=== PATIENT | female | born 1945 | race Caucasian/White ===

== ENCOUNTER → 2016-09-21 | Outpatient (CLI) | payer OTHER ==
[~2016-09-21] MED LIST: ACET-749 PO; ATOR10TA82 PO; Atorvastatin PO; CALC500C3 PO; CLC100 PO; CLR10 PO; MENT1LOZ; METO25TA3 PO; MXZC25 PO; Metoprolol PO; SALINE; TRIATAB3 PO; Tums; Tylenol; [UNRECOGNIZED DRUG - CODE] NAE
--- NOTE | 2016-09-21 12:12 | DIAGNOSTIC IMAGING REPORT ---
RENAL ULTRASOUND CLINICAL HISTORY: Left renal lesion. COMPARISON STUDY: CT of the abdomen and pelvis March 23, 2016. TECHNIQUE: Sonography of the kidneys and the urinary bladder was performed. FINDINGS: The right kidney measures 9.9 x 5.5 x 4.3 cm and the left measures 10 x 5.2 x 5.6 cm. There is no hydronephrosis. There is a 1.7 cm left renal cyst. The 1.7 cm lesion arising from the lower pole of the left kidney shown on CT of March 23, 2016 is not visualized on this exam as the lower pole is obscured by overlying bowel gas. A 2.3 cm echogenic splenic lesion is unchanged since exam of May 14, 2015 and therefore likely benign. The bladder is unremarkable. IMPRESSION: 1. The 1.7 cm lesion arising from the lower pole of the left kidney shown on CT of March 23, 2016 is not visualized by sonography due to overlying bowel gas. 2. No hydronephrosis. Electronically signed by: Noah London M.D. 09/21/2016 12:11 PM Dictated Date/Time: 09/21/2016 12:07 PM
== END | disposition home or self-care (01) ==
LOC: C.ULTR 11:30
PROVIDERS: ATTEND Urology
DX: N28.89 Other specified disorders of kidney and ureter (principal); N28.9 Disorder of kidney and ureter, unspecified

== ENCOUNTER → 2016-10-26 | Day surgery (SDC) | payer OTHER ==
[2016-10-19 12:33] VITALS: Ht 165.1 cm; Wt 76.4 kg
[~2016-10-26] VITALS: Ht 165.1 cm; Wt 76.4 kg
[~2016-10-26] MED LIST changes: +500ML BSS 0.3ML EPI 1:1000PF IRRIG ONE; +ACETAMINOPHEN 325 MG TAB PO PRN; +AMVISC PLUS 0.8ML SYRINGE INT OCU ONE; +ATROPINE SULFATE 0.1 MG/ML 5ML SYR IV PRN; +AcetaZOLAMIDE 250 MG TAB PO SCH; -Atorvastatin PO; +BETAXOLOL HCL 0.25% OP SUSP PER DROP CHARGE OPL SCH; +BRIMONIDINE TART 0.2% OP SOLN PER DROP CHARGE ONE; +BSS FLUSH ONE; +ENDOCOAT 0.85ML SYRINGE INT OCU ONE; +EpINEphrine INJ 1MG/ML AMP 1 MG/ML AMP ONE; +LACTATED RINGER'S 1000ML 500 ML IV SCH; +LIDOCAINE 4% OP SOLN DROP CHARGE ONE; +LIDOCAINE 4% OP SOLN DROP CHARGE OPL SCH; +LIDOCAINE HCL 1% MPF 2 ML VIAL ONE; +MIDAZOLAM HCL 1 MG/ML 2ML VIAL ONE; +MIX: 4ML BSS 1ML EPI 1:1000 PF INSTIL ONE; +MOXIFLOXACIN OPH SOLN PER DROP CHARGE ONE; -MXZC25 PO; -Metoprolol PO; +OCUCOAT 1 ML SOLN IO ONE; +POVIDONE-IODINE OP SOLN 30 ML BTL ONE; +PROPARACAINE 0.5% OP SOLN PER DROP CHARGE OPL SCH; -SALINE; +TOBRAMYCIN/DEXAMETHASONE OPH OINT PER APPLN CHARGE ONE; -Tums; -Tylenol
[2016-10-26] MEDS: PHENYLEPHRINE HCL 2.5% OP SOLN PER DROP CHARGE OPL SCH ×2 (06:46→06:53)
--- NOTE | 2016-10-26 06:47 | History & Physical Bridge - SC ---
H&P Re-Evaluation Bridge Note: I have examined the patient, reviewed the History & Physical and in the interval since the performance of the History & Physical I have noted the following changes of clinical significance: No changes noted
[2016-10-26] MEDS: TROPICAMIDE 1% OP SOLN PER DROP CHARGE OPL SCH ×2 (06:48→06:54)
[2016-10-26] MEDS: CYCLOPENTOLATE HCL 1% OP SOLN PER DROP CHARGE OPL SCH ×2 (06:49→06:55)
[2016-10-26] MEDS: MOXIFLOXACIN OPH SOLN PER DROP CHARGE OPL SCH ×2 (06:51→07:01)
--- NOTE | 2016-10-26 07:30 | Discharge Instructions-SurgCtr ---
Discharge Instructions Date of Service Oct 26, 2016. Visit Reason for Visit: Cataract Left Eye Discharge Discharge Diagnosis / Problem: lens implant left eye Discharge Goals Goal(s): Improve function Activity Recommendations Activity Limitations: resume your previous activity Lifting Limitations: no more than 10 pounds Exercise/Sports Limitations: gradually increase as tolerated May Resume Sexual Activity: when tolerated Shower/Bathe: tomorrow Driving or Machine Use: resume 1 day after discharge Anesthesia . Post Anesthesia Instructions: If you have had General Anesthesia or IV Sedation: * Do not drive today. * Resume driving when surgeon permits. * Do not make important decisions or sign legal documents today. * Call surgeon for: 1. Temperature elevations greater than 101 degrees F. 2. Uncontrollable pain. 3. Excessive bleeding. 4. Persistent nausea and vomiting. 5. Medication intolerance (nausea, vomiting or rash). * For nausea and vomiting use only clear liquids such as: tea, soda, bouillon until nausea subsides, then gradually increase diet as tolerated. * If you have any concerns or questions, call your surgeon's office. If physician is unavailable and it is an emergency, call 911 or go to the nearest emergency room. . Instructions / Follow-Up Instructions / Follow-Up ACTIVITY RECOMMENDATIONS: * Light activities. * Mild irritation and blurred vision are common for the first few days. * You may walk outside, read, watch television. * Redness around the white part of the eye is common. MEDICATIONS: Resume previous medications unless instructed otherwise by your surgeon. * Take white Diamox (Acetazolamide) tablet at 1 pm today. Start all eye drops at 1 pm today: * Eye drops (today and tomorrow): Prednisone - one drop in operative eye every 3 hours while awake Ofloxacin - one drop in operative eye every 3 hours while awake Ilevro - one drop in operative eye once a day SPECIAL CARE INSTRUCTIONS: * Tape plastic shield over eye to sleep at night. Call your doctor at with any concerns or problems. FOLLOW UP VISIT: Follow-up with Dr Johnson at [place] office as scheduled. Diet Recommendations Home Diet: no limitations Procedures Procedures Performed: Left Cataract Phacoemulsification With Intraocular Lens Implant Pending Studies Studies pending at discharge: no Medical Emergencies . Who to Call and When: Medical Emergencies: If at any time you feel your situation is an emergency, please call 911 immediately. . Non-Emergent Contact Non-Emergency issues call your: Printing Table Worker Call Non-Emergent contact if: your pain is not controlled [phone] . . "Provider Documentation" section prepared by Michael Johnson. .
--- NOTE | 2016-10-26 07:33 | [facility] Operative Report ---
Operative Report Date of Service Oct 26, 2016. Operative Report 1. PREOPERATIVE DIAGNOSIS: Senile Cortical Cataract, left eye. 2. POSTOPERATIVE DIAGNOSIS: Senile Cortical Cataract, left eye. 3. PROCEDURE: Phacoemulsification of left cataract with posterior chamber lens implant, type Bausch [employer] Lomb, model MI60L, power +6.00 diopters. ANESTHESIA: Local standby. SURGEON: Dr. Johnson. COMPLICATIONS: None. OPERATING TIME: 10 minutes. 4. OPERATION AND FINDINGS: DESCRIPTION OF PROCEDURE: The left pupil was dilated. The anesthetic was administered using a topical technique. The left eye was prepped and draped. A speculum was placed. A clear corneal incision was formed. The chamber was filled with Amvisc Plus and Endocoat. Epinephrine solution was used. A paracentesis was placed. A capsulorrhexis was performed. The nucleus was hydrodissected. The lens was removed with phacoemulsification. Time was 2.31 seconds. The aspiration unit was used to remove the cortex. The capsule was filled with Amvisc Plus. The lens implant was folded and placed into the capsule. The incision was hydrated. The Amvisc was aspirated. The wound was secure. The chamber was deep. The pupil was round. Brimonidine, TobraDex ointment and Vigamox solution were placed. The speculum was removed. The patient was returned to the Recovery Room in stable condition. I attest to the content of the Intraoperative Record and any orders documented therein. Any exceptions are noted below. The scribe's documentation has been prepared in my presence, under my direction and personally reviewed by me in its entirety. I confirm that the note above accurately reflects all work, treatment, procedures, and medical decision making performed by me. I personally scribed for Michael Johnson M.D. ([email or web address]) on 10/26/16 at 07:33. Electronically submitted by Sruthi Kirkland ([email or web address]).
--- NOTE | 2016-10-26 07:55 | Anesthesia Progress Nt - [facility] ---
Anesthesia Post Op Note Date & Time Oct 26, 2016 at 07:55 Vital Signs Pain Intensity: 0 Vital Signs Past 12 Hours Date Time Temp Pulse Resp B/P (MAP) Pulse Ox O2 Delivery O2 Flow Rate FiO2 10/26/16 07:34 36.3 60 16 118/71 (87) 96 Room Air 10/26/16 06:55 36.7 63 16 111/58 (75) 97 Room Air Notes Mental Status: alert / awake / arousable, participated in evaluation Pt Amnestic to Procedure: Yes Nausea / Vomiting: adequately controlled Pain: adequately controlled Airway Patency, RR, SpO2: stable & adequate BP & HR: stable & adequate Hydration State: stable & adequate Anesthetic Complications: no major complications apparent
[2016-10-26 07:56] VITALS: BP 123/63; PULSE 55; O2SAT 98
== END | disposition home or self-care (01) ==
LOC: X.SURG 06:26
PROVIDERS: ATTEND Specialist
DX: H25.012 Cortical age-related cataract, left eye (principal)

== ENCOUNTER → 2016-11-09 | Day surgery (SDC) | payer OTHER ==
[2016-11-04 07:48] VITALS: Ht 165.1 cm; Wt 76.4 kg
[~2016-11-09] VITALS: Ht 165.1 cm; Wt 76.4 kg
[~2016-11-09] MED LIST changes: -AcetaZOLAMIDE 250 MG TAB PO SCH; -BETAXOLOL HCL 0.25% OP SUSP PER DROP CHARGE OPL SCH; +BETAXOLOL HCL 0.25% OP SUSP PER DROP CHARGE OPR SCH; -BSS FLUSH ONE; +EpHEDrine SULFATE INJ 50 MG/ML AMP IV PRN; -LIDOCAINE 4% OP SOLN DROP CHARGE OPL SCH; +LIDOCAINE 4% OP SOLN DROP CHARGE OPR SCH; -PROPARACAINE 0.5% OP SOLN PER DROP CHARGE OPL SCH; +PROPARACAINE 0.5% OP SOLN PER DROP CHARGE OPR SCH
[2016-11-09] MEDS: PHENYLEPHRINE HCL 2.5% OP SOLN PER DROP CHARGE OPR SCH ×2 (07:01→07:05)
[2016-11-09] MEDS: CYCLOPENTOLATE HCL 1% OP SOLN PER DROP CHARGE OPR SCH ×2 (07:02→07:07)
[2016-11-09] MEDS: TROPICAMIDE 1% OP SOLN PER DROP CHARGE OPR SCH ×2 (07:02→07:06)
[2016-11-09] MEDS: MOXIFLOXACIN OPH SOLN PER DROP CHARGE OPR SCH ×2 (07:03→07:14)
--- NOTE | 2016-11-09 07:52 | Discharge Instructions-SurgCtr ---
Discharge Instructions Date of Service Nov 09, 2016. Visit Reason for Visit: Right Cataract Discharge Discharge Diagnosis / Problem: lens implant right eye Discharge Goals Goal(s): Improve function Activity Recommendations Activity Limitations: resume your previous activity Lifting Limitations: no more than 10 pounds Exercise/Sports Limitations: gradually increase as tolerated May Resume Sexual Activity: when tolerated Shower/Bathe: tomorrow Driving or Machine Use: resume 1 day after discharge Anesthesia . Post Anesthesia Instructions: If you have had General Anesthesia or IV Sedation: * Do not drive today. * Resume driving when surgeon permits. * Do not make important decisions or sign legal documents today. * Call surgeon for: 1. Temperature elevations greater than 101 degrees F. 2. Uncontrollable pain. 3. Excessive bleeding. 4. Persistent nausea and vomiting. 5. Medication intolerance (nausea, vomiting or rash). * For nausea and vomiting use only clear liquids such as: tea, soda, bouillon until nausea subsides, then gradually increase diet as tolerated. * If you have any concerns or questions, call your surgeon's office. If physician is unavailable and it is an emergency, call 911 or go to the nearest emergency room. . Instructions / Follow-Up Instructions / Follow-Up ACTIVITY RECOMMENDATIONS: * Light activities. * Mild irritation and blurred vision are common for the first few days. * You may walk outside, read, watch television. * Redness around the white part of the eye is common. MEDICATIONS: Resume previous medications unless instructed otherwise by your surgeon. Start all eye drops at 1 pm today: * Eye drops (today and tomorrow): Prednisone - one drop in operative eye every 3 hours while awake Ofloxacin - one drop in operative eye every 3 hours while awake SPECIAL CARE INSTRUCTIONS: * Tape plastic shield over eye to sleep at night. Call your doctor at with any concerns or problems. FOLLOW UP VISIT: Follow-up with Dr Johnson at [facility] as scheduled. Diet Recommendations Home Diet: no limitations Procedures Procedures Performed: cataract extraction with lens implant Pending Studies Studies pending at discharge: no Medical Emergencies . Who to Call and When: Medical Emergencies: If at any time you feel your situation is an emergency, please call 911 immediately. . Non-Emergent Contact Non-Emergency issues call your: Employee Relations Advisor Call Non-Emergent contact if: your pain is not controlled [phone] . . "Provider Documentation" section prepared by Michael Johnson. .
--- NOTE | 2016-11-09 07:53 | [facility] Operative Report ---
Operative Report Date of Service Nov 09, 2016. Operative Report 1. PREOPERATIVE DIAGNOSIS: Senile nuclear cataract, right eye. 2. POSTOPERATIVE DIAGNOSIS: Senile nuclear cataract, right eye. 3. PROCEDURE: Phacoemulsification of right cataract with posterior chamber lens implant, type Bausch [employer] Lomb, model MI60L, power +5.00 diopters. ANESTHESIA: Local standby. SURGEON: Dr. Johnson. COMPLICATIONS: None. OPERATING TIME: 10 minutes. 4. OPERATION AND FINDINGS: DESCRIPTION OF PROCEDURE: The right pupil was dilated. The anesthetic was administered using a topical technique. The right eye was prepped and draped. A speculum was placed. A clear corneal incision was formed. The chamber was filled with Amvisc Plus and Endocoat. Epinephrine solution was used. A paracentesis was placed. A capsulorrhexis was performed. The nucleus was hydrodissected. The lens was removed with phacoemulsification. Time was 2.74 seconds. The aspiration unit was used to remove the cortex. The capsule was filled with Amvisc Plus. The lens implant was folded and placed into the capsule. The incision was hydrated. The Amvisc was aspirated. The wound was secure. The chamber was deep. The pupil was round. Brimonidine, TobraDex ointment and Vigamox solution were placed. The speculum was removed. The patient was returned to the Recovery Room in stable condition. I attest to the content of the Intraoperative Record and any orders documented therein. Any exceptions are noted below. The scribe's documentation has been prepared in my presence, under my direction and personally reviewed by me in its entirety. I confirm that the note above accurately reflects all work, treatment, procedures, and medical decision making performed by me. I personally scribed for Michael Johnson M.D. ([email or web address]) on 11/09/16 at 07:53. Electronically submitted by Sruthi Kirkland ([email or web address]).
[2016-11-09 07:55] VITALS: TEMP 36.3
--- NOTE | 2016-11-09 08:14 | Anesthesia Progress Nt - [facility] ---
Anesthesia Post Op Note Date & Time Nov 09, 2016 at 08:14 Vital Signs Pain Intensity: 0 Vital Signs Past 12 Hours Date Time Temp Pulse Resp B/P (MAP) Pulse Ox O2 Delivery O2 Flow Rate FiO2 11/09/16 07:55 36.3 56 16 106/68 (81) 95 Room Air 11/09/16 06:45 36.9 59 16 101/70 (80) 96 Room Air Notes Mental Status: alert / awake / arousable, participated in evaluation Pt Amnestic to Procedure: Yes Nausea / Vomiting: adequately controlled Pain: adequately controlled Airway Patency, RR, SpO2: stable & adequate BP & HR: stable & adequate Hydration State: stable & adequate Anesthetic Complications: no major complications apparent
[2016-11-09 08:16] VITALS: BP 124/83; PULSE 73; O2SAT 94
== END | disposition home or self-care (01) ==
LOC: X.SURG 06:36
PROVIDERS: ATTEND Specialist
DX: H25.11 Age-related nuclear cataract, right eye (principal); I51.9 Heart disease, unspecified

== ENCOUNTER → 2017-01-02 | Outpatient (CLI) | payer OTHER ==
[~2017-01-02] MED LIST changes: -500ML BSS 0.3ML EPI 1:1000PF IRRIG ONE; -ACET-749 PO; -ACETAMINOPHEN 325 MG TAB PO PRN; -AMVISC PLUS 0.8ML SYRINGE INT OCU ONE; -ATOR10TA82 PO; +ATOR10TA88 PO; -ATROPINE SULFATE 0.1 MG/ML 5ML SYR IV PRN; -BETAXOLOL HCL 0.25% OP SUSP PER DROP CHARGE OPR SCH; -BRIMONIDINE TART 0.2% OP SOLN PER DROP CHARGE ONE; -CLC100 PO; -ENDOCOAT 0.85ML SYRINGE INT OCU ONE; -EpHEDrine SULFATE INJ 50 MG/ML AMP IV PRN; -EpINEphrine INJ 1MG/ML AMP 1 MG/ML AMP ONE; -LACTATED RINGER'S 1000ML 500 ML IV SCH; -LIDOCAINE 4% OP SOLN DROP CHARGE ONE; -LIDOCAINE 4% OP SOLN DROP CHARGE OPR SCH; -LIDOCAINE HCL 1% MPF 2 ML VIAL ONE; -MENT1LOZ; -MIDAZOLAM HCL 1 MG/ML 2ML VIAL ONE; -MIX: 4ML BSS 1ML EPI 1:1000 PF INSTIL ONE; -MOXIFLOXACIN OPH SOLN PER DROP CHARGE ONE; -OCUCOAT 1 ML SOLN IO ONE; +OPTIRAY 320 IV PRN; -POVIDONE-IODINE OP SOLN 30 ML BTL ONE; -PROPARACAINE 0.5% OP SOLN PER DROP CHARGE OPR SCH; -TOBRAMYCIN/DEXAMETHASONE OPH OINT PER APPLN CHARGE ONE; -[UNRECOGNIZED DRUG - CODE] NAE
--- NOTE | 2017-01-02 12:12 | DIAGNOSTIC IMAGING REPORT ---
KIDNEY (ABDOMEN) COMBO HISTORY: 71 years-old Female Z00.00 Health Maintenance E78.5 Dyslipidemia 25.10 Coronary arter . Patient presents for a follow-up exam of a left renal mass. COMPARISON: Renal ultrasound 09/21/2016, CT abdomen 03/23/2016, CT chest 05/13/2015. TECHNIQUE: Multiple axial CT images of the abdomen were obtained utilizing renal mass protocol both with and without contrast. 93 mL Optiray 320 was utilized. A dose lowering technique was used consistent with the principals of CHRISTINA. FINDINGS: There is subsegmental atelectasis and/or scarring of the lung bases, notably within the medial basal segment right lower lobe. There is a 5 mm area of pleural-based nodularity abutting the diaphragm the posterior basal segment right lower lobe seen on image 87, unchanged dating back to CT chest 05/13/2015 suggesting benign etiology. There is mild cardiac enlargement. Coronary arterial calcifications are partially imaged. There is no pneumoperitoneum. Multiple gallstones are again seen layering within the gallbladder lumen. The liver, pancreas and adrenal glands are within normal limits. Ill-defined slightly low attenuating lesion of the mid spleen is again seen, 2.4 x 1.9 cm, previously 2.5 x 2.3 cm. Additional smaller lesions are again seen scattered throughout the spleen which are again nonspecific however statistically benign. Multiple low attenuating subcentimeter lesions throughout the right kidney suggests renal cysts, unchanged from comparison. There is a lobulated 1.6 x 1.1 x 0.8 cm lesion of the inferior pole left kidney which appears unchanged in size from comparison study and again enhances with washout suspicious for neoplasm. No additional suspicious appearing enhancing renal masses are identified. There is a nonobstructing 3 mm calculus of the interpolar left kidney. No obstructive uropathy. External renal pelvis noted bilaterally. No urothelial mass lesions or filling defects within the collecting systems are identified. There is moderate atherosclerotic plaquing of the abdominal aorta. No bulky adenopathy is identified. There is mild dilation of the duodenum, likely physiologic without bowel obstruction. Scattered noninflamed colonic diverticula are noted. The appendix appears noninflamed. Soft tissues are unremarkable. Bones appear intact. IMPRESSION: 1. Unchanged lobulated exophytic lesion of the inferior pole left kidney is seen measuring up to 1.6 cm demonstrating enhancement with washout. 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 No evidence of associated local invasion or metastatic disease. 2. Additional incidental findings as above including colonic diverticulosis, cholelithiasis, nonobstructing left renal calculus and cardiomegaly. The above report was generated using voice recognition software. It may contain grammatical, syntax or spelling errors. Electronically signed by: Eric Mcnamara M.D. 01/02/2017 12:11 PM Dictated Date/Time: 01/02/2017 11:52 AM
== END | disposition home or self-care (01) ==
LOC: C.CTS 10:56
PROVIDERS: ATTEND Urology
DX: Z00.00 Encounter for general adult medical examination without abnormal findings (principal); N28.89 Other specified disorders of kidney and ureter; J30.9 Allergic rhinitis, unspecified; I25.10 Atherosclerotic heart disease of native coronary artery without angina pectoris; E78.5 Hyperlipidemia, unspecified; K57.30 Diverticulosis of large intestine without perforation or abscess without bleeding; K80.20 Calculus of gallbladder without cholecystitis without obstruction; N20.0 Calculus of kidney; I51.7 Cardiomegaly

== ENCOUNTER 2017-03-07 06:46 | Inpatient (IN) | payer OTHER ==
[2017-02-22 14:59] LABS: BASO % 0.3 %; BASO ABS # 0.02 K/uL (0-0.2); COMPLETE YES; EOS % 1.3 %; HEMATOCRIT 40.9 % (37-47); IG% 0.1 %; LYMPH % 31.1 %; LYMPH ABS # 2.14 K/uL (1.2-3.4); MEAN CELL VOLUME 92.7 fL (80-100); MEAN CORPUSCULAR HEMOGLOBIN 30.4 pg (25-34); MEAN CORPUSCULAR HGB CONC 32.8 g/dl (32-36); MEAN PLATELET VOLUME 11.5 fL (7.4-10.4); NEUT % 59.2 %; PLATELET COUNT 228 K/uL (130-400); RED BLOOD COUNT 4.41 M/uL (4.2-5.4); WHITE BLOOD COUNT 6.88 K/uL (4.8-10.8)
--- NOTE | 2017-02-22 15:04 | PAT Medication Instructions ---
Service Date Feb 22, 2017. Current Home Medication List Atorvastatin (Lipitor), 10 MG PO HS Calcium Carbonate (Tums), 1 TAB PO QAM Loratadine (Claritin), 10 MG PO DAILY PRN for allergy Metoprolol Succ (Toprol Xl) (Toprol-Xl), 25 MG PO HS Triamterene/Hctz (Triamterene/Hctz 37.5-25MG), 1 TAB PO Q2D Medication Instructions For Your Scheduled Surgery - Hold the following medications the morning of surgery: Calcium Carbonate (Tums), 1 TAB PO QAM Loratadine (Claritin), 10 MG PO DAILY PRN for allergy Triamterene/Hctz (Triamterene/Hctz 37.5-25MG), 1 TAB PO Q2D - Take the following medications as scheduled the night before surgery: Metoprolol Succ (Toprol Xl) (Toprol-Xl), 25 MG PO HS Loratadine (Claritin), 10 MG PO DAILY PRN for allergy Atorvastatin (Lipitor), 10 MG PO HS If you have any questions please call us at [phone] or [phone] or [phone]
[2017-02-22 15:32] LABS: BUN/CREATININE RATIO 28.6 (10-20); CALCIUM 8.7 mg/dl (8.5-10.1); CREATININE 0.88 mg/dl (0.60-1.20); POTASSIUM 3.6 mmol/L (3.5-5.1)
--- NOTE | 2017-02-22 15:36 | DIAGNOSTIC IMAGING REPORT ---
CHEST PREADMISSION(PA/LAT) CLINICAL HISTORY: Preoperative chest. Mitral valve prolapse. COMPARISON STUDY: CT scan dated 09/23/2015 FINDINGS: The cardiac and mediastinal contours are normal. There is no evidence of focal pulmonary consolidation. There is no evidence of failure. No pleural effusions are visualized.[ IMPRESSION: No active disease in the chest. Electronically signed by: Paul Herrera M.D. 02/22/2017 3:34 PM Dictated Date/Time: 02/22/2017 3:34 PM
[2017-02-22 16:29] LABS: URINE APPEARANCE CLEAR (CLEAR); URINE BILIRUBIN NEG (NEG); URINE COLOR YELLOW; URINE NITRITE NEG (NEG); URINE PH 5.5 (4.5-7.5); URINE SPECIFIC GRAVITY 1.028 (1.000-1.030); UROBILINOGEN NEG (NEG)
[2017-02-22 16:30] LABS: MANUAL MICROSCOPIC REQUIRED? NO; REVIEW REQ? NO
[~2017-03-07] VITALS: Ht 162.6 cm; Wt 80.7 kg
[2017-03-07] VITALS (8 sets, daily range): BP systolic 93–108; BP diastolic 55–76; PULSE 62–80; TEMP 36.6–37.1; O2SAT 95–97; Ht 162.6 cm; Wt 80.7 kg
[~2017-03-07 06:46] MED LIST changes: +ATOR10TA82 PO; -ATOR10TA88 PO; +CEFAZOLIN 2000MG IV PUSH 10 ML IV SCH; +LACTATED RINGER'S 1000ML 1,000 ML IV SCH; -OPTIRAY 320 IV PRN
[2017-03-07] MEDS ORDERED: [UNRECOGNIZED DRUG - CODE] NAE (07:18)
[2017-03-07] MEDS ORDERED: MENT1LOZ (07:19)
[2017-03-07] MEDS ORDERED: EpHEDrine SULFATE INJ 50 MG/ML AMP IV PRN (07:30)
[2017-03-07] MEDS ORDERED: LABETALOL HCL IV 5 MG/ML 20ML IV PRN (07:30)
[2017-03-07] MEDS ORDERED: ATROPINE SULFATE 0.1 MG/ML 5ML SYR IV PRN (07:30)
[2017-03-07] MEDS ORDERED: PROMETHAZINE HCL INJ 12.5 MG in SODIUM CHLORIDE 0.9% 50ML 50 ML IV PRN (07:30)
[2017-03-07] MEDS ORDERED: PHENYLEPHRINE 100MCG/ML 5ML SYR IV PRN (07:30)
[2017-03-07] MEDS ORDERED: ONDANSETRON INJ 2 MG/ML 2 ML VIAL IV PRN ×2 (07:30→12:00)
[2017-03-07] MEDS ORDERED: FENTANYL CITRATE INJ 50 MCG/1 ML 2 ML VIAL IV PRN (07:30)
[2017-03-07] MEDS ORDERED: HYDROmorphone INJ 1 MG/ML SYR IV PRN ×2 (07:30→12:00)
[2017-03-07] MEDS ORDERED: NEOSTIGMINE METHYLSULFATE 5 MG/5 ML SYR ONE (08:08)
[2017-03-07] MEDS ORDERED: ONDANSETRON INJ 2 MG/ML 2 ML VIAL ONE (08:08)
[2017-03-07] MEDS ORDERED: GLYCOPYRROLATE INJ 0.2 MG/ML VIAL ONE (08:08)
[2017-03-07] MEDS ORDERED: PHENYLEPHRINE HCL INJ 10 MG/ML VIAL ONE (08:08)
[2017-03-07] MEDS ORDERED: MIDAZOLAM HCL 1 MG/ML 2ML VIAL ONE (08:08)
[2017-03-07] MEDS ORDERED: EpHEDrine SULFATE INJ 50 MG/ML AMP ONE (08:08)
[2017-03-07] MEDS ORDERED: DEXAMETHASONE SOD INJ 4 MG/ML VIAL ONE ×2 (08:08→09:49)
[2017-03-07] MEDS ORDERED: SUCCINYLCHOLINE CHLORIDE 20 MG/ML 10 ML VIAL IV ONE (08:08)
[2017-03-07] MEDS ORDERED: FENTANYL CITRATE INJ 50 MCG/1 ML 2 ML VIAL ONE ×2 (08:08→08:09)
[2017-03-07] MEDS ORDERED: LIDOCAINE HCL 2% 2 ML VIAL (20MG/ML) ONE (08:08)
[2017-03-07] MEDS ORDERED: PROPOFOL IV EMULSION 10 MG/ML 20 ML VIAL IV ONE ×2 (08:08→09:52)
[2017-03-07] MEDS ORDERED: BUPIVACAINE 0.5 % 5 MG/1 ML MPF 30ML VIAL ONE (08:47)
[2017-03-07] MEDS ORDERED: GELATIN SPONGE SZ 100 ONE (08:47)
[2017-03-07] MEDS ORDERED: SCOPOLAMINE 1.5 MG TDSY TD ONE (08:48)
[2017-03-07] MEDS ORDERED: HYDROmorphone INJ 2 MG/ML SYR/VIAL ONE (09:45)
[2017-03-07] MEDS ORDERED: RANITIDINE HCL 25 MG/ML INJ ONE (09:49)
[2017-03-07] MEDS ORDERED: METOCLOPRAMIDE HCL INJ 5 MG/ML 2 ML VIAL ONE (09:49)
[2017-03-07] MEDS ORDERED: ROCURONIUM BROMIDE 10 MG/ML 5 ML VIAL IV ONE (10:47)
[2017-03-07] MEDS ORDERED: MANNITOL 25% 50 ML VIAL ONE ×2 (10:47→10:48)
[2017-03-07] MEDS ORDERED: PHENYLEPHRINE 100MCG/ML 5ML SYR ONE (11:36)
[2017-03-07] MEDS ORDERED: FLOSEAL HEMOSTATIC MATRIX 5ML TOP ONE (11:42)
[2017-03-07] MEDS ORDERED: TISSEEL FIBRIN SEALANT 2ML TOP ONE (11:44)
[2017-03-07] MEDS: LACTATED RINGER'S 1000ML 1,000 ML IV SCH ×2 (11:50→20:04)
[2017-03-07] MEDS ORDERED: ACETAMINOPHEN/CODEINE 300/30MG TAB PO PRN (12:00)
[2017-03-07] MEDS ORDERED: LORATADINE 10 MG TAB PO PRN (12:00)
[2017-03-07 12:59] LABS: HEMATOCRIT 39.2 % (37-47); MEAN CELL VOLUME 92.2 fL (80-100); MEAN CORPUSCULAR HEMOGLOBIN 30.1 pg (25-34); MEAN PLATELET VOLUME 10.8 fL (7.4-10.4); PLATELET COUNT 166 K/uL (130-400); RED BLOOD COUNT 4.25 M/uL (4.2-5.4); WHITE BLOOD COUNT 10.41 K/uL (4.8-10.8)
--- NOTE | 2017-03-07 13:01 | Anesthesiology Progress Note ---
Anesthesia Post Op Note Date & Time Mar 07, 2017 at 13:01 Vital Signs Pain Intensity: 0 Vital Signs Past 12 Hours Date Time Temp Pulse Resp B/P (MAP) Pulse Ox O2 Delivery O2 Flow Rate FiO2 03/07/17 12:55 36.8 63 16 106/58 97 Nasal Cannula 2 03/07/17 12:45 60 16 104/62 97 Nasal Cannula 2 03/07/17 12:35 71 16 113/59 97 Oxymask 10 03/07/17 12:25 72 16 113/55 99 Oxymask 10 03/07/17 12:15 36.7 78 16 114/70 96 Oxymask 10 03/07/17 07:20 36.6 62 20 97/60 (72) 97 Room Air Notes Mental Status: alert / awake / arousable, participated in evaluation Pt Amnestic to Procedure: Yes Nausea / Vomiting: adequately controlled Pain: adequately controlled Airway Patency, RR, SpO2: stable & adequate BP & HR: stable & adequate Hydration State: stable & adequate Anesthetic Complications: no major complications apparent
[2017-03-07 13:23] LABS: BUN/CREATININE RATIO 27.8 (10-20); CALCIUM 8.2 mg/dl (8.5-10.1); CREATININE 0.82 mg/dl (0.60-1.20)
[2017-03-07 13:29] LABS: MEAN CORPUSCULAR HGB CONC 32.7 g/dl (32-36)
[2017-03-07] MEDS ORDERED: INFLUENZA ADMINISTRATION CHARGE ONE (14:45)
[2017-03-07] MEDS ORDERED: INFLUENZA VACCINE HIGH DOSE 65+ 0.5 ML SYR IM. ONE (14:45)
[2017-03-07] MEDS: ACETAMINOPHEN 500 MG TAB PO SCH ×2 (18:05→22:29)
[2017-03-07] MEDS: CEFAZOLIN IV 2,000 MG in SYRINGE 0 ML IV SCH (18:06)
[2017-03-07] MEDS ORDERED: METOPROLOL SUCC 25MG EXT REL TAB PO SCH (21:00)
[2017-03-07] MEDS ORDERED: ATORVASTATIN 10 MG TAB PO SCH (21:00)
[2017-03-07] MEDS: DOCUSATE SODIUM 100 MG CAP PO SCH (21:15)
[2017-03-08] MEDS: CEFAZOLIN IV 2,000 MG in SYRINGE 0 ML IV SCH ×2 (02:00→10:30)
[2017-03-08 03:42] VITALS: BP 96/60; PULSE 65; TEMP 37.1; O2SAT 92
[2017-03-08] MEDS: ACETAMINOPHEN 500 MG TAB PO SCH ×2 (04:03→10:30)
[2017-03-08] MEDS: LACTATED RINGER'S 1000ML 1,000 ML IV SCH ×2 (04:03→11:50)
[2017-03-08 06:23] LABS: BASO % 0.2 %; BASO ABS # 0.02 K/uL (0-0.2); COMPLETE YES; EOS % 0.1 %; HEMATOCRIT 34.3 % (37-47); IG% 0.2 %; LYMPH % 16.4 %; LYMPH ABS # 1.56 K/uL (1.2-3.4); MEAN CELL VOLUME 91.5 fL (80-100); MEAN CORPUSCULAR HEMOGLOBIN 29.9 pg (25-34); MEAN CORPUSCULAR HGB CONC 32.7 g/dl (32-36); MEAN PLATELET VOLUME 11.1 fL (7.4-10.4); NEUT % 74.1 %; PLATELET COUNT 175 K/uL (130-400); RED BLOOD COUNT 3.75 M/uL (4.2-5.4); WHITE BLOOD COUNT 9.54 K/uL (4.8-10.8)
[2017-03-08 06:44] LABS: PARTIAL THROMBOPLASTIN RATIO 1.1; PROTHROMBIN TIME (PATIENT) 10.5 SECONDS (9.0-12.0)
[2017-03-08 06:58] LABS: BUN/CREATININE RATIO 24.6 (10-20); CALCIUM 7.8 mg/dl (8.5-10.1); CREATININE 0.79 mg/dl (0.60-1.20); POTASSIUM 3.7 mmol/L (3.5-5.1)
[2017-03-08 07:19] VITALS: BP 98/62; PULSE 69; TEMP 36.8; O2SAT 92
--- NOTE | 2017-03-08 07:55 | Progress Note ---
Subjective Date of Service: Mar 08, 2017. Subjective Pt evaluation today including: conversation w/ patient, chart review, lab review Voiding: alvares catheter in place (patent, draining clear, yellow urine) 71 yo female s/p left partial nephrectomy. Pt reporting she feels well this morning other than some bladder discomfort from her alvares catheter. Denies n/v. Tolerating clear liquids. Requesting cottage cheese and toast for breakfast. I&Os acceptable. H&H stable. Cr remains normal at 0.79. She is hypotensive at 98/62. She has not yet been OOB. Review of Systems Constitutional: No fever, No chills Respiratory: No shortness of breath Cardiac: No chest pain Abdomen: No pain, No nausea, No vomiting Female : No hematuria Heme: No abnormal bleeding/bruising Objective Vital Signs Date Time Temp Pulse Resp B/P (MAP) Pulse Ox O2 Delivery O2 Flow Rate FiO2 03/08/17 07:19 36.8 69 17 98/62 (74) 92 Room Air 03/08/17 03:42 37.1 65 16 96/60 (72) 92 Room Air 03/07/17 23:45 Room Air 03/07/17 23:28 37.1 70 18 98/59 (72) 95 Room Air 2.0 03/07/17 21:16 80 94/59 (71) 03/07/17 19:15 37.1 73 16 93/59 (70) 96 Room Air 03/07/17 16:41 36.6 70 18 100/65 (77) 97 Nasal Cannula 2.0 03/07/17 16:30 Nasal Cannula 2.0 03/07/17 15:45 66 16 96/60 (72) 96 Nasal Cannula 2.0 03/07/17 14:23 66 16 95/55 (68) 97 Nasal Cannula 2.0 03/07/17 13:35 Nasal Cannula 2.0 03/07/17 13:35 97 Nasal Cannula 2.0 03/07/17 13:35 37.0 64 16 108/76 (87) 97 Nasal Cannula 2.0 03/07/17 13:05 36.8 62 16 114/61 96 Nasal Cannula 2 03/07/17 12:55 36.8 63 16 106/58 97 Nasal Cannula 2 03/07/17 12:45 60 16 104/62 97 Nasal Cannula 2 03/07/17 12:35 71 16 113/59 97 Oxymask 10 03/07/17 12:25 72 16 113/55 99 Oxymask 10 03/07/17 12:15 36.7 78 16 114/70 96 Oxymask 10 Physical Exam General Appearance: no apparent distress Eyes: normal inspection ENT: hearing grossly normal Neck: no JVD Respiratory/Chest: no respiratory distress, no accessory muscle use Cardiovascular: no JVD Abdomen: + pertinent finding (abdominal incisions c/d/i) Extremities: normal inspection Neurologic/Psychiatric: alert, normal mood/affect, oriented x 3 Skin: normal color Laboratory Results Last 24 Hours Test 03/07/17 12:39 03/08/17 06:02 White Blood Count 10.41 K/uL 9.54 K/uL Red Blood Count 4.25 M/uL 3.75 M/uL Hemoglobin 12.8 g/dL 11.2 g/dL Hematocrit 39.2 % 34.3 % Mean Corpuscular Volume 92.2 fL 91.5 fL Mean Corpuscular Hemoglobin 30.1 pg 29.9 pg Mean Corpuscular Hemoglobin Concent 32.7 g/dl 32.7 g/dl RDW Standard Deviation 44.5 fL 44.5 fL RDW Coefficient of Variation 13.3 % 13.4 % Platelet Count 166 K/uL 175 K/uL Mean Platelet Volume 10.8 fL 11.1 fL Sodium Level 140 mmol/L 139 mmol/L Potassium Level 4.0 mmol/L 3.7 mmol/L Chloride Level 107 mmol/L 107 mmol/L Carbon Dioxide Level 23 mmol/L 26 mmol/L Anion Gap 10.0 mmol/L 6.0 mmol/L Blood Urea Nitrogen 23 mg/dl 19 mg/dl Creatinine 0.82 mg/dl 0.79 mg/dl Est Creatinine Clear Calc Drug Dose 66.6 ml/min 69.1 ml/min Estimated GFR () 84.6 88.5 Estimated GFR (Non- 73.0 76.4 BUN/Creatinine Ratio 27.8 24.6 Random Glucose 77 mg/dl 96 mg/dl Calcium Level 8.2 mg/dl 7.8 mg/dl Hepatitis C Antibody Screen NEG Neutrophils (%) (Auto) 74.1 % Lymphocytes (%) (Auto) 16.4 % Monocytes (%) (Auto) 9.0 % Eosinophils (%) (Auto) 0.1 % Basophils (%) (Auto) 0.2 % Neutrophils # (Auto) 7.07 K/uL Lymphocytes # (Auto) 1.56 K/uL Monocytes # (Auto) 0.86 K/uL Eosinophils # (Auto) 0.01 K/uL Basophils # (Auto) 0.02 K/uL Immature Granulocyte % (Auto) 0.2 % Immature Granulocyte # (Auto) 0.02 K/uL Prothrombin Time 10.5 SECONDS Prothromb Time International Ratio 1.0 Activated Partial Thromboplast Time 29.4 SECONDS Partial Thromboplastin Ratio 1.1 Assessment and Plan POD #1 s/p robotic assisted left partial nephrectomy. Will d/c alvares catheter. TOV this morning. Continue IVF for hypotension. Will advance to a mechanical soft diet for breakfast. Encourage ambulation to hallway. Encourage use of IS. Possible d/c home after lunch, but most likely tomorrow. Will d/c home with Colace and Tylenol #3. Discharge planning: home
[2017-03-08] MEDS ORDERED: ACET-749 PO (08:04)
[2017-03-08] MEDS ORDERED: CLC100 PO (08:04)
[2017-03-08] MEDS ORDERED: SODIUM CHLORIDE 0.65% NA SOLN 45 ML (OCEAN) NAE SCH (09:00)
[2017-03-08] MEDS ORDERED: TRIAMTERENE/HCTZ 37.5/25MG TAB PO SCH (09:00)
[2017-03-08] MEDS ORDERED: HEPARIN SOD 5000 UNIT/0.5 ML CARP SQ SCH (09:00)
[2017-03-08] MEDS ORDERED: CALCIUM CARBONATE 500 MG CHEWABLE PO SCH (09:00)
[2017-03-08] MEDS: DOCUSATE SODIUM 100 MG CAP PO SCH (09:22)
--- NOTE | 2017-03-08 09:34 | Discharge Instructions ---
Discharge Instructions Date of Service Mar 08, 2017. Admission Reason for Admission: Left Renal Mass Discharge Discharge Diagnosis / Problem: Left renal mass Discharge Goals Goal(s): Decrease discomfort, Improve disease control Activity Recommendations Activity Limitations: as noted below Shower/Bathe: tomorrow 1. Do not lift >15lbs x 6 weeks. 2. No heavy exercise x 6 weeks. You may engage in light activity such as walking and stairs as tolerated. 3. Do not drive x [address] while taking narcotics. 4. Follow-up as scheduled. Please call our office at [phone] if you need to reschedule for any reason. . . Current Hospital Diet Hospital Diet(s): Regular Diet Discharge Diet Recommended Diet: Regular Diet Procedures Procedures Performed: Left Laparoscopic Partial Nephrectomy Da [place] Pending Studies Studies pending at discharge: yes (renal mass) List of pending studies: left renal mass Medical Emergencies . Who to Call and When: Medical Emergencies: If at any time you feel your situation is an emergency, please call 911 immediately. . Non-Emergent Contact Non-Emergency issues call your: Urologist Call Non-Emergent contact if: temperature is above 101.5, your pain is not controlled, your pain is worsening, your pain is unusual for you, your pain is concerning you, wound has increased drainage, wound has increased redness, wound has increased pain, you have any medication questions . . "Provider Documentation" section prepared by Chelsey Larson. . VTE Core Measure Inpt VTE Proph given/why not?: Unfractionated heparin SQ, SCD's [place] Drug Monitoring Program Search Results: patient reviewed within database, no issues identified
--- NOTE | 2017-03-08 11:47 | [facility] Operative Report ---
Operative Report Operative Date Mar 07, 2017. Pre-Operative Diagnosis Left renal mass Post-Operative Diagnosis Left renal mass Procedure(s) Performed Left Laparoscopic Partial Nephrectomy Da Ashely Surgeon Dr. Seth Tamez Cleaning Specialist Surgeon(s) FRANC Carolina Estimated Blood Loss 25mL Findings 6 minutes warm ischemia time; exophytic, cystic appearing lower pole mass Specimens Permanent specimens A. Left renal mass Drains Rivera Anesthesia General Complication(s) None Disposition Recovery Room / PACU (Stable) Indications enhancing mass on CT Description of Procedure The patient was identified in the preoperative holding area, appropriate informed consents reviewed completed, and the patient was transported to the operating suite. Upon arrival she received appropriate preoperative antibiotics the form of Ancef. Adequate general anesthesia was achieved, and the patient was placed in a right side down left side up lateral decubitus position with the bed flexed. To begin the procedure, I passed a Veress needle into the left lateral aspect of the abdomen and insufflated the abdomen to 15 millimeters of mercury. I then marked tentative port locations with 2 assistant family teacher ports located at the lateral border of the rectus muscle 1 approximately 4 centimeters above the umbilicus and 1 4 centimeters below the umbilicus. A robotic camera port was placed approximately 6 centimeters lateral to the border of the rectus approximately 4 centimeters above the level of the umbilicus. Two robotic arm ports were placed at all as well, 1 just below the costal margin and the other in the right left lower quadrant. The 1st port was passed with a zero-degree lens and 10 millimeter visit port. Full inspection of the anterior abdominal wall confirm that the other sites were free of adhesions and each of these ports placed under direct vision. She did have some mild adhesions on the lateral aspect of the field adjacent to the colon, I was able to ligate these adhesions without difficulty. I then proceeded to mobilize the white line of Toldt beginning below the kidney and extending this up over the anterior surface of the kidney towards the spleen. After mobilizing the colon highly medially, I was able to visualize the gonadal vein below the level of the kidney. I created a window below the gonadal vein and onto the psoas muscle and utilized an assistant family teacher to help elevate this towards anterior abdominal wall as I dissected towards the renal hilum. Upon reaching the in the inferior aspect of the renal vein, I also encountered a lumbar vein and early branches of the renal vein. I dissected carefully around the renal vein circumferentially with care to avoid any intrusion upon any of these other venous branches. I shifted my assistant family teacher location to an area lateral to the gonadal vein and kept the gonadal vein out of our field of view as well sparing it from transection. I identified the renal artery immediately posterior to the renal vein. On imaging it appears to have an early branch, however this was not appreciated during this dissection - likely because the location were identified this was immediately adjacent to the aorta. After clearing the artery circumferentially I turned my attention back to the kidney itself. I then dissected through Gerota's fascia and the mid level of the kidney and worked my way towards the inferior pole. In the end extreme inferior pole I was able to identify an exophytic mass. I dissected circumferentially around to clear kidney on all sides. I performed a laparoscopic ultrasound evaluation at that time to determine the depth of invasion. I reviewed preoperative imaging and felt that this is lesion was in the exact location of the tumor in question on CT. Of note, the appearance of this in real life appears to be more cystic than that of the CT scan. I then pre-placed sutures into the abdomen to be used for later renorraphy. I administered 12.5 grams of mannitol and then placed a single short bulldog clamp across the renal artery. The tumor was not resected EN bloc with a very small margin associated. Visible inspection revealed intact tumor with no evidence of rupture or invasion. I then closed the kidney defect utilizing a sliding clip technique and the 3 0 V lock suture. A a past from posterior to anterior followed by anterior back posterior was all that was required to reapproximate the kidney. I then unclamped the renal artery and observed excellent hemostasis in the resection site. Warm ischemia time was 6 minutes. The specimen was collected in an Endo-Catch bag I placed FloSeal coagulant as well as Tisseel over the defect and reapproximated Gerotas fascia over the defect. After again confirming excellent hemostasis, we concluded the laparoscopic portion of the case. All ports were removed, the specimen was extracted through 1 of the assistant family teacher ports. The 12 millimeter assistant family teacher ports were closed with simple interrupted 0 Vicryl stitch, the camera port closed in the same fashion. All skin incisions were then closed with 4 0 Monocryl and dressed with Dermabond. She was subsequently extubated and sent to the PACU in stable condition I attest to the content of the Intraoperative Record and any orders documented therein. Any exceptions are noted below.
[2017-03-08 12:25] VITALS: BP 99/64; PULSE 71; TEMP 36.5; O2SAT 92
[2017-03-08 15:00] VITALS: BP 112/57; PULSE 68; TEMP 36.6; O2SAT 95
[2017-03-08 16:10] VITALS: BP 112/57; PULSE 68; TEMP 36.6; O2SAT 95
--- NOTE | 2017-03-09 08:39 | Discharge Summary ---
Discharge Summary Date of Service Mar 09, 2017. Discharge Summary Admission Date: Mar 07, 2017 at 09:00 Discharge Date: Mar 08, 2017 Discharge Disposition: Home Principal Diagnosis: renal mass Procedures: left robotic assisted laparoscopic partial nephrectomy Medication Reconciliation New Medications: Acetaminophen/Codeine (Tylenol W/Codeine #3) 300 Mg/30 Mg Tab 1-2 TAB PO Q4H PRN for Pain, #20 TAB 0 Refills Docusate Sodium (Docusate Sodium) 100 Mg Cap 100 MG PO BID PRN for Constipation, #60 CAP 0 Refills Continued Medications: Atorvastatin (Lipitor) 10 Mg Tab 10 MG PO HS, TAB Calcium Carbonate (Tums) 500 Mg Chew 1 TAB PO QAM Loratadine (Claritin) 10 Mg Tab 10 MG PO DAILY PRN for allergy, TAB 12 HR FORMULA Menthol (Mouth-Throat) (Ricola Honey-Herb) 2 Mg Jerel sugar free Metoprolol Succ (Toprol Xl) (Toprol-Xl) 25 Mg Tabcr 25 MG PO HS, #30 TAB Saline (Simply Saline) 0.9 % Aer 1 SPRAY LESLIE 3XWK Triamterene/Hctz (Triamterene/Hctz 37.5-25MG) 1 Tab Tab 1 TAB PO Q2D, TAB FOR [facility] Hospital Course The patient was admitted for partial nephrectomy secondary to a left renal mass with CT findings concerning for malignancy. The details of the procedure are as dictated previously in the operative report, however, in summary she tolerated the procedure extremely well. She remained in stable condition overnight and was ambulatory and tolerating a diet on the morning of post operative day #1. She voided after removal of her catheter and was ultimately discharged home in stable condition. Total time spent on discharge = This includes examination of the patient, discharge planning, medication reconciliation, and communication with other providers. Discharge Instructions Please see previously written d/c instructions
--- NOTE | 2017-03-17 08:51 | EDITING REQUIRED CODING QUERY ---
CODING QUERY To promote full compliance with coding requirements relating to patient care, provider participation is requested in all cases of jewel bearing maker uncertainty. Please assist us with the question(s) below: Coding Question(s): The Discharge Summary documents Left Renal Mass with CT findings concerning for malignancy. The patient had a partial nephrectomy. 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 ( ) Left Renal Mass of unknown etiology ( x ) Left Renal Mass is a benign neoplasm ((rare) cystic nephroma) ( ) Left Renal Mass is a malignant neoplasm ( ) Left Renal Mass is a Neoplasm of Uncertain Behavior ( ) Left Renal Mass is Other: Specify Physician's Response(s): Thank you Kristen Lopez Principal Diagnosis: "_that condition established after study, to be chiefly responsible for occasioning the admission of the patient to the hospital for care." Co-Existing Principal Diagnosis: "_when two or more diagnoses equally meet the criteria for principal diagnosis as determined by the circumstances of admission, diagnostic work up, and/or therapy provided, and the Alphabetic Index, Tabular List, or another coding guideline does not provide sequencing direction, any one of the diagnoses may be sequenced first." "When the physician has documented what appears to be a current diagnosis in the body of the record, but has not included the diagnosis in the final diagnostic statement, the physician should be asked whether the diagnosis should be added." (Source Coding [facility] 2 QTR90. p3-4)
== END 2017-03-08 17:15 | disposition home or self-care (01) | DRG 688 ==
LOC: C.ACU 06:46 → C.MSW 09:00 → ENRESERV 12:48
PROVIDERS: ADMIT Urology; ATTEND Urology
PROC: 0TB14ZX Excision of Left Kidney, Percutaneous Endoscopic Approach, Diagnostic (ICD-10-PCS; principal; 2017-03-07 09:00)
PROC: 8E0W4CZ Robotic Assisted Procedure of Trunk Region, Percutaneous Endoscopic Approach (ICD-10-PCS; principal; 2017-03-07 09:00)
DX: D30.02 Benign neoplasm of left kidney (principal); I25.10 Atherosclerotic heart disease of native coronary artery without angina pectoris; E78.5 Hyperlipidemia, unspecified; H91.90 Unspecified hearing loss, unspecified ear; E66.9 Obesity, unspecified; Z79.899 Other long term (current) drug therapy; Z68.30 Body mass index [BMI] 30.0-30.9, adult; Z87.891 Personal history of nicotine dependence; Z82.49 Family history of ischemic heart disease and other diseases of the circulatory system; Z80.0 Family history of malignant neoplasm of digestive organs

== ENCOUNTER → 2017-05-25 | Outpatient (CLI) | payer OTHER ==
[~2017-05-25] MED LIST changes: +ACET-749 PO; -CEFAZOLIN 2000MG IV PUSH 10 ML IV SCH; +CLC100 PO; -LACTATED RINGER'S 1000ML 1,000 ML IV SCH; +MENT1LOZ; +[UNRECOGNIZED DRUG - CODE] NAE
[2017-05-25 11:31] LABS: ALBUMIN 3.4 gm/dl (3.4-5.0); ALT/SGPT 21 U/L (12-78); AST/SGOT 22 U/L (15-37); BLOOD UREA NITROGEN 19 mg/dl (7-18); CALCIUM 8.8 mg/dl (8.5-10.1); CARBON DIOXIDE 31 mmol/L (21-32); CREATININE 0.76 mg/dl (0.60-1.20); GLUCOSE 86 mg/dl (70-99); POTASSIUM 3.7 mmol/L (3.5-5.1); SODIUM 140 mmol/L (136-145)
[2017-05-25 11:41] LABS: ALKALINE PHOSPHATASE 75 U/L (45-117); CHOLESTEROL 123 mg/dl (0-200); LDL CHOLESTEROL CALCULATED 40 mg/dl
== END | disposition home or self-care (01) ==
LOC: C.LABBC 08:46
PROVIDERS: ATTEND Internal Medicine
DX: E78.5 Hyperlipidemia, unspecified (principal); D30.00 Benign neoplasm of unspecified kidney; I25.10 Atherosclerotic heart disease of native coronary artery without angina pectoris; Z68.29 Body mass index [BMI] 29.0-29.9, adult; I10 Essential (primary) hypertension; H81.09 Meniere's disease, unspecified ear

== ENCOUNTER 2020-01-13 06:30 | Observation (INO) ==
--- NOTE | 2020-01-07 16:35 | PAT Medication Instructions ---
Medication Instructions Date of Service January 07, 2020 Home Medications Medication Instructions Recorded atorvastatin 10 mg tablet 10 mg PO HS #90 tab 03/01/19 metoprolol succinate 25 mg 25 mg PO HS #90 tab 03/01/19 tablet,extended release 24 hr triamterene 37.5 1 tab PO Q2D #45 tab 03/01/19 mg-hydrochlorothiazide 25 mg tablet loratadine 10 mg capsule 10 mg PO DAILY PRN peg 400-propylene glycol 0.4 %-0.3 % eye drops 1 - 2 drops OP DAILY PRN atorvastatin 10 mg tablet 10 mg PO HS metoprolol succinate 25 mg tablet,extended release 24 hr 25 mg PO HS triamterene 37.5 mg-hydrochlorothiazide 25 mg tablet 1 tab PO Q2D calcium carbonate 400 mg calcium (1,000 mg) chewable tablet 400 mg PO DAILY PRN DO NOT take the morning of surgery loratadine 10 mg capsule 10 mg PO DAILY PRN triamterene 37.5 mg-hydrochlorothiazide 25 mg tablet 1 tab PO Q2D calcium carbonate 400 mg calcium (1,000 mg) chewable tablet 400 mg PO DAILY PRN Take morning of surgery OTHERWISE NOTHING TO EAT OR DRINK AFTER MIDNIGHT: peg 400-propylene glycol 0.4 %-0.3 % eye drops 1 - 2 drops OP DAILY PRN (if needed) Take evening before surgery atorvastatin 10 mg tablet 10 mg PO HS metoprolol succinate 25 mg tablet,extended release 24 hr 25 mg PO HS Other Notes If you have any questions please call us at [phone] or [phone] or [phone] or [phone]
--- NOTE | 2020-01-08 08:59 | Anesthesiology Consultation ---
Date of Service January 08, 2020 Assessment & Plan (1) Encounter for pre-operative examination: COVID Status: As of 01/07 assessment, patient denies travel to endemic area, known exposure/sick contacts, or symptoms of COVID19. Patient instructed that they and their household members must follow strict social distancing guidelines, wear a mask in public and avoid travel for 14 days prior to surgery. Preoperative COVID19 testing completed 01/07 at [facility]. Patient made aware to self-i solate as much as possible between COVID testing and surgery. Chart Review Chart Review: Acceptable Risk for Surgery and Patient seen in Pre Admission Testing Teaching & Discussion Instructed NPO after midnight before surgery, except medications with 15 cc of water. Medication instructions provided according to the [facility] guidelines. History Surgery Operation Date: 01/13/20 07:00 Proposed Procedures p Right Breast Lumpectomy with Localization using Lynette Benefits Advisor Marker or Needle with Right [place] Lymph Node Biopsy - Mike Stanton MD, FACS Height/Weight Height: 5 ft 5 in Weight: 80.6 kg Allergies Allergy/AdvReac Type Severity Reaction Status Date / Time aspirin Allergy Unknown ITCHING Verified 01/03/20 15:08 Poison Johanny Extract/Poison Allergy Unknown AIRBORNE Uncoded 01/03/20 15:08 [place] Extra OR CONTACT-WELTS, WEEPING LESIONS Medications Home Medications Medication Instructions Recorded Confirmed Last Taken loratadine 10 mg capsule 10 mg PO DAILY PRN cap 01/02/19 01/03/20 Unknown peg 400-propylene glycol 0.4 %-0.3 1 - 2 drops OP DAILY PRN #1 ml 01/02/19 01/03/20 Unknown % eye drops atorvastatin 10 mg tablet 10 mg PO HS #90 tab 03/01/19 01/03/20 Unknown metoprolol succinate 25 mg 25 mg PO HS #90 tab 03/01/19 01/03/20 Unknown tablet,extended release 24 hr triamterene 37.5 1 tab PO Q2D #45 tab 03/01/19 01/03/20 Unknown mg-hydrochlorothiazide 25 mg tablet calcium carbonate 400 mg calcium 400 mg PO DAILY PRN 12/18/19 01/03/20 Unknown (1,000 mg) chewable tablet Past Medical History Medical History (Updated 01/08/20 @ 15:29 by Kolton Van) Abnormal electrocardiogram T wave inversion in V1-V6; had full cardiac workup including heart cath in 2014 in [place]. Now follows annually with Dr. Camarillo. Denies any chest pain. Abnormal mammogram Allergic rhinitis Angioma Benign nevus of skin Cancer RIGHT BREAST Hearing loss History of bronchitis Left renal mass BENIGN CYSTIC MASS Lentigines Meniere's disease On HCTZ, stable. Mitral valve prolapse Per cardiology 02/28/19, prolapse with minimal MR seen on 2013 echo (done in [place], no echo on file). No murmur noted on exam at [facility]. Seborrheic keratosis Xerosis of skin Exercise / Class Metabolic Activity II 4-5 Yardwork/Stairs/Walk up hill Past Family History Family History Mother Colon cancer Stroke Brother Cancer Father Hypertension Other Coronary heart disease Past Surgical History Surgical History (Updated 01/08/20 @ 15:29 by Kolton Van) History of cardiac cath Done for abnormal stress test, per cardiology note 02/28/19 no obstructive disease. History of colonoscopy Hx of partial nephrectomy Past Anesthesia History No Hx of Anesthesia Complications and No Family Hx of Anesthesia Complications History of PONV No Hx of PONV and No Hx of Motion Sickness Social History Smoking Status: Former smoker Do You Dip or Chew Tobacco: No Smoking End Date: QUIT 2012 Hx Alcohol Use: Yes Alcohol type: beer and hard liquor alcohol intake frequency: other Alcohol Intake Frequency Comment: 1 DRINK PER WEEK Hx Substance Use: No Review of Systems Pt denies any recent chest pain, shortness of breath, cough, fever, URI, or uncontrolled acid reflux. +palpitations QAM Physical Exam Vital Signs BP: 131/83 P: 62bpm SPO2: 96% RA T: 98.6 F R: 16 ENMT Mouth: + dentures and + edentulous Thyromental Distance: > or= 3.5 Finger Breadths Mallampati Class: I Neck normal visual inspection and + limited neck extension Respiratory normal respiratory effort Auscultation: lungs clear to auscultation bilaterally Cardiovascular Rate/Rhythm: regular rate and regular rhythm Heart Sounds: no murmur Testing Laboratory Results 01/08/20 09:09 01/08/20 09:09 Electrocardiogram Date: 01/08/20 Findings: + SB @ (58bpm) Chronic T wave inversion in anterior leads. No significant change compared to 1 EKG.
[2020-01-08 10:17] LABS: Basophils # (auto) 0.01 K/uL (0-0.2); Basophils % (auto) 0.2 %; Eosinophils # (auto) 0.06 K/uL (0-0.5); Eosinophils % (auto) 1.1 %; Hematocrit (blood only) 41.9 % (37-47); Hemoglobin 13.7 g/dL (12.0-16.0); Lymphocytes # (auto) 1.61 K/uL (1.2-3.4); Lymphocytes % (auto) 28.6 %; Mean Corpuscular Hemoglobin 30.4 pg (25-34); Mean Corpuscular Hgb Conc 32.7 g/dL (32-36); Mean Corpuscular Volume 92.9 fL (80-100); Mean Platelet Volume 11.1 fL (7.4-10.4); Monocytes # (auto) 0.52 K/uL (0.11-0.59); Monocytes % (auto) 9.2 %; Neutrophils # (auto) 3.43 K/uL (1.4-6.5); Neutrophils % (auto) 60.9 %; Platelet Count 219 K/uL (130-400); Red Blood Count 4.51 M/uL (4.2-5.4); White Blood Count 5.63 K/uL (4.8-10.8)
[2020-01-08 10:52] LABS: Creatinine Clr Calc Pharmacy 71.1 ml/min; Est GFR (African American) 92.3; Est GFR (Non-African American) 79.6
--- NOTE | 2020-01-08 11:54 | Electrocardiogram Report ---
Test Reason : Blood Pressure : / mmHG Vent. Rate : 058 BPM Atrial Rate : 058 BPM P-R Int : 188 ms QRS Dur : 082 ms QT Int : 430 ms P-R-T Axes : 027 016 034 degrees QTc Int : 422 ms Sinus bradycardia Chronic T-wave inversion in Anterior leads Abnormal ECG When compared with ECG of 22-FEB-2017 14:17, No significant change Confirmed by Justyn Chan ([id number]) on 01/08/2020 11:54:41 AM Referred By: Mike Stanton Confirmed By:Justyn Chan
--- NOTE | 2020-01-13 05:38 | History & Physical Bridge Note ---
Date of Service January 13, 2020 History & Physical Bridge Note I have examined the patient, reviewed the History & Physical and in the interval since the performance of the History & Physical I have noted the following changes of clinical significance: no changes noted
[~2020-01-13 06:30] MED LIST changes: -ACET-749 PO; -ATOR10TA82 PO; -CALC500C3 PO; +CEFAZOLIN 2000MG 2,000 MG/15 ML SYR IV SCH; -CLC100 PO; -CLR10 PO; +LACTATED RINGER'S 1,000 ML IV SCH; -MENT1LOZ; -METO25TA3 PO; -TRIATAB3 PO; -[UNRECOGNIZED DRUG - CODE] NAE
[2020-01-13] MEDS ORDERED: LIDOCAINE HCL 2% 2 ML VIAL/AMP(20MG/ML) INFIL ONE (07:50)
[2020-01-13] MEDS ORDERED: ONDANSETRON INJ 2 MG/ML 2 ML VIAL ONE (07:50)
[2020-01-13] MEDS ORDERED: PROPOFOL IV EMULSION 10 MG/ML 20 ML VIAL IV ONE (07:50)
[2020-01-13] MEDS ORDERED: fentaNYL citrate 100 MCG/2 ML VIAL ONE ×2 (07:51→12:01)
[2020-01-13] MEDS ORDERED: MIDAZOLAM HCL 1 MG/ML 2ML VIAL ONE (07:51)
--- NOTE | 2020-01-13 09:09 | Nuclear Medicine Report ---
RIGHT BREAST LYMPHOSCINTIGRAPHY CLINICAL HISTORY: right breast cancer, sentinel lymph node biopsy COMPARISON STUDY: Breast MRI December 26, 2019. PROCEDURE: The procedure, risks and benefits were discussed with the patient and informed consent was obtained. The procedure was performed by Dr. London following a timeout. Skin of the right breast was prepped in typical fashion. A total of 0.504 mCi of Lymphoseek injected within 5 intradermal ali quots within a right periareolar distribution. The patient tolerated the procedure well and no immedi ate complications were evident. No imaging was requested at this time. IMPRESSION: Right breast lymphoscintigraphy. ACT 112: Negative or not required by law. Electronically signed by: Noah London M.D. 01/13/2020 9:08 AM
[2020-01-13] MEDS ORDERED: METHYLENE BLUE 0.5% 10 ML VIAL ONE (09:13)
[2020-01-13] MEDS ORDERED: BUPIVACAINE 0.5 % 5 MG/1 ML MPF 30ML VIAL ONE (09:13)
[2020-01-13] MEDS ORDERED: DEXAMETHASONE SOD INJ 4 MG/ML VIAL ONE (11:17)
[2020-01-13] MEDS ORDERED: ACETAMINOPHEN 1,000 MG/100 ML VIAL IV ONE (11:19)
--- NOTE | 2020-01-13 11:19 | Post Operative Brief Note ---
PG Immediate Post Op with CF Date of Surgery January 13, 2020 Pre & Post Diagnosis Operation Date: 01/13/20 10:00 Pre-Op Diagnosis: Right Breast Cancer Post-Op Diagnosis: Right Breast Cancer I identified the patient and participated in the time-out.: Yes Procedure Operation Date: 01/13/20 10:00 Actual Procedures p Right Breast Lumpectomy with Localization using Lynette Maintenance Service Technician Marker with Right [place] Lymph Node Biopsy(Right) - Mike Stanton MD, FACS Surgeon Mike Stanton MD, FACS Industrial Registered Nurse Gus Munson Estimated Blood Loss 15 Findings Consistent with Post-Op Diagnosis Specimens Specimen Description: Frozen Section: A.) right sentinel lymph node Fresh Specimen: B.) right axillary lymph node C.) right breast tissue, skin is anterior, long silk lateral, short silk medial, methylene blue is deep, plain suture superior D.) additional deep right breast tissue to muscle, long silk lateral, short silk medial, methylene blue is new deep margin E.) additional superior right breast tissue, long silk lateral, short silk medial, methylene blue is new margin F.) additional inferior right breast tissue, long silk lateral, short silk medial, methylene blue is new margain
--- NOTE | 2020-01-13 11:43 | Operative Report (OR) ---
DATE OF OPERATION: 01/13/2020 NAME OF OPERATION: Right lumpectomy with sentinel lymph node biopsy. PREOPERATIVE DIAGNOSIS: Right breast cancer. POSTOPERATIVE DIAGNOSIS: Right breast cancer. STAFF SURGEON: Mike Stanton MD AIRPORT SHUTTLE DRIVER: Serene Munson PA-C. ANESTHESIA: General. DESCRIPTION OF PROCEDURE: The patient was brought in the operating room and placed on the operating table in supine position. Her right arm was extended onto an arm board. I did use the LISA Baseball Scout preoperatively to identify the marker in the right upper outer breast. Incision was made in the right axilla using 0.5% plain Marcaine to anesthetize that incision and also the breast incision. Dissection was carried deep down into the axilla, identifying the sentinel lymph node, which was sent for frozen section. An additional lymph node was taken and sent for permanent section. The frozen section was negative. During the frozen section, we performed lumpectomy making an elliptical incision in the right upper outer breast carrying dissection using the LISA Baseball Scout deep down excising the tissue. The initial tissue was then marked right breast tissue skin anterior, long silk lateral, short silk medial, plain suture superior, methylene blue was deep margin near the muscle. This was also near the marker. It was placed into the Faxitron. I was able to see that the marker was near the deep edge. Dr. Tamez examined the tissue. At this point, additional deep tissue was taken down to the muscle, taking the tissue off the muscle, long silk suture lateral, short silk suture medial, methylene blue new deep margin. Additional superior and inferior tissue were taken around the area of the tumor with a long silk suture lateral, short silk suture medial, methylene blue new margin. Then clips were placed on the muscle at the level of the tumor. At this point, both incisions were irrigated. Deep tissue reapproximated using 2-0 plain suture and then the skin in the axilla reapproximated using 4-0 nylon suture and then in the right breast using subcuticular 4-0 Monocryl with Steri-Strips. The patient was transferred to recovery room in stable condition. My social service assistant helped with prepping, draping, excision of the lymph nodes and breast tissue and closure of the wounds. I attest to the content of the Intraoperative Record and any orders documented therein. Any exception s are noted below.
[2020-01-13] MEDS ORDERED: ePHEDrine sulfate 50 MG/ML AMP IV PRN (12:04)
[2020-01-13] MEDS ORDERED: fentaNYL citrate 100 MCG/2 ML VIAL IV PRN (12:04)
[2020-01-13] MEDS ORDERED: ATROPINE SULFATE 0.1 MG/ML 10ML SYR IV PRN (12:04)
[2020-01-13] MEDS ORDERED: ONDANSETRON INJ 2 MG/ML 2 ML VIAL IV PRN ×2 (12:04→13:08)
[2020-01-13] MEDS ORDERED: HYDROmorphone INJ 1 MG/ML SYRINGE IV PRN (12:04)
[2020-01-13] MEDS ORDERED: LABETALOL HCL IV 5 MG/ML 20ML IV PRN (12:04)
[2020-01-13] MEDS ORDERED: KETOROLAC TROMETHAMINE 15 MG/ML VIAL IV ONE (12:24)
--- NOTE | 2020-01-13 12:24 | Anesthesiology Progress Note ---
Date of Service January 13, 2020 Anesthesia Post Procedure Vital Signs Vital Signs: Temp Pulse Pulse Resp BP Pulse Ox 01/13/20 12:11 57 L 12 127/71 93 01/13/20 11:50 61 20 140/73 98 01/13/20 11:40 59 L 20 132/64 99 01/13/20 11:34 36.2 C L 64 18 147/71 H 98 01/13/20 07:04 36.5 C 67 20 105/79 97 Pain Intensity Right Breast: Pain Intensity: 2 Transfer of Care Handoff Completed per policy Notes Mental Status: alert / awake / arousable Patient Amnestic to Procedure: Yes Nausea / Vomiting: adequately controlled Pain: adequately controlled Airway Patency, RR, SpO2: stable & adequate BP & HR: stable & adequate Hydration State: stable & adequate Anesthetic Complications: no major complications apparent and Pt Satisfied with anesthetic care
[2020-01-13] MEDS ORDERED: KETOROLAC 30 MG/ML VIAL ONE (12:27)
[2020-01-13] MEDS ORDERED: MoRPHine SULFATE 2 MG/ML CARP IV PRN ×2 (13:08)
[2020-01-13] MEDS ORDERED: HYDROCODONE/ACETAMOPHEN 5/325MG TAB PO PRN ×2 (13:08)
[2020-01-13] MEDS ORDERED: IBUPROFEN 600 MG TAB PO PRN (13:08)
[2020-01-13] MEDS ORDERED: PROMETHAZINE HCL 12.5 MG in SODIUM CHLORIDE 0.9% 50 ML IV PRN (13:08)
[2020-01-13] MEDS ORDERED: SODIUM CHLORIDE 0.9% 1000ML 1,000 ML IV SCH (13:30)
--- NOTE | 2020-01-13 14:39 | Hospitalist Consultation ---
Date of Consultation January 13, 2020 Assessment & Plan (1) Breast cancer, right: Identified by mammogram with routine screening Status post core biopsy with positive findings for malignancy POD #0 lumpectomy with sentinel node biopsy with Dr. Stanton today Further management per Dr. 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 We will follow along with you during the course of this hospitalization. Anticipate discharge home tomorrow Please refer to Dr. Molina's addendum for any further recommendations. Supervising Physician Co-Signing Physician Notes I personally saw and examined the patient. I verified all clarke points and agree with ARY Rivas with the following exceptions and/or additions: 74-year-old postop right lumpectomy and sentinel lymph node biopsy. No acute medical issues at this time. O/E HS1+2, no murmurs, Chest CTAB, Abdo SNT A/P Agree with continuation of her usual medication as above. Patient to decide whether to hold her usual triamterene/hydrochlorothiazide in a.m -is for Mnire's disease rather than hypertension. Ok to take is sBP > 100 as discussed with the patient. History of Present Illness Attending Physician: Mike Stanton MD, FACS History of Present Illness Attending: Dr. Molina This is a 74-year-old female that underwent routine breast scan mammography and was found to have architectural distortion at the posterior 11 o'clock position. A core biopsy was completed and showed a low-grade invasive ductal carcinoma. Postprocedure she had no significant problems or hematoma. She presented to Dr. Mike Stanton for second opinion and further evaluation. She denied any breast discharge any nipple discharge, no change in shape or color. She presented today for marifer dissection with Dr. Stanton. Lumpectomy with right sentinel lymph node biopsy was completed and frozen sections were sent. Patient is seen postoperatively in her room. She has minimal pain. She has no shortness of breath or chest pain. She had a little bit of nausea on return from the OR but that is now resolved. She denies any vomiting. She has no fever or chills. She has no recent illness. She just finished lunch and tolerated her meal well. She has no other acute complaints. Past medical history includes Mnire's disease for which she is treated with triamterene/hydrochlorothiazide. She has nonocclusive CAD and is on metoprolol succinate once daily. She has seasonal allergies and is on loratadine. She has no problem with hypertension and no problems with lipidemia. She is however on atorvastatin and her cardiac meds for preventative purposes secondary to her nonocclusive CAD. She does report mitral valve prolapse. She denies being on aspirin or anticoagulation. Most recent cardiac catheterization showed no occlusion of any vessels. She is a former smoker and quit smoking in 2012. She had previous smoked since age 20. No significant ethanol use. Allergies Allergy/AdvReac Type Severity Reaction Status Date / Time aspirin Allergy Mild ITCHING Verified 01/13/20 06:58 Poison Johanny Extract/Poison Allergy Intermediate AIRBORNE Uncoded 01/13/20 06:58 [place] Extra OR CONTACT-WELTS, WEEPING LESIONS Home Medications Home Medications Medication Instructions Recorded Confirmed Type loratadine 10 mg capsule 10 mg PO DAILY PRN cap 01/02/19 01/13/20 History peg 400-propylene glycol 0.4 %-0.3 1 - 2 drops OP DAILY PRN #1 ml 01/02/19 01/13/20 History % eye drops atorvastatin 10 mg tablet 10 mg PO HS #90 tab 03/01/19 01/13/20 Rx metoprolol succinate 25 mg 25 mg PO HS #90 tab 03/01/19 01/13/20 Rx tablet,extended release 24 hr triamterene 37.5 1 tab PO Q2D #45 tab 03/01/19 01/13/20 Rx mg-hydrochlorothiazide 25 mg tablet calcium carbonate 400 mg calcium 400 mg PO DAILY PRN 12/18/19 01/13/20 History (1,000 mg) chewable tablet Patient History Medical History (Updated 01/13/20 @ 14:36 by Kendall Rivas PA-C) Abnormal electrocardiogram T wave inversion in V1-V6; had full cardiac workup including heart cath in 2014 in [place]. Now follows annually with Dr. Camarillo. Denies any chest pain. Abnormal mammogram Allergic rhinitis Angioma Benign nevus of skin Cancer RIGHT BREAST Hearing loss History of bronchitis History of tobacco abuse Left renal mass BENIGN CYSTIC MASS Lentigines Meniere's disease On HCTZ, stable. Mitral valve prolapse Per cardiology 02/28/19, prolapse with minimal MR seen on 2014 echo (done in [place], no echo on file). No murmur noted on exam at [facility]. Seborrheic keratosis Xerosis of skin Surgical History (Updated 01/14/20 @ 07:05 by Mike Stanton MD, FACS) History of cardiac cath Done for abnormal stress test, per cardiology note 02/28/19 no obstructive disease. History of cataract surgery bilateral History of colonoscopy History of tooth extraction Hx of partial nephrectomy left Family History Mother Colon cancer Stroke Brother Cancer Father Hypertension Other Coronary heart disease Social History Smoking Status: Former smoker Smoking End Date: QUIT 2012; Second Hand Exposure: Yes (FAMILY SMOKED/SPOUSE SMOKES); Do You Dip or Chew Tobacco: No; Hx Alcohol Use: Yes Alcohol type: beer and hard liquor Hx Substance Use: No Preferred Language: [place] Verdean Communication Ability: Effective Communication Ability Comment: HARD OF HEARING Visual Impairment: Diminished 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 No significant murmurs. ABDOMEN: Soft, NT, ND, BS Present EXTREMITIES: No LE edema, pedal pulses intact NEURO: A&OX3 Results & Data Results & Data ([facility]) Vital Signs (Past 12 Hours) Vital Signs Temp Pulse Pulse Resp BP Pulse Ox 01/13/20 13:56 36.6 C 64 18 124/75 96 01/13/20 13:35 36.9 C 70 16 119/62 94 01/13/20 13:10 36.9 C 57 L 18 125/77 95 01/13/20 12:30 36.3 C L 58 L 22 127/72 97 01/13/20 12:20 36.3 C L 56 L 15 122/64 98 01/13/20 12:10 59 L 12 127/71 97 01/13/20 12:00 57 L 12 126/71 93 01/13/20 11:50 61 20 140/73 98 01/13/20 11:40 59 L 20 132/64 99 01/13/20 11:34 36.2 C L 64 18 147/71 H 98 01/13/20 07:04 36.5 C 67 20 105/79 97 Laboratory Results 01/08/20 09:09 01/08/20 09:09 Diagnostic Findings No chest x-ray or other diagnostics this admission PG Care Time/CCT Total # of Minutes Spent Total Time Spent with Patient: Total time spent is greater than 50% in c oordination of care (as documented) at patient's floor/unit and/or counseling patient: 30 minutes Coding Level of Care Code 69858 Inpt Consult Level 3 Diagnoses Breast cancer, right C50.911 Non-occlusive coronary artery disease I25.10 Menieres disease H81.09 Laterality: unspecified laterality Mitral valve prolapse I34.1 History of tobacco abuse Z87.891 (1) Menieres disease Laterality: unspecified laterality Qualified Code(s): H81.09 - Meniere's disease, unspecified ear
--- NOTE | 2020-01-13 15:20 | Mammography Report ---
SPECIMEN: 01/13/2020 CLINICAL HISTORY: 74-year-old woman with recently diagnosed right breast invasive ductal carcinoma pr esents at time of lumpectomy including specimen radiography. Preoperative wireless localization with [employer] Electrical Equipment Assembler was performed 01/08/2020. COMPARISON: Comparison is made to exams dated: 01/08/2020 localization, 12/26/2019 breast MRI, 12/10/19 20 ultrasound biopsy, 12/05/2019 ultrasound, 12/05/2019 mammogram, and 11/26/2019 mammogram - [facility]. FINDINGS: A surgical specimen radiograph was performed of the right breast lumpectomy specimen. The tissue specimen includes the ribbon-shaped biopsy marker and [employer] Electrical Equipment Assembler reflector as well as architec tural distortion visualized in the tissue specimen at location FG/1213 on the grid. The findings a re located near the posterior/deep edge of the specimen and this was relayed to the operating surgeon during surgery. Additional posterior/deep tissue was being obtained. IMPRESSION: SPECIMEN Right breast lumpectomy specimen radiograph, as above. Linda Tamez M.D. ay/:01/13/2020 11:06:13 City Solicitor: OR Technologist, [facility]
[2020-01-13] MEDS: CEFAZOLIN 1000MG 1,000 MG/7.5 ML SYR IV SCH (18:27)
[2020-01-13] MEDS ORDERED: ATORVASTATIN 10 MG TAB PO SCH (21:00)
[2020-01-13] MEDS ORDERED: METOPROLOL SUCC 25MG EXT REL TAB PO SCH (21:00)
[2020-01-13] MEDS: ACETAMINOPHEN 325 MG TAB PO PRN (21:09)
[2020-01-14] MEDS: CEFAZOLIN 1000MG 1,000 MG/7.5 ML SYR IV SCH ×3 (02:55→09:47)
[2020-01-14] MEDS: ACETAMINOPHEN 325 MG TAB PO PRN (08:33)
[2020-01-14] MEDS ORDERED: TRIAMTERENE/HCTZ 37.5/25MG TAB PO SCH (09:00)
--- NOTE | 2020-01-14 10:51 | Discharge Summary (DS) ---
PRINCIPAL DIAGNOSIS: Right breast cancer. PROCEDURES: The patient underwent right lumpectomy with sentinel lymph node biopsy. HISTORY OF PRESENT ILLNESS: The patient is a 74-year-old female with biopsy proven right breast cancer for definitive surgery. HOSPITAL COURSE: She was brought in the hospital on 01/13/2020. She was taken to the Operating Room where she underwent right lumpectomy with sentinel node biopsy. She did quite well, has done well overnight, is felt stable for discharge home today, to be followed in the Surgical Clinic within 1 week.
--- NOTE | 2020-01-14 11:24 | Hospitalist Progress Note ---
Date of Service January 14, 2020 Assessment & Plan (1) Breast cancer, right: Identified by mammogram with routine screening Status post core biopsy with positive findings for malignancy POD #1 lumpectomy with sentinel node biopsy with Dr. Stanton today Further management per Dr. Stanton (2) Non-occlusive coronary artery disease: Previous catheterization with no occlusive findings Patient denies use of aspirin per colors custodian instructions Currently on metoprolol succinate daily on discharge No problems with blood pressure or lipidemia per patient report Continue preventative atorvastatin (3) Menieres disease: Well-managed per patient report Continue triamterene/hydrochlorothiazide Monitor and support clinically (4) Mitral valve prolapse: Stable Continue to follow with cardiology as an outpatient No outpatient anticoagulation (5) History of tobacco abuse: Quit smoking in 2012 No desire to resume tobacco use Discussed need for complete abstention Thank you very much for including us in the care of this patient. We will sign off at this time. Please feel free to reconsult as needed Admission and Anticipated Discharge Date Admission Date: January 13, 2020 Subjective Patient is POD #1 from right lumpectomy and sentinel lymph node biopsy Pain is generally controlled No shortness of breath, chest pain, tightness. No fever or chills. No acute complaints Tolerating diet well Review of Systems Review of Systems: All systems reviewed & are unremarkable except as noted in HPI & below Physical Exam Physical Exam: GENERAL : No acute distress EYES: No icterus, gaze conjugate NOSE: No evidence of epistaxis MOUTH: No lesions or candidiasis NECK: Supple. Trachea is midline with no evidence of deviation LUNGS: CTA B/L, no wheezes, rales or rhonchi HEART: Regular, rate controlled CHEST: Dressing dry and intact over the right breast. No paradoxical chest wall movement ABDOMEN: Soft, NT, ND, BS Present EXTREMITIES: No LE edema, pedal pulses intact NEURO: A&OX3 Results & Data Results & Data ([facility]) Vital Signs (Past 12 Hours) Vital Signs Temp Pulse Pulse Pulse Resp BP BP 01/14/20 10:10 36.6 C 61 54 L 57 L 16 115/69 122/76 01/14/20 07:10 36.6 C 54 L 16 122/76 01/14/20 04:00 36.9 C 54 L 14 115/69 01/14/20 02:59 36.5 C 57 L 16 105/66 Pulse Ox 01/14/20 10:10 96 01/14/20 07:10 96 01/14/20 04:00 95 01/14/20 02:59 95 Laboratory Results 01/08/20 09:09 01/08/20 09:09 Diagnostic Findings No new labs or diagnostic imaging PG Care Time/CCT Total # of Minutes Spent Total Time Spent with Patient: Total time spent is greater than 50% in coordination of care (as documented) at patient's floor/unit and/or counseling patient: 20 minutes Coding Level of Care Code 33927 Subseq Hosp Care Lvl 1 Diagnoses Breast cancer, right C50.911 Non-occlusive coronary artery disease I25.10 Menieres disease H81.09 Laterality: unspecified laterality Mitral valve prolapse I34.1 History of tobacco abuse Z87.891 Time Spent (min) 20 (1) Menieres disease Laterality: unspecified laterality Qualified Code(s): H81.09 - Meniere's disease, unspecified ear
== END 2020-01-14 11:47 | disposition home health service (06) ==
LOC: 3W 06:30 → ASU 06:30

== ENCOUNTER 2023-04-13 14:49 | Observation (INO) ==
[2023-04-13 16:27] LABS: Basophils # (auto) 0.03 K/uL (0.00-0.20); Basophils % (auto) 0.5 %; Eosinophils % (auto) 1.7 %; Hematocrit (blood only) 34.3 % (37.0-47.0); Hemoglobin 11.2 g/dl (12.0-16.0); Immature Granulocytes # (auto) 0.01 K/uL (0.01-0.20); Immature Granulocytes % (auto) 0.2 %; Lymphocytes # (auto) 1.15 K/uL (1.20-3.40); Lymphocytes % (auto) 19.7 %; Mean Corpuscular Hemoglobin 30.5 pg (25.0-34.0); Mean Corpuscular Hgb Conc 32.7 g/dL (32.0-36.0); Mean Corpuscular Volume 93.5 fL (80.0-100.0); Mean Platelet Volume 10.9 fL (9.4-12.4); Monocytes # (auto) 0.33 K/uL (0.11-0.59); Monocytes % (auto) 5.7 %; Neutrophils # (auto) 4.21 K/uL (1.40-6.50); Neutrophils % (auto) 72.2 %; Platelet Count 203 K/uL (130-400); RDW Coefficient of Variation 12.5 % (11.5-14.5); RDW Standard Deviation 43.3 fL (36.4-46.3); Red Blood Count 3.67 M/uL (4.20-5.40); White Blood Count 5.83 K/ul (4.8-10.8)
[2023-04-13 16:43] LABS: Albumin Globulin Ratio 1.5 (0.9-2); Albumin Level 3.8 gm/dl (3.4-5.0); BUN Creatinine Ratio 47.7 (10-20); Bilirubin,Total 0.4 mg/dl (0.2-1.0); Calcium 8.6 mg/dl (8.6-10.3); Creatinine Clr Calc Pharmacy 46.8 ml/min; Est GFR (African American) 58.8 ml/min; Est GFR (Non-African American) 50.7 ml/min; Globulin 2.6 gm/dl (2.5-4.0); Potassium 4.8 mmol/L (3.5-5.1); Total Protein 6.4 gm/dl (6.0-8.3)
[2023-04-13 16:49] LABS: Troponin I High Sensitivity 18.1 pg/ml (0-14)
[2023-04-13 17:01] LABS: Partial Thromboplastin Ratio 0.9; Partial Thromboplastin Time 25.3 Seconds (21.0-31.0); Prothrombin Time 10.7 Seconds (9.0-12.0)
--- NOTE | 2023-04-13 18:47 | Emergency Department Note ---
Impression & Plan AUGUST (dyspnea on exertion), Chest pressure, Elevated troponin, Elevated brain natriuretic peptide (BNP) level ED Provider Note ED Provider Note NAME: JESSICA SZYMANSKI AGE:77 SEX: Female : 1945 ARRIVES VIA: Private vehicle INFORMANT: Patient ED PROVIDER(s): Althea Tolliver DO CHIEF COMPLAINT: Dyspnea on exertion, chest pressure, referred by cardiology HPI: This is a 77-year-old female presents the emergency department after being referred here by cardiology due to concern for worsening dyspnea on exertion and accompanying chest pressure. 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 She states her most recent echo showed an ejection fraction of 55% and she follows with Dr. Camarillo regularly. She states over the last 2 months she had noticed some increased lower extremity edema. She was initially started on spironolactone which did not help and then was changed to torsemide which she had taken previously with success. She states the lower extremities did begin to improve and she was losing some weight, however she began to notice increased dyspnea on exertion with an accompanying sense of chest pressure that she describes as "a bubble" in her chest. She states when she saw Dr.'s Camarillo today he sent her for outpatient labs and imaging. She states her troponin was mildly elevated and her BNP was markedly elevated according to his report. He advised her to come to the ER for repeat labs and likely admission for echo and possible cardiac catheterization. She denies any recent illness, fevers or chills. PAST MEDICAL HISTORY:See Below PAST SURGICAL HISTORY:See Below FAMILY HISTORY:See Below SOCIAL HISTORY:See Below HOME MEDICATIONS:See Below ALLERGIES:See Below VITALS:See Below PHYSICAL EXAMINATION: GENERAL: alert, well appearing, well nourished, no distress, non-toxic EYE EXAM: normal conjunctiva, PERRL and EOM's grossly intact OROPHARYNX: no exudate, no erythema, lips, buccal mucosa, and tongue normal and mucous membranes are moist NECK: supple, no nuchal rigidity, no adenopathy, non-tender LUNGS: Clear to auscultation. Normal chest wall mechanics, no w/r/r HEART: no murmurs, S1 normal and S2 normal ABDOMEN: abdomen soft, non-tender, normo-active bowel sounds, no masses, no rebound or guarding. BACK: Back is symmetrical on inspection and there is no deformity, no midline tenderness, no CVA tenderness. SKIN: no rashes, petechiae, orbruising UPPER EXTREMITIES: upper extremities are grossly normal. FROM, nml pulses b/l. LOWER EXTREMITIES: No pitting edema. FROM, nml pulses b/l. NEURO EXAM: Normal sensorium, cranial nerves II-XII grossly intact, normal speech, no facial droop,nogross weakness of arms, no gross weakness of legs. Gross sensation intact. No ataxia. Vital Signs: reviewed and remarkable Differential Diagnosis: pneumonia, bronchitis, COPD/Asthma exacerbation, pneumothorax, pulmonary embolism, congestive heart failure, acute coronary syndrome, as well as others were considered MEDICAL DECISION MAKING: This is a 77-year-old female who presents emergency department after being referred here by cardiology due to concern for dyspnea on exertion and chest discomfort. Patient was afebrile vital signs stable. Labs drawn and sent, IV established, EKG performed at bedside interpreted by me and upon a patient room being available she was placed on telemetry for monitoring. I did review outpatient chest x-ray and KUB patient had done this morning. I also reviewed cardiology note from her office evaluation this morning. Patient's troponin noted to be uptrending from outpatient labs to those on arrival at the ER. Patient is asymptomatic at rest but concerning story for symptoms with exertion. Patient also noted to have an elevated BNP despite use of a diuretic. Given risk factors and prior cardiac history, case discussed with hospitalist for additional evaluation and management. Consultation(s): 1904: Discussed with Dr. Cowart, not in any hospitalist, for additional evaluation and mgmt. ER Treatment Provided: See below Diagnostics Interpreted By Me: -ECG: NSR at 70, leftward axis, normal intervals, nonspecific ST/T wave change -Cardiac Monitoring: An order was placed for continuous cardiac monitoring. The monitor shows a rate of 78 with normal sinus rhythm. -Laboratory studies: As stated above and show below. -Imaging studies: [] Triage Nursing Note Reviewed Prior/Outside Records Reviewed -outpatient chest x-ray and KUB reviewed Past Med/Surg History Medical History Coronary artery calcification Malignant neoplasm of upper-outer quadrant of right breast in female, estrogen receptor positive (12/10/19) History of tobacco abuse History of bronchitis Allergic rhinitis Angioma Benign nevus of skin Lentigines Seborrheic keratosis Xerosis of skin Abnormal electrocardiogram Hearing loss Mitral valve prolapse Meniere's disease Non-occlusive coronary artery disease Left renal mass Surgical History Status post breast lumpectomy History of tooth extraction History of cataract surgery History of colonoscopy History of cardiac cath Hx of partial nephrectomy Family History Mother Colon cancer Stroke Myocardial infarction Brother Cancer Father Hypertension Other Coronary heart disease Denies family history of Ovarian cancer Prostate cancer Breast cancer Lung cancer Social History Smoking Status: Former smoker Tobacco Type: Cigarettes Age Started Using Tobacco: 20; Age Quit Using Tobacco: 58; packs per day: 0.5; Cigarettes Per Day: 10; Second Hand Exposure: No; Do You Dip or Chew Tobacco: No; Hx Alcohol Use: No Hx Substance Use: No Preferred Language: Vincentian Communication Ability: Effective Communication Ability Comment: HARD OF HEARING Visual Impairment: Diminished Hearing Ability: Use of Hearing Aid Tool Die Maker Required: No Beliefs That Will Affect Care: None marital status: marital status details: spouse is paraplegic, housebound Current Living Situation: Spouse Current Living Situation Comment: at home with current occupational status: retired 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 [employer] How many Children do You have: 0 other: vision: nearsighted after cataract surgery, wears reading glasses Feels Safe at Home: Yes Childhood Exposure to Second-Hand Smoke: Yes Diet: low salt caffeine: Yes Dental Care, Regularly: Yes Physical Activity Frequency: Daily Physical Activity Frequency Comment: walks her dog twice daily Seatbelt Use: always Sunscreen Use: Yes Assistive Devices: None Allergies Allergies Allergy/AdvReac Type Severity Reaction Status Date / Time aspirin Allergy Mild ITCHING Verified 04/13/23 20:14 anastrozole Allergy Unknown Verified 04/13/23 20:14 garlic AdvReac Diarrhea Verified 04/13/23 20:34 lactase [From Dairy Aid] AdvReac Diarrhea Verified 04/13/23 20:32 onion AdvReac Diarrhea Verified 04/13/23 20:33 Poison Johanny Extract/Poison Allergy Intermediate AIRBORNE Uncoded 04/13/23 20:14 [place] Extra OR CONTACT-WELTS, WEEPING LESIONS spironolactone AdvReac Intermediate '' wicked Uncoded 04/13/23 20:14 headache" Home Meds Home Medications Medication Instructions Recorded Confirmed peg 400-propylene glycol 0.4 %-0.3 1 - 2 drops ophthalmic (eye) DAILY 01/02/19 04/13/23 % eye drops PRN dry eye(s) #1 mL Lactobacillus 1 cap PO DAILY 11/19/20 04/13/23 acidophilus-Bifidobac.animalis 10 billion cell capsule (Digestive Probiotic) loperamide 2 mg capsule (Imodium 2 mg PO DAILY PRN Diarrhea 02/15/22 04/13/23 A-D) valsartan 40 mg tablet 40 mg PO QAM 04/13/23 04/13/23 Previous Rx's Medication Instructions Recorded atorvastatin 10 mg tablet 10 mg PO HS #90 tabs 06/22/22 metoprolol succinate 50 mg 50 mg PO DAILY #90 tabs 11/04/22 tablet,extended release 24 hr clopidogrel 75 mg tablet 75 mg PO DAILY #90 tabs 03/29/23 potassium chloride 20 mEq 20 meq PO DAILY PRN Days taking 04/05/23 tablet,extended release torsemide #90 tabs torsemide 5 mg tablet 5 mg PO DAILY PRN weight gain #90 04/05/23 tabs Results & Data (ED) Vital Signs Vital Signs - 24 hr 04/13/23 15:07 04/13/23 19:01 04/13/23 19:02 Temperature 36.4 C L Temperature Source Temporal Artery Scan Pulse Rate 77 Pulse Rate [Apical] 67 Respiratory Rate 20 16 Respiratory Effort / Characteristics Non-Labored Spontaneous Non-Labored Spontaneous Respiratory Depth Normal Normal Respiratory Pattern Regular Blood Pressure 163/87 H Blood Pressure [Left Arm] 181/111 H Blood Pressure Mean 112 Blood Pressure Mean [Left Arm] 134 Blood Pressure Position [Left Arm] Semi-fowlers Pulse Oximetry 97 97 97 Oxygen Delivery Method Room Air Room Air Room Air Sepsis Recent Fever Within 48 Hours No Sepsis New/Unexplained Change in Mental Status No Sepsis Action Taken by Nursing No Action Required Laboratory Data 04/14/23 03:29 04/14/23 03:29 Lab Results 04/13/23 Range/Units 15:47 WBC 5.83 (4.8-10.8) K/ul RBC 3.67 L (4.20-5.40) M/uL Hgb 11.2 L (12.0-16.0) g/dl Hct 34.3 L (37.0-47.0) % MCV 93.5 (80.0-100.0) fL MCH 30.5 (25.0-34.0) pg MCHC 32.7 (32.0-36.0) g/dL RDW Std Deviation 43.3 (36.4-46.3) fL RDW Coeff of Valerie 12.5 (11.5-14.5) % Plt Count 203 (130-400) K/uL MPV 10.9 (9.4-12.4) fL Immature Gran % (Auto) 0.2 % Neut % (Auto) 72.2 % Lymph % (Auto) 19.7 % [place] % (Auto) 5.7 % Eos % (Auto) 1.7 % Baso % (Auto) 0.5 % Neut # (Auto) 4.21 (1.40-6.50) K/uL Lymph # (Auto) 1.15 L (1.20-3.40) K/uL [place] # (Auto) 0.33 (0.11-0.59) K/uL Eos # (Auto) 0.10 (0.00-0.50) K/uL Baso # (Auto) 0.03 (0.00-0.20) K/uL Immature Gran # (Auto) 0.01 (0.01-0.20) K/uL PT 10.7 (9.0-12.0) Seconds INR 1.0 (0.9-1.1) APTT 25.3 (21.0-31.0) Seconds PTT Ratio 0.9 Sodium 140 (136-145) mmol/L Potassium 4.8 (3.5-5.1) mmol/L Chloride 111 H (98-107) mmol/L Carbon Dioxide 23 (21-32) mmol/L Anion Gap 6 (3-11) BUN 51 H (6-23) mg/dl Creatinine 1.07 (0.6-1.2) mg/dl Est Cr Clr Drug Dosing 46.8 ml/min Est GFR ( Amer) 58.8 ml/min Est GFR (Non-Af Amer) 50.7 ml/min BUN/Creatinine Ratio 47.7 H (10-20) Glucose 92 (70-99(Fasting)) mg/dl Calcium 8.6 (8.6-10.3) mg/dl Total Bilirubin 0.4 (0.2-1.0) mg/dl AST 18 (13-39) U/L ALT 17 (7-52) U/L Alkaline Phosphatase 58 (34-104) U/L Troponin I High Sens 18.1 H (0-14) pg/ml Total Protein 6.4 (6.0-8.3) gm/dl Albumin 3.8 (3.4-5.0) gm/dl Globulin 2.6 (2.5-4.0) gm/dl Albumin/Globulin Ratio 1.5 (0.9-2) TSH 1.914 (0.300-4.500) uIu/ml Administered Medications Discontinued Medications Atorvastatin Calcium (Atorvastatin 10 Mg Tab) 10 mg PO HS ABHINAV Stop: 05/13/23 21:54 Last Admin: 04/13/23 22:23 Dose: Not Given Documented By: LCD Clopidogrel Bisulfate (Clopidogrel Bisulfate 75 Mg Tab) 75 mg PO DAILY ABHINAV Stop: 05/14/23 08:59 Last Admin: 04/14/23 08:43 Dose: Not Given Documented By: QGV Fentanyl Citrate (Fentanyl Citrate Pf 100 Mcg/2 Ml Vial) Confirm Administered Dose 100 mcg .ROUTE .STK-MED ONE Stop: 04/14/23 13:17 Last Admin: 04/14/23 13:39 Dose: 25 mcg Documented By: GURWINDER Furosemide (Furosemide 40 Mg/4 Ml Vial) 40 mg IV QAM ABHINAV Stop: 05/14/23 08:59 Last Admin: 04/14/23 08:33 Dose: 40 mg Documented By: QGV Heparin Sodium (Porcine) (Heparin (Porcine) 1000 Unit/Ml 10 Ml (Fur Mixer Operator Use Only)) Confirm Administered Dose 10,000 units .ROUTE .STK-MED ONE Stop: 04/14/23 13:16 Last Admin: 04/14/23 13:39 Dose: 5,000 units Documented By: CWK Heparin Sodium/Sodium Chloride (Heparin In Nss Infusion 1000 Unit/500 Ml (2 U/Ml) Bag) Confirm Administered Dose 3,000 units IV .STK-MED ONE Stop: 04/14/23 13:17 Last Admin: 04/14/23 13:39 Dose: 3,000 units Documented By: NERY Ioversol (Optiray 350) Confirm Administered Dose 1 ml .ROUTE .STK-MED ONE Stop: 04/14/23 13:22 Last Admin: 04/14/23 13:40 Dose: 25 ml Documented By: NERY Metoprolol Succinate (Metoprolol Succ 50mg Ext Rel Tab) 50 mg PO DAILY ABHINAV Stop: 05/14/23 08:59 Last Admin: 04/14/23 08:42 Dose: Not Given Documented By: QGV Midazolam HCl (Midazolam Hcl 1 Mg/Ml 2ml Vial) Confirm Administered Dose 2 mg .ROUTE .STK-MED ONE Stop: 04/14/23 13:16 Last Admin: 04/14/23 13:39 Dose: 1 mg Documented By: GURWINDER Nicardipine HCl (Nicardipine Hcl Inj 2.5 Mg/Ml 10 Ml Amp) Confirm Administered Dose 25 mg .ROUTE .STK-MED ONE Stop: 04/14/23 13:17 Last Admin: 04/14/23 13:39 Dose: 25 mg Documented By: NERY Nitroglycerin/Dextrose (Nitroglycerin/D5w 100mcg/Ml 20ml Syr) Confirm Administered Dose 2,000 mcg .ROUTE .STK-MED ONE Stop: 04/14/23 13:17 Last Admin: 04/14/23 13:39 Dose: 2,000 mcg Documented By: NERY Pantoprazole Sodium (Pantoprazole 40 Mg Tab) 40 mg PO DAILY ABHINAV Stop: 05/14/23 08:59 Last Admin: 04/14/23 08:42 Dose: 40 mg Documented By: QGV Valsartan (Valsartan 80 Mg Tab) 40 mg PO DAILY ABHINAV Stop: 05/14/23 08:59 Last Admin: 04/14/23 08:33 Dose: 40 mg Documented By: QGV Discharge Plan Visit Data Chief Complaint: Cardiac Assessment Stated Complaint: SOB DURIING EXERTION ABNORMAL LABS ED Provider: Althea Tolliver Discharge Problem: AUGUST (dyspnea on exertion), Chest pressure, Elevated troponin, Elevated brain natriuretic peptide (BNP) level Patient Disposition: Admitted As Inpatient Discharge Instructions Interventions: ED Discharge Assessment Last Done: 04/14/23 12:45
--- NOTE | 2023-04-13 20:07 | History & Physical Report ---
Date of Service April 13, 2023 Assessment & Plan (1) AUGUST (dyspnea on exertion): Plan: 77 year old female admitted for dyspnea on exertion. AUGUST: -Increased AUGUST over the past few weeks with increasing weight gain. -CXR clear, KUB negative for any hiatal hernia. -BNP elevated at 809, troponin mildly elevated at 15, repeat 18. -Blood work otherwise unremarkable. -EKG chronically abnormal, no changes on today's EKG, no acute ST abnormalities. -Will obtain repeat echocardiogram to check for cardiomyopathy or wall motion abnormality. -Will hold torsemide and place on IV Lasix 40mg in the AM for fluid overload. -Consulted cardiology, will appreciate recs. -Will keep NPO if cath needed. -Admit to tele (2) Elevated brain natriuretic peptide (BNP) level: Plan: Same plan as above. (3) Hypertension: Plan: -Patient's blood pressure usually 100's systolic per patient but has been more variable recently. -BP elevated in the ER up to 180's systolic. -Continue home blood pressure medications. (4) Chronic diarrhea: Plan: -Chronic, noted, can add loperamide from home if needed. (5) Malignant neoplasm of upper-outer quadrant of right breast in female, estrogen receptor positive: Plan: -Noted. Plan F/E/N/GI: NPO DVT: SCD Code: full code, patient has living will she will check with her Dispo: Telemetry History of Present Illness Chief Complaint: Dyspnea on exertion Primary Care Provider: Jacob Victoria DO Carol is a 77 year old female with PmHx cardiomyopathy, non occlusive coronary artery disease, HTN, abnormal EKG, chronic diarrhea, breast cancer coming in at the direction of cardiology after concerning lab work and symptoms. Patient states that over the past 2 weeks she's had increased dyspnea on exertion with walking distances across the room. The dyspnea has been mild for her. She's also had increased water weight over this time frame as well and states that she was placed on spironolactone however experienced bad headaches from this. She was then switched to torsemide and states that she lost 3-4 pounds while on the torsemide. Her base weight is 162lbs and she was up to 170lbs at the height. She says she feels like a bubble is present at times due to also having a lot of burping associated with this. She denies any chest pain, fevers, chills, recent illness or sickness. Patient had blood work which showed a troponin of 15.4, repeat in the ER 18.1, a BNP of 809, otherwise unremarkable. KUB from earlier today showed nonobstructive bowel gas pattern, no evidence of hiatal hernia. CXR without acute process. Allergies Allergy/AdvReac Type Severity Reaction Status Date / Time aspirin Allergy Mild ITCHING Verified 04/13/23 20:14 anastrozole Allergy Unknown Verified 04/13/23 20:14 garlic AdvReac Diarrhea Verified 04/13/23 20:34 lactase [From Dairy Aid] AdvReac Diarrhea Verified 04/13/23 20:32 onion AdvReac Diarrhea Verified 04/13/23 20:33 Poison Johanny Extract/Poison Allergy Intermediate AIRBORNE Uncoded 04/13/23 20:14 [place] Extra OR CONTACT-WELTS, WEEPING LESIONS spironolactone AdvReac Intermediate '' wicked Uncoded 04/13/23 20:14 headache" Home Medications Medication Instructions Recorded Confirmed Type peg 400-propylene glycol 0.4 %-0.3 1 - 2 drops ophthalmic (eye) DAILY 01/02/19 04/13/23 History % eye drops PRN dry eye(s) #1 mL Lactobacillus 1 cap PO DAILY 11/19/20 04/13/23 History acidophilus-Bifidobac.animalis 10 billion cell capsule (Digestive Probiotic) loperamide 2 mg capsule (Imodium 2 mg PO DAILY PRN Diarrhea 02/15/22 04/13/23 History A-D) atorvastatin 10 mg tablet 10 mg PO HS #90 tabs 06/22/22 04/13/23 Rx metoprolol succinate 50 mg 50 mg PO DAILY #90 tabs 11/04/22 04/13/23 Rx tablet,extended release 24 hr clopidogrel 75 mg tablet 75 mg PO DAILY #90 tabs 03/29/23 04/13/23 Rx potassium chloride 20 mEq 20 meq PO DAILY PRN Days taking 04/05/23 04/13/23 Rx tablet,extended release torsemide #90 tabs torsemide 5 mg tablet 5 mg PO DAILY PRN weight gain #90 04/05/23 04/13/23 Rx tabs valsartan 40 mg tablet 40 mg PO QAM 04/13/23 04/13/23 History Past Med/Surg History Medical History Coronary artery calcification Malignant neoplasm of upper-outer quadrant of right breast in female, estrogen receptor positive (12/10/19) History of tobacco abuse History of bronchitis Allergic rhinitis Angioma Benign nevus of skin Lentigines Seborrheic keratosis Xerosis of skin Abnormal electrocardiogram Hearing loss Mitral valve prolapse Meniere's disease Non-occlusive coronary artery disease Left renal mass Surgical History Status post breast lumpectomy History of tooth extraction History of cataract surgery History of colonoscopy History of cardiac cath Hx of partial nephrectomy Family History Mother Colon cancer Stroke Myocardial infarction Brother Cancer Father Hypertension Other Coronary heart disease Denies family history of Ovarian cancer Prostate cancer Breast cancer Lung cancer Social History Smoking Status: Former smoker Tobacco Type: Cigarettes Age Started Using Tobacco: 20; Age Quit Using Tobacco: 58; packs per day: 0.5; Cigarettes Per Day: 10; Second Hand Exposure: No; Do You Dip or Chew Tobacco: No; Tobacco Cessation Education Requested by Patient: No Hx Alcohol Use: No Hx Substance Use: No Preferred Language: Turkmen Communication Ability: Effective Communication Ability Comment: HARD OF HEARING Visual Impairment: Diminished Hearing Ability: Use of Hearing Aid [facility] Required: No Beliefs That Will Affect Care: None marital status: marital status details: spouse is paraplegic, housebound Current Living Situation: Spouse Current Living Situation Comment: at home with current occupational status: retired 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 Physical Exam Constitutional: WD/WN, vitals as above Eyes: PERRL, conjunctivae normal, anicteric sclerae Respiratory: normal respiratory effort, lungs clear to auscultation Cardiovascular: Rate/Rhythm: regular rate and regular rhythm Heart Sounds: normal S1 and normal S2 No pitting edema, trace swelling. Gastrointestinal (Abdomen): normal bowel sounds, soft, nontender, no hepatosplenomegaly Skin: no rashes, warm and dry Psychiatric: A+Ox3, euthymic affect Results & Data Results & Data Vital Signs (Past 12 Hours) Vital Signs Temp Pulse Pulse Resp BP BP Pulse Ox 04/13/23 19:21 81 04/13/23 19:02 67 16 181/111 H 97 04/13/23 19:01 97 04/13/23 15:07 36.4 C L 77 20 163/87 H 97 O2 Del Method 04/13/23 19:21 04/13/23 19:02 Room Air 04/13/23 19:01 Room Air 04/13/23 15:07 Room Air Code Status & VTE Plan VTE Prophylaxis Plan VTE Prophylaxis will be ordered: Yes Supervising Physician Co-Signing Physician Notes Patient seen and examined, chart reviewed, case discussed with Dr. Patrick and I agree with the assessment and plan as above. In brief, patient is a pleasant 77yo female with remote history of cardiomyopathy with decreased EF secondary to aromatase inhibitor use (anastrozole), non-obstructive CAD, HTN presenting at the request of cardiology for 2 weeks of progressive AUGUST and edema. Patient has be given outpatient diuretics - first spironolactone/HCTZ w hich was discontinued due to headache and most recently on Torsemide. Also with complaint of a "bubble" in her lower retrosternal region. Patient was seen by Cardiology - a troponin was obtained outpatient and found to be mildly elevated at 15.4 as well as elevation of BNP to 809. In the ER she is afebrile, HD stable. She does report a progressive increase in her blood pressure at home as well Gen - nontoxic in appearance Skin -warm, dry, intact, no rashes/lesions HEENT - NC/AT, PERRL, MMM, No JVD Heart - +S1/S2, regular, no m/r/g Lungs - CTA, no rales/rhonchi/wheezes Abd - +BS, soft, mild epigastric tenderness Labs and images reviewed. Significant for mild normochromic/normocytic anemia with Hgb=11.2 BUN elevated at 51 Trop=18.1 UA with 3+ blood, 2+ bacteria EKG reviewed and compared with prior studies. Frequent ectopy, trigeminy pattern, left axis deviation, no acute ischemic changes Assessment/Plan -Observation to medical with telemetry -Trend troponin -Check 2D echo -Cardiology consultation appreciated -Will check FOBT given anemia, elevated BUN and complaint of a "bubble" Initiate treatment with Protonix 40mg po daily empiric Remainder of plan as abovew Resident Activity Tracking Resident Involvement: Resident Care Provided Care Provided: Adult Hospital Medicine
[2023-04-13 20:39] LABS: Thyroid Stimulating Hormone 1.914 uIu/ml (0.300-4.500)
[2023-04-13] MEDS ORDERED: POTASSIUM CHLORIDE CRTAB 20 MEQ TABCR PO PRN (21:55)
[2023-04-13] MEDS ORDERED: ATORVASTATIN 10 MG TAB PO SCH (21:55)
[2023-04-13] MEDS ORDERED: POLYETHYLENE (MIRALAX) 17 GM PACK PO PRN (21:55)
[2023-04-13] MEDS ORDERED: ACETAMINOPHEN 325 MG TAB PO PRN (21:55)
[2023-04-13] MEDS ORDERED: ONDANSETRON INJ 2 MG/ML 2 ML VIAL IV PRN (21:55)
[2023-04-13 22:11] LABS: Appearance Urine Clear (Clear); Bacteria Urine Automated 2+ (Negative); Bilirubin Urine Negative (Negative); Blood Urine 3+ (Negative); Color Urine Yellow; Glucose Urine UA Negative (Negative); Ketones Urine Negative (Negative); Leukocyte Esterase Urine Negative (Negative); Nitrite Urine Negative (Negative); Protein Urine 2+ (Negative); Specific Gravity Urine 1.015 (1.000-1.030); Urobilinogen Urine Negative (Negative)
[2023-04-13 22:34] LABS: Adenovirus PCR Not Detected (NotDetected); Bordetella parapertussis PCR Not Detected (NotDetected); Bordetella pertussis PCR Not Detected (NotDetected); Chlamydia pneumoniae PCR Not Detected (NotDetected); Coronavirus 229E PCR Not Detected (NotDetected); Coronavirus CoV-2 (COVID19)PCR Not Detected (NotDetected); Coronavirus HKU1 PCR Not Detected (NotDetected); Coronavirus NL63 PCR Not Detected (NotDetected); Coronavirus OC43PCR Not Detected (NotDetected); Human Metapneumovirus PCR Not Detected (NotDetected); Influenza A PCR Not Detected (NotDetected); Influenza B PCR Not Detected (NotDetected); Mycoplasma pneumoniae PCR Not Detected (NotDetected); Parainfluenza Virus 1 PCR Not Detected (NotDetected); Parainfluenza Virus 2 PCR Not Detected (NotDetected); Parainfluenza Virus 3 PCR Not Detected (NotDetected); Parainfluenza Virus 4 PCR Not Detected (NotDetected); Respiratory Syncytial VirusPCR Not Detected (NotDetected); Rhinovirus/Enterovirus PCR Not Detected (NotDetected)
--- NOTE | 2023-04-14 00:16 | Billing Data ---
Date of Service April 13, 2023 Coding Level of Care Code 55182 INT INP/OBS CARE
[2023-04-14 03:58] LABS: Basophils # (auto) 0.03 K/uL (0.00-0.20); Basophils % (auto) 0.5 %; Eosinophils # (auto) 0.09 K/uL (0.00-0.50); Eosinophils % (auto) 1.6 %; Hematocrit (blood only) 31.5 % (37.0-47.0); Hemoglobin 10.7 g/dl (12.0-16.0); Immature Granulocytes # (auto) 0.01 K/uL (0.01-0.20); Immature Granulocytes % (auto) 0.2 %; Lymphocytes # (auto) 1.03 K/uL (1.20-3.40); Lymphocytes % (auto) 18.4 %; Mean Corpuscular Volume 91.3 fL (80.0-100.0); Mean Platelet Volume 10.7 fL (9.4-12.4); Monocytes # (auto) 0.41 K/uL (0.11-0.59); Monocytes % (auto) 7.3 %; Neutrophils # (auto) 4.02 K/uL (1.40-6.50); Platelet Count 171 K/uL (130-400); RDW Coefficient of Variation 12.5 % (11.5-14.5); RDW Standard Deviation 41.7 fL (36.4-46.3); Red Blood Count 3.45 M/uL (4.20-5.40); White Blood Count 5.59 K/ul (4.8-10.8)
[2023-04-14 04:15] LABS: Albumin Level 3.3 gm/dl (3.4-5.0); BUN Creatinine Ratio 49.4 (10-20); Calcium 8.2 mg/dl (8.6-10.3); Creatinine Clr Calc Pharmacy 56.4 ml/min; Est GFR (African American) 75.5 ml/min; Est GFR (Non-African American) 65.2 ml/min; Phosphorus 3.9 mg/dl (2.5-4.9); Potassium 4.5 mmol/L (3.5-5.1)
[2023-04-14 04:34] LABS: Troponin I High Sensitivity 63.4 pg/ml (0-14)
--- NOTE | 2023-04-14 06:48 | Hospitalist Progress Note ---
Date of Service April 14, 2023 Assessment & Plan (1) AUGUST (dyspnea on exertion): Plan: 77 year old female admitted for dyspnea on exertion. Patient is having no urinary tract symptoms AUGUST: -Increased AUGUST over the past few weeks with increasing weight gain. -CXR clear, KUB negative for any hiatal hernia. -BNP elevated at 809, troponin mildly elevated at 15, repeat 18 --> 60-65 -Blood work otherwise unremarkable. -EKG chronically abnormal, no changes on today's EKG, no acute ST abnormalities. -Will obtain repeat echocardiogram to check for cardiomyopathy or wall motion abnormality. -Will hold torsemide and place on IV Lasix 40mg in the AM for fluid overload. -Consulted cardiology, will appreciate recs. recommending heart cath - UA: blood 3+, bacteria 2+, Ur Cx pending - Elect: HCO3 19, -Will keep NPO if cath needed. -Admit to tele (2) Elevated brain natriuretic peptide (BNP) level: Plan: Same plan as above. (3) Hypertension: Plan: -Patient's blood pressure usually 100's systolic per patient but has been more variable recently. -BP elevated in the ER up to 180's systolic. -Continue home blood pressure medications. (4) Chronic diarrhea: Plan: -Chronic, noted, can add loperamide from home if needed. (5) Malignant neoplasm of upper-outer quadrant of right breast in female, estrogen receptor positive: Plan: -Noted. Plan F/E/N/GI: NPO DVT: SCD Code: full code, patient has living will she will check with her Dispo: Telemetry Admission and Anticipated Discharge Date Admission Date: April 13, 2023 Review of Systems Constitutional: + fatigue and + anorexia; no fever, no c hills and no body aches Ear, Nose, Mouth, Throat: + post nasal drip (increased and at nigh t) Respiratory: + dyspnea on exertion; no cough and no c hest congestion Cardiovascular: no chest pain and no palpitations Gastrointestinal: + belching, + change in stools and + beryl rrhea/loose stools (1 episode on Mon); no nausea and no vomiting Genitourinary: + urinary frequency (baseline due to tor semide); no dysuria and no flank pain Physical Exam Constitutional: WD/WN, vitals as above Respiratory: normal respiratory effort, lungs clear to auscultation Cardiovascular: Extremities: + pedal edema (mild edema b/l in calves) Gastrointestinal (Abdomen): normal bowel sounds, soft, nontender, no hepatosplenomegaly Results & Data Results & Data Vital Signs (Past 12 Hours) Vital Signs Pulse Pulse Resp BP BP Pulse Ox Pulse Ox 04/14/23 06:00 69 134/74 95 04/14/23 02:30 72 19 165/89 H 93 04/14/23 02:00 69 16 172/88 H 93 04/14/23 01:30 69 18 177/83 H 97 04/14/23 01:00 73 16 153/76 H 93 04/14/23 00:30 72 20 153/80 H 94 04/14/23 00:00 69 20 158/82 H 95 04/13/23 23:30 69 17 156/80 H 96 04/13/23 23:00 66 04/13/23 23:00 74 22 148/75 H 94 04/13/23 23:00 96 04/13/23 23:00 96 04/13/23 22:00 70 20 172/104 H 97 04/13/23 20:30 79 25 H 172/134 H 93 04/13/23 19:30 67 15 198/93 H 95 04/13/23 19:21 81 04/13/23 19:02 67 16 181/111 H 97 04/13/23 19:01 97 O2 Del Method O2 Del Method 04/14/23 06:00 Room Air 04/14/23 02:30 Room Air 04/14/23 02:00 Room Air 04/14/23 01:30 Room Air 04/14/23 01:00 Room Air 04/14/23 00:30 Room Air 04/14/23 00:00 Room Air 04/13/23 23:30 Room Air 04/13/23 23:00 04/13/23 23:00 Room Air 04/13/23 23:00 Room Air 04/13/23 23:00 Room Air 04/13/23 22:00 Room Air 04/13/23 20:30 04/13/23 19:30 04/13/23 19:21 04/13/23 19:02 Room Air 04/13/23 19:01 Room Air Resident Activity Tracking Resident Involvement: Resident Care Provided Care Provided: Adult Hospital Medicine
[2023-04-14] MEDS ORDERED: VALSARTAN 80 MG TAB PO SCH (09:00)
[2023-04-14] MEDS ORDERED: FUROSEMIDE 40 MG/4 ML VIAL IV SCH (09:00)
[2023-04-14] MEDS ORDERED: METOPROLOL SUCC 50MG EXT REL TAB PO SCH (09:00)
[2023-04-14] MEDS ORDERED: PANTOprazole 40 MG TAB PO SCH (09:00)
[2023-04-14] MEDS ORDERED: CLOPIDOGREL BISULFATE 75 MG TAB PO SCH (09:00)
--- NOTE | 2023-04-14 09:25 | Cardiology Consultation ---
Date of Consultation April 14, 2023 Assessment & Plan (1) (HFpEF) heart failure with preserved ejection fraction: (2) Hypertension: (3) Coronary artery disease: Plan Pt is a 77 yo female with a past med hx of heart failure, hx cardiomyopathy following with Dr. Camarillo, HTN, and CAD that presents to the hospital on 04/13 for AUGUST and lower extremity edema. Due to recurrence of symptoms in September and November of exertional SOB, will plan to do catheterization to evaluate for progression of CAD as a cause of her symptoms. With fairly unremarkable stress echo in September 2022 with same symptoms at that time, not sure we will see much progression but symptoms are still concerning, so will evaluate further. HFpEF - stress echo 09/2022 showed EF 55-60%, hx HFmrEF with 04/2020 echo showing EF 40-45% - BNP elevated 900 in setting of progressive AUGUST and edema - echo done this admission showed EF 50-55%, report pending - pt appears nearly euvolemic today and appears to have maybe had recent [place] based on GFR 50 yesterday with baseline seemingly in 70-80s, so diurese carefully - pt should continue lasix or other diuretic po prn for edema or increasing weight changes when outpatient - consider transition to po lasix, continue to monitor I&Os and kidney function daily Hypertension - continue home metoprolol and valsartan CAD - continue home atorvastatin - continue home plavix Supervising Physician Co-Signing Physician Notes I saw examined the patient with Dr. Khan and agree with the documentation above. Briefly, the patient has suffered from progressive shortness of breath and some mild lower extremity edema. She had similar symptoms earlier in this year and underwent noninvasive cardiovascular testing. This was normal and did not reveal any evidence of ischemic heart disease. Repeat echocardiogram today revealed preserved LV systolic function. However, based on the recurrent and significant nature of her symptoms she was advised to undergo an invasive evaluation which was performed this afternoon. This revealed mild disease in the left anterior descending, but no obstructive coronary disease. Left ventricular filling pressures were also normal or low. This speaks against decompensated heart failure. She did undergo diuresis recently which may have resulted in improved symptoms. Any continued symptoms however would not be cardiac in nature. Once hemostasis has been achieved at her radial access site she could be discharged from our standpoint. She should continue her usual outpatient me dications and use her diuretic sparingly. Alternate etiologies for her symptoms can be explored. History of Present Illness Reason for Consultation: Dyspnea on exertion Requesting Physician: Dr. Celina DO Attending Physician: Seth Jacobson MD History of Present Illness Pt is a 77 yo female with a past med hx of heart failure, hx cardiomyopathy following with Dr. Camarillo, HTN, and CAD that presents to the hospital on 04/13 for AUGUST and lower extremity edema. Pt states that she started noticing progressive shortness of breath, edema, and weight gain since March 27. She states that from March 27 on she noticed about a 1 lbs a day weight gain that did plateau for awhile before last week noticing again a 1 lbs per day gain. She states she also noticed asymmetric lower extremity edema that had been worse in her R foot and ankle starting on 03/26. She states that she noticed her R foot get a red rash and some small red spots as well that has since gone away. No calf pain at any point and swelling limited to the ankle. L foot and ankle swelled but less than the R. She denies fever or chills at any point. She states that she had been taking spironolactone daily. She also notes getting progressive shortness of breath on exertion which she first noticed mostly at the end of a long walk but before Thanksgi it had gotten to the point that making her bed made her SOB. No SOB at rest. She states that she talked to her doctor the day before Thanksgiving about the swelling and about the AUGUST and that they prescribed her torsemide and when she saw her doctor again yesterday they advised she come in. She notes that she use to restrict her sodium intake to 500 mg a day, but interestingly in 2020 after some bowel issues she started on a FODMAP diet and since then has been increasing her salt intake as she has less foods to choose from. She uses a fitness tomas to track her meals and states that nowadays she has been averaging 2659-4827 mg sodium a day. Today, she states that her swelling has gotten much much better and she is feeling well. She even inquired about when she may be able to go home, hoping she could go today since she feels well. She notes she thinks her baseline weight is about 162 lbs and that she has only had edema one other time due to a medication in her life, so the edema and SOB worried her. She states she was sent yesterday by Dr. Camarillo. Had similar episode in November that resolved after some time. She complains a lot of burping for the last few weeks that is still present today. Allergies Allergy/AdvReac Type Severity Reaction Status Date / Time aspirin Allergy Mild ITCHING Verified 04/13/23 20:14 anastrozole Allergy Unknown Verified 04/13/23 20:14 garlic AdvReac Diarrhea Verified 04/13/23 20:34 lactase [From Dairy Aid] AdvReac Diarrhea Verified 04/13/23 20:32 onion AdvReac Diarrhea Verified 04/13/23 20:33 Poison Johanny Extract/Poison Allergy Intermediate AIRBORNE Uncoded 04/13/23 20:14 [place]ia Extra OR CONTACT-WELTS, WEEPING LESIONS spironolactone AdvReac Intermediate '' wicked Uncoded 04/13/23 20:14 headache" Home Medications Medication Instructions Recorded Confirmed Type peg 400-propylene glycol 0.4 %-0.3 1 - 2 drops ophthalmic (eye) DAILY 01/02/19 04/13/23 History % eye drops PRN dry eye(s) #1 mL Lactobacillus 1 cap PO DAILY 11/19/20 04/13/23 History acidophilus-Bifidobac.animalis 10 billion cell capsule (Digestive Probiotic) loperamide 2 mg capsule (Imodium 2 mg PO DAILY PRN Diarrhea 02/15/22 04/13/23 History A-D) atorvastatin 10 mg tablet 10 mg PO HS #90 tabs 06/22/22 04/13/23 Rx metoprolol succinate 50 mg 50 mg PO DAILY #90 tabs 11/04/22 04/13/23 Rx tablet,extended release 24 hr clopidogrel 75 mg tablet 75 mg PO DAILY #90 tabs 03/29/23 04/13/23 Rx potassium chloride 20 mEq 20 meq PO DAILY PRN Days taking 04/05/23 04/13/23 Rx tablet,extended release torsemide #90 tabs torsemide 5 mg tablet 5 mg PO DAILY PRN weight gain #90 04/05/23 04/13/23 Rx tabs valsartan 40 mg tablet 40 mg PO QAM 04/13/23 04/13/23 History Patient History Medical History Coronary artery calcification Malignant neoplasm of upper-outer quadrant of right breast in female, estrogen receptor positive (12/10/19) History of tobacco abuse History of bronchitis Allergic rhinitis Angioma Benign nevus of skin Lentigines Seborrheic keratosis Xerosis of skin Abnormal electrocardiogram Hearing loss Mitral valve prolapse Meniere's disease Non-occlusive coronary artery disease Left renal mass Surgical History Status post breast lumpectomy History of tooth extraction History of cataract surgery History of colonoscopy History of cardiac cath Hx of partial nephrectomy Family History Mother Colon cancer Stroke Myocardial infarction Brother Cancer Father Hypertension Other Coronary heart disease Denies family history of Ovarian cancer Prostate cancer Breast cancer Lung cancer Social History Smoking Status: Former smoker Tobacco Type: Cigarettes Age Started Using Tobacco: 20; Age Quit Using Tobacco: 58; packs per day: 0.5; Cigarettes Per Day: 10; Second Hand Exposure: No; Do You Dip or Chew Tobacco: No; Hx Alcohol Use: No Hx Substance Use: No Preferred Language: [place] Islander Communication Ability: Effective Communication Ability Comment: HARD OF HEARING Visual Impairment: Diminished Hearing Ability: Use of Hearing Aid Vegetable Grader Required: No Beliefs That Will Affect Care: None marital status: marital status details: spouse is paraplegic, housebound Current Living Situation: Spouse Current Living Situation Comment: at home with current occupational status: retired 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 [employer] How many Children do You have: 0 other: vision: nearsighted after cataract surgery, wears reading glasses Feels Safe at Home: Yes Childhood Exposure to Second-Hand Smoke: Yes Diet: low salt caffeine: Yes Dental Care, Regularly: Yes Physical Activity Frequency: Daily Physical Activity Frequency Comment: walks her dog twice daily Seatbelt Use: always Sunscreen Use: Yes Assistive Devices: None Review of Systems Review of Systems: Constitutional: denies fever, chills, Cardio: denies chest pain, palpitations Resp: denies shortness of breath, Physical Exam Physical Exam: General:Alert and oriented, no acute distress, HEENT: Normocephalic, moist oral mucosa, Cardio: Regular rate and rhythm, no murmur, Resp:Lungs clear to auscultation b/l, no wheezes or rhonchi, Skin: Warm, pink, dry, Ext: No calf tenderness bilaterally, minimal peripheral edema below ankles Psych: Mood-affect congruence. Results & Data Vital Signs (Past 12 Hours) Vital Signs Pulse Pulse Resp BP BP Pulse Ox Pulse Ox 04/14/23 07:04 70 04/14/23 07:00 149/78 H 04/14/23 07:00 73 23 95 04/14/23 06:00 69 134/74 95 04/14/23 02:30 72 19 165/89 H 93 04/14/23 02:00 69 16 172/88 H 93 04/14/23 01:30 69 18 177/83 H 97 04/14/23 01:00 73 16 153/76 H 93 04/14/23 00:30 72 20 153/80 H 94 04/14/23 00:00 69 20 158/82 H 95 04/13/23 23:30 69 17 156/80 H 96 04/13/23 23:00 66 04/13/23 23:00 74 22 148/75 H 94 04/13/23 23:00 96 04/13/23 23:00 96 04/13/23 22:00 70 20 172/104 H 97 O2 Del Method O2 Del Method 04/14/23 07:04 04/14/23 07:00 04/14/23 07:00 04/14/23 06:00 Room Air 04/14/23 02:30 Room Air 04/14/23 02:00 Room Air 04/14/23 01:30 Room Air 04/14/23 01:00 Room Air 04/14/23 00:30 Room Air 04/14/23 00:00 Room Air 04/13/23 23:30 Room Air 04/13/23 23:00 04/13/23 23:00 Room Air 04/13/23 23:00 Room Air 04/13/23 23:00 Room Air 04/13/23 22:00 Room Air Laboratory Results Abnormal Lab Results 04/13/23 04/13/23 04/13/23 15:47 20:27 21:50 WBC RBC Hgb Hct MCV MCH MCHC RDW Std Deviation RDW Coeff of Valerie Plt Count MPV Immature Gran % (Auto) Neut % (Auto) Lymph % (Auto) [place] % (Auto) Eos % (Auto) Baso % (Auto) Neut # (Auto) Lymph # (Auto) [place] # (Auto) Eos # (Auto) Baso # (Auto) Immature Gran # (Auto) Sodium Potassium Chloride Carbon Dioxide Anion Gap BUN Creatinine Est Cr Clr Drug Dosing Est GFR ( Amer) Est GFR (Non-Af Amer) BUN/Creatinine Ratio Glucose Calcium Phosphorus Troponin I High Sens Albumin TSH 1.914 Urine Color Yellow Urine Appearance Clear Urine pH 5.0 Ur Specific Evans 1.015 Urine Protein 2+ H Urine Glucose (UA) Negative Urine Ketones Negative Urine Blood 3+ H Urine Nitrite Negative Urine Bilirubin Negative Urine Urobilinogen Negative Ur Leukocyte Esterase Negative Urine WBC (Auto) 1-5 Urine RBC (Auto) 5-10 H U Hyaline Cast (Auto) 1-5 U Epithel Cells (Auto) 10-20 H Urine Bacteria (Auto) 2+ H Adenovirus (PCR) Not Detected B. pertussis DNA (PCR) Not Detected B.parapertussis DNA PCR Not Detected C. pneumoniae DNA (PCR) Not Detected Coronavirus OC43 (PCR) Not Detected Coronavirus HKU1 (PCR) Not Detected Coronavirus 229E (PCR) Not Detected SARS-CoV-2 (PCR) Not Detected Coronavirus NL63 (PCR) Not Detected Human Metapneumovir PCR Not Detected Influenza Type A (PCR) Not Detected Influenza Type B (PCR) Not Detected M. pneumoniae (PCR) Not Detected Parainfluenza 1 (PCR) Not Detected Parainfluenza 2 (PCR) Not Detected Parainfluenza 3 (PCR) Not Detected Parainfluenza 4 (PCR) Not Detected RSV (PCR) Not Detected Entero/Rhino (PCR) Not Detected 04/14/23 03:29 WBC 5.59 RBC 3.45 L Hgb 10.7 L Hct 31.5 L MCV 91.3 MCH 31.0 MCHC 34.0 RDW Std Deviation 41.7 RDW Coeff of Valerie 12.5 Plt Count 171 MPV 10.7 Immature Gran % (Auto) 0.2 Neut % (Auto) 72.0 Lymph % (Auto) 18.4 [place] % (Auto) 7.3 Eos % (Auto) 1.6 Baso % (Auto) 0.5 Neut # (Auto) 4.02 Lymph # (Auto) 1.03 L [place] # (Auto) 0.41 Eos # (Auto) 0.09 Baso # (Auto) 0.03 Immature Gran # (Auto) 0.01 Sodium 141 Potassium 4.5 Chloride 114 H Carbon Dioxide 19 L Anion Gap 8 BUN 43 H Creatinine 0.87 Est Cr Clr Drug Dosing 56.4 Est GFR ( Amer) 75.5 Est GFR (Non-Af Amer) 65.2 BUN/Creatinine Ratio 49.4 H Glucose 88 Calcium 8.2 L Phosphorus 3.9 Troponin I High Sens 63.4 H* D Albumin 3.3 L TSH Urine Color Urine Appearance Urine pH Ur Specific Evans Urine Protein Urine Glucose (UA) Urine Ketones Urine Blood Urine Nitrite Urine Bilirubin Urine Urobilinogen Ur Leukocyte Esterase Urine WBC (Auto) Urine RBC (Auto) U Hyaline Cast (Auto) U Epithel Cells (Auto) Urine Bacteria (Auto) Adenovirus (PCR) B. pertussis DNA (PCR) B.parapertussis DNA PCR C. pneumoniae DNA (PCR) Coronavirus OC43 (PCR) Coronavirus HKU1 (PCR) Coronavirus 229E (PCR) SARS-CoV-2 (PCR) Coronavirus NL63 (PCR) Human Metapneumovir PCR Influenza Type A (PCR) Influenza Type B (PCR) M. pneumoniae (PCR) Parainfluenza 1 (PCR) Parainfluenza 2 (PCR) Parainfluenza 3 (PCR) Parainfluenza 4 (PCR) RSV (PCR) Entero/Rhino (PCR) Diagnostic Findings Echocardiogram performed 04/14/2023: Normal LV systolic function with ejection fraction of 55%. Mild mitral valve prolapse without regurgitation. No addition al valvular heart disease PG Care Time/CCT Total # of Minutes Spent Total Time Spent with Patient: Total time spent is greater than 50% in coordination of care (as documented) at patient's floor/unit and/or counseling patient: Coding Level of Care Code 08470 INT INP/OBS CARE 3/75MIN Diagnoses Chronic heart failure with preserved ejection fraction I50.32 Heart failure chronicity: chronic Primary hypertension I10 Hypertension type: primary hypertension Coronary artery disease involving [place] coronary artery of [place] heart without angina pectoris I25.10 Coronary Disease-Associated Artery/Lesion type: [place] artery [place] vs. transplanted heart: [place] heart Associated angina: without angina Resident Activity Tracking Resident Involvement: Resident Care Provided Care Provided: Adult Hospital Medicine (1) (HFpEF) heart failure with preserved ejection fraction Heart failure chronicity: chronic Qualified Code(s): I50.32 - Chronic diastolic (congestive) heart failure (2) Hypertension Hypertension type: primary hypertension Qualified Code(s): I10 - Essential (primary) hypertension (3) Coronary artery disease Coronary Disease-Associated Artery/Lesion type: [place] artery [place] vs. transplanted heart: [place] heart Associated angina: without angina Qualified Code(s): I25.10 - Atherosclerotic heart disease of [place] coronary artery without angina pectoris
--- NOTE | 2023-04-14 12:03 | XCELERA ---
[id number]
--- NOTE | 2023-04-14 12:33 | Pre Anesthesia Assessment ---
Date of Service April 14, 2023 Pre Sedation Assessment Vital Signs Temp Pulse Pulse Resp BP BP Pulse Ox 04/14/23 07:04 70 04/14/23 07:00 149/78 H 04/14/23 07:00 73 23 95 04/14/23 06:00 69 134/74 95 04/14/23 02:30 72 19 165/89 H 93 04/14/23 02:00 69 16 172/88 H 93 04/14/23 01:30 69 18 177/83 H 97 04/14/23 01:00 73 16 153/76 H 93 04/14/23 00:30 72 20 153/80 H 94 04/14/23 00:00 69 20 158/82 H 95 04/13/23 23:30 69 17 156/80 H 96 04/13/23 23:00 66 04/13/23 23:00 74 22 148/75 H 94 04/13/23 23:00 04/13/23 23:00 96 04/13/23 22:00 70 20 172/104 H 97 04/13/23 20:30 79 25 H 172/134 H 93 04/13/23 19:30 67 15 198/93 H 95 04/13/23 19:21 81 04/13/23 19:02 67 16 181/111 H 97 04/13/23 19:01 97 04/13/23 15:07 36.4 C L 77 20 163/87 H 97 Pulse Ox O2 Del Method O2 Del Method 04/14/23 07:04 04/14/23 07:00 04/14/23 07:00 04/14/23 06:00 Room Air 04/14/23 02:30 Room Air 04/14/23 02:00 Room Air 04/14/23 01:30 Room Air 04/14/23 01:00 Room Air 04/14/23 00:30 Room Air 04/14/23 00:00 Room Air 04/13/23 23:30 Room Air 04/13/23 23:00 04/13/23 23:00 Room Air 04/13/23 23:00 96 Room Air 04/13/23 23:00 Room Air 04/13/23 22:00 Room Air 04/13/23 20:30 04/13/23 19:30 04/13/23 19:21 04/13/23 19:02 Room Air 04/13/23 19:01 Room Air 04/13/23 15:07 Room Air Cardiovascular + regular rate and + regular rhythm Respiratory + respiratory effort normal Pre-Sedation Airway Assessment Smoking Status: Former smoker Hx Sleep Apnea: No Hx Difficult Intubation: No Short, Thick Neck: No Thyromental Distance: > or= 3.5 Finger Breadths Oral Cavity: + WNL Mallampati Class: III ASA: ASA3 Procedure Planning Contraindications for Sedation: none Current Medications Reviewed: Yes Notes The planned sedation has been discussed with the patient. Informed Consent was obtained. I have identified the patient, determined the appropriateness of sedation and have assessed the patient immediately prior to the procedure. All medicine(s) and interventions are by my order.
[2023-04-14] MEDS ORDERED: MIDAZOLAM HCL 1 MG/ML 2ML VIAL ONE (13:15)
[2023-04-14] MEDS ORDERED: HEPARIN (PORCINE) 1000 UNIT/ML 10 ML (CATH LAB USE ONLY) ONE (13:15)
[2023-04-14] MEDS ORDERED: fentaNYL citrate PF 100 MCG/2 ML VIAL ONE (13:16)
[2023-04-14] MEDS ORDERED: niCARdipine HCL INJ 2.5 MG/ML 10 ML AMP ONE (13:16)
[2023-04-14] MEDS ORDERED: NITROGLYCERIN/D5W 100MCG/ML 20ML SYR ONE (13:16)
[2023-04-14] MEDS ORDERED: OPTIRAY 350 ONE (13:21)
--- NOTE | 2023-04-14 13:55 | Cardiac Catheterization ---
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 Cardiac Status Clinical evaluation leading to the procedure CAD Presenation: Sx unlikely to be ischemic Diagnostic Physicians Name: Seth Jarrett MD Closure Device Recommendations: Medical Therapy and/or Counseling Cardiac Cath Procedure Full Procedure Date April 14, 2023 Pre-Procedure Diagnosis Pre-Procedure Diagnosis: Cardiothoracic Symptom AUC Score AUC Score: 7 Post-Procedure Diagnosis Post-Procedure Diagnosis: Mild CAD Procedure(s) Performed Procedure(s) Performed: Coronary Angiography and Left Heart Cath Lead Housekeeper Seth Jarrett MD Doctor Osteopathic(s) none Estimated Blood Loss Estimated Blood Loss: 10cc Medication(s) Medication(s): Fentanyl, Heparin, Lidocaine 1%, Nicardipine, Nitroglycerin and Versed Summary of Findings Procedure performed: Left heart catheterization, selective coronary angiography Staff stabilizing machine operator: Seth Jarrett MD Indication: The patient is a 77-year-old woman with a history of mild coronary artery disease who has been experiencing symptoms progressive dyspnea and irritation. She previously undergone noninvasive stress testing which did not reveal any evidence of inducible ischemia, but due to the persistent nature of her symptoms she was advised to undergo coronary angiography today. Procedure in detail: The patient was informed of the risks benefits and alternatives to the intended procedure, he understood such and wished to proceed. He was taken to the cardiac catheterization suite in a fasting state. Conscious sedation was administered per protocol and the patient was monitored electrocardiographically throughout today's procedure. The right wrist area was prepped and draped in usual sterile fashion. This area was anesthetized using subcutaneous administration of a lidocaine solution. The right radial artery was then accessed using Seldinger technique, and a arterial sheath was placed at this site over a guidewire. The sheath was used to facilitate passage of the cardiac catheter for coronary angiography and left heart catheterization. Coronary angiogram was then obtained in multiple orthogonal views prior to removal of the catheter. At the conclusion of the procedure the sheath was removed and hemostasis was achieved at the access site using manual pressure. The patient tolerated procedure well, there were no immediate complications. Equipment used: 5 [place] JL 3.5, 5 [place] JR4 Findings: Coronary angiography Left main: There was near dual ostial physiology. No significant left main. Left anterior descending: He had had a 30% narrowing in its proximal portion prior at the site of a very small 1st diagonal. There is a mild ectatic segment at the site of a large 2nd diagonal and approximately 50% stenosis in the portion just distal to the 2nd diagonal. The vessel produce some additional small diagonal branches but there was no additional obstructive disease. Left circumflex:. It produced a large 1st OM in 2 additional diminutive OM branches. No disease in this distribution Right coronary: The right coronary did produce a small PDA. There is no significant disease in the right coronary artery. Impression: Go dominant coronary system Nonobstructive disease involving the proximal and mid LAD Normal left ventricular filling pressures No evidence of aortic stenosis Hemodynamics Rest Ao:: 141/75 mm of mercury Final Ao: 150/75 mm of mercury LV: 141/2 mm of mercury Left ventricular end-diastolic pressure 5 mm of mercury Recommendations Recommendations: Medical Therapy and/or Counseling Specimens Specimens: None Radiation Exposure (mGy) 397 Contrast (mls) 25 Procedural Complication(s) None Disposition Rope Silica Machine Operator Holding/Recovery I attest to the content of the Intraoperative Record and any orders documented therein. Any exceptions are noted below. [facility] Card Cath Procedure Codes Cardiac Catheterization Procedure 1: Cardiovascular Cath Procedures: 90044 Left Heart Cath (+/-LV) Moderate Sedation Procedure 1: Sedation/Anesthesia: 80512 Mod Sedation by the same physician;Init15 Min Child Age 5 & Up Procedure 2: Sedation/Anesthesia: 35922 Mod Sedation by the same physician; Ea [id number] Minutes PG Care Time/CCT Total # of Minutes Spent Total Time Spent with Patient: Total time spent is greater than 50% in coordination of care (as documented) at patient's floor/unit and/or counseling patient:
--- NOTE | 2023-04-14 13:55 | Post Anesthesia Assessment ---
Date of Service April 14, 2023 Post Sedation Assessment Vital Signs Temp Pulse Pulse Resp BP BP Pulse Ox 04/14/23 12:56 69 16 128/77 97 04/14/23 08:31 122/94 04/14/23 08:31 75 21 04/14/23 08:00 79 21 96 04/14/23 08:00 137/81 04/14/23 07:04 70 04/14/23 07:00 149/78 H 04/14/23 07:00 73 23 95 04/14/23 06:00 69 134/74 95 04/14/23 02:30 72 19 165/89 H 93 04/14/23 02:00 69 16 172/88 H 93 04/14/23 01:30 69 18 177/83 H 97 04/14/23 01:00 73 16 153/76 H 93 04/14/23 00:30 72 20 153/80 H 94 04/14/23 00:00 69 20 158/82 H 95 04/13/23 23:30 69 17 156/80 H 96 04/13/23 23:00 66 04/13/23 23:00 74 22 148/75 H 94 04/13/23 23:00 04/13/23 23:00 96 04/13/23 22:00 70 20 172/104 H 97 04/13/23 20:30 79 25 H 172/134 H 93 04/13/23 19:30 67 15 198/93 H 95 04/13/23 19:21 81 04/13/23 19:02 67 16 181/111 H 97 04/13/23 19:01 97 04/13/23 15:07 36.4 C L 77 20 163/87 H 97 Pulse Ox O2 Del Method O2 Del Method 04/14/23 12:56 Room Air 04/14/23 08:31 04/14/23 08:31 04/14/23 08:00 04/14/23 08:00 04/14/23 07:04 04/14/23 07:00 04/14/23 07:00 04/14/23 06:00 Room Air 04/14/23 02:30 Room Air 04/14/23 02:00 Room Air 04/14/23 01:30 Room Air 04/14/23 01:00 Room Air 04/14/23 00:30 Room Air 04/14/23 00:00 Room Air 04/13/23 23:30 Room Air 04/13/23 23:00 04/13/23 23:00 Room Air 04/13/23 23:00 96 Room Air 04/13/23 23:00 Room Air 04/13/23 22:00 Room Air 04/13/23 20:30 04/13/23 19:30 04/13/23 19:21 04/13/23 19:02 Room Air 04/13/23 19:01 Room Air 04/13/23 15:07 Room Air Recovery Score Activity: Moves 4 extremities Respiration: Deep Breath/Cough Circulation: +/-20% PreAnes Value Consciousness: Fully Awake Oxygen Saturation: > 92% On Room Air Discharge Sedation Level of Care: Fast Track Phase II Post Sedation Plan On clinical assessment, the patient appears to have tolerated the sedation without complications. Patient is recovering as anticipated. Patient will continue to be monitored by nursing and may be discharged when sedation discharge criteria are met per below protocol. Upon Completions of procedure up to 15 minutes continue every 5 minute vital signs and the P.A.R. score; then discharge to a Phase I or Fast Track to Phase II per the following guidelines: * Discharge Patient to appropriate Phase II area if PAR is 8 or greater or return to pre- procedure baseline. The post - procedure orders will be as directed. * If PAR score is less than 8 or not return to pre-procedure baseline then tiffany ent will follow Phase I monitoring till PAR is reached for Phase II. The Phase I may be done in procedure room or may call to secure a Phase I area. * If naloxone or flumazenil are used for reversal, hold in Phase I for continued monitoring from when last reversal dose was given for a minimum of 60 minutes or longer pending the nurse and/or physician discretion of patient condition before discharge to Phase II. Please call the Sedation Physician to re-evaluate and complete post-note for discharge to Phase II area. Do NOT discharge from procedure sedation or Phase 1 until post- sedation e valuation note is complete by procedure /sedation MD Sedation Discharge Instructions to be given to the patient at discharge to home.
--- NOTE | 2023-04-14 14:30 | Electrocardiogram Report ---
Test Reason : Blood Pressure : / mmHG Vent. Rate : 070 BPM Atrial Rate : 035 BPM P-R Int : 000 ms QRS Dur : 072 ms QT Int : 388 ms P-R-T Axes : 037 -30 -79 degrees QTc Int : 419 ms Sinus rhythm with frequent PVCs Left axis deviation Minimal voltage criteria for LVH, may be normal variant Abnormal ECG Confirmed by Seth Jarrett ([id number]) on 04/14/2023 2:29:59 PM Referred By: Confirmed By:João Jarrett
[2023-04-14 15:23] VITALS: TEMP 98.4
[2023-04-14 16:47] VITALS: RESP 20
--- NOTE | 2023-04-14 17:27 | Discharge Summary ---
Date of Service April 14, 2023 Admission HPI Per Admitting Provider Carol is a 77 year old female with PmHx cardiomyopathy, non occlusive coronary artery disease, HTN, abnormal EKG, chronic diarrhea, breast cancer coming in at the direction of cardiology after concerning lab work and symptoms. Patient states that over the past 2 weeks she's had increased dyspnea on exertion with walking distances across the room. The dyspnea has been mild for her. She's also had increased water weight over this time frame as well and states that she was placed on spironolactone however experienced bad headaches from this. She was then switched to torsemide and states that she lost 3-4 pound s while on the torsemide. Her base weight is 162lbs and she was up to 170lbs at the height. She says she feels like a bubble is present at times due to also having a lot of burping associated with this. She denies any chest pain, fevers, chills, recent illness or sickness. Patient had blood work which showed a troponin of 15.4, repeat in the ER 18.1, a BNP of 809, otherwise unremarkable. KUB from earlier today showed nonobstructive bowel gas pattern, no evidence of hiatal hernia. CXR without acute process. Admission Exam Per Admitting Provider Physical Exam Constitutional: WD/WN, vitals as above Respiratory: normal respiratory effort, lungs clear to auscultation Cardiovascular: Extremities: + pedal edema (mild edema b/l in calves) Gastrointestinal (Abdomen): normal bowel sounds, soft, nontender, no hepatosplenomegaly Principal Diagnosis CHF exacerbation, elevated troponins Discharge Exam Constitutional WD/WN, vitals as above Respiratory normal respiratory effort, lungs clear to auscultation Cardiovascular Extremities: + pedal edema (mild edema b/l in calves) Gastrointestinal (Abdomen) normal bowel sounds, soft, nontender, no hepatosplenomegaly Discharge Data Allergies Allergy/AdvReac Type Severity Reaction Status Date / Time aspirin Allergy Mild ITCHING Verified 04/13/23 20:14 anastrozole Allergy Unknown Verified 04/13/23 20:14 garlic AdvReac Diarrhea Verified 04/13/23 20:34 lactase [From Dairy Aid] AdvReac Diarrhea Verified 04/13/23 20:32 onion AdvReac Diarrhea Verified 04/13/23 20:33 Poison Johanny Extract/Poison Allergy Intermediate AIR[place]ORNE Uncoded 04/13/23 20:14 [place] Extra OR CONTACT-WELTS, WEEPING LESIONS spironolactone AdvReac Intermediate '' wicked Uncoded 04/13/23 20:14 headache" Consultations 04/13/23 19:07 ED Decision to Admit Stat 04/13/23 21:55 Consult Cardiology Routine Procedures Performed Operation Date: 04/14/23 12:45 Actual Procedures s Cineradiography w/Routine Exam - Seth Jarrett MD p Cath, Left with Cors and Vent - Seth Jarrett MD Ordered Studies 04/14/23 12:33 CL Cath Imgs for PACS use only Routine Hospital Course (1) (HFpEF) heart failure with preserved ejection fraction: (2) Hypertension: (3) Coronary artery disease: (4) CHF exacerbation: Plan Pt is a 77 yo female with a past med hx of heart failure, hx cardiomyopathy following with Dr. Camarillo, HTN, and CAD that presents to the hospital on 04/13 for AUGUST and lower extremity edema. Due to recurrence of symptoms in September and November of exertional SOB, will plan to do catheterization to evaluate for progression of CAD as a cause of her symptoms. With fairly unremarkable stress echo in September 2022 with same symptoms at that time, not sure we will see much progression but symptoms are still concerning, so will evaluate further. HFpEF - stress echo 09/2022 showed EF 55-60%, hx HFmrEF with 04/2020 echo showing EF 40-45% - BNP elevated 900 in setting of progressive AUGUST and edema - echo done this admission showed EF 50-55%, report pending - pt appears nearly euvolemic today and appears to have maybe had recent [place] based on GFR 50 yesterday with baseline seemingly in 70-80s, so diurese carefully - pt should continue lasix or other diuretic po prn for edema or increasing weight changes when outpatient - consider transition to po lasix, continue to monitor I&Os and kidney function daily - patient discharged today after recommendation from cardiology: cardiac catheterization: no obstructive coronary disease found, normal intracardiac pressure echocardiography: LV systolic function normal, left atrium mildly dilated, mild mitral valve prolapse - patient advised to maintain current home meds and dosages, F/U with cardiology Hypertension - continue home metoprolol and valsartan CAD - continue home atorvastatin - continue home plavix Total Time Total Time Spent Total Time Spent (In Minutes): see attending attestation Discharge Plan Discharge Items Patient Disposition: Home - Self-Care Reason For Visit: DYSPNEA ON EXERTION Discharge Diagnosis: dyspnea on exertion, CHF exacerbation Activity: Resume your previous activity Lifting: No more than 5 pounds Lifting Comment: No lifting greater than 5 lb or strenuous use of the right hand for 7 days Non-emergency contact: Primary Care Provider Call non-emergency contact if: you have any medication questions, your pain is concerning for you and you have a fever Follow-up/Referrals: Jacob Victoria DO [Primary Care Provider] - 04/25/23 11:30 am Diet: Regular Addtl Attending Provider Instructions: You were admitted to the hospital for dyspnea on exertion, increased weight gain over last few weeks. You were treated with furosemide, in addition to your regular medications for your cardiac conditions. A discharge summary will be sent to your primary care physician to ensure continuity of care. Please bring this discharge summary with you to your next office appointment so that your provider can review it at that time. Follow-up appointments: We have requested a follow-up appointment with your primary care physician within one week of discharge. Please call their office if you do not hear from them. Keep all your follow-up appointments as already scheduled. If you cannot make an appointment, notify your provider. Medications: Your medication list has been reviewed and reconciled upon discharge to ensure accuracy and continuity of care. An updated list of all your medications is included with your hospital discharge paperwork. Please review this list closely, and make note of any changes. We sent a new medication called [med name] to your pharmacy. Take [med name] ([_]mg) [one tablet] [daily] [for _ days]. Take your medications as instructed; do not skip a dose of your medicines. Make sure all of your doctors know every medicine you are taking (including nzdy-tfo-priukdu medicines, vitamins, and supplements). Call your primary care provider before taking any new medicines (including vapn-sow-xmhrurb medicines, vitamins, and supplements), because some of these may interact with your current medications, or may make your symptoms worse. Tell your primary care provider if you cannot afford your medications. CONTACT YOUR PRIMARY CARE PROVIDER if you experience any of the following: fevers, chills, increasing shortness of breath, chest pain or discomfort Difficulty following your treatment plan, or difficulty taking medications CALL 911 OR GO TO THE EMERGENCY DEPARTMENT if you experience any of the following: Sudden, severe abdominal pain or nausea/vomiting Severe chest pain, or chest pain that radiates (moves) to your jaw or arm Sudden, severe shortness of breath or difficulty breathing Thank you for allowing us to participate in your care Pending Studies at Discharge: No Stand-Alone Forms: My [facility], Smoking Cessation Medications and DC Order Prescriptions: Continued atorvastatin 10 mg tablet 10 mg PO HS Qty: 90 3RF metoprolol succinate 50 mg tablet extended release 24 hr 50 mg PO DAILY Qty: 90 3RF torsemide 5 mg tablet 5 mg PO DAILY PRN (Reason: weight gain) Qty: 90 1RF Rx Instructions: 04/13/23 : Pt reports she was told today, by Dr. Camarillo, to stop taking this med. This was after she had taken today's dose. potassium chloride 20 mEq tablet extended release 20 meq PO DAILY PRN (Reason: Days taking torsemide) Qty: 90 1RF Rx Instructions: 04/13/23 : pt reports she was told today, by Dr. Camarillo, to stop taking this med. This was after she had taken today's dose. peg 400-propylene glycol 0.4-0.3 % drops 1 - 2 drops OP DAILY PRN (Reason: dry eye(s)) Qty: 1 Digestive Probiotic 10 billion cell capsule 1 cap PO DAILY loperamide [Imodium A-D] 2 mg capsule 2 mg PO DAILY PRN (Reason: Diarrhea) clopidogrel 75 mg tablet 75 mg PO DAILY Qty: 90 3RF valsartan 40 mg tablet 40 mg PO QAM Discharge Orders: Discharge Order (Routine); Ordered 04/14/23 Ordered By: Seth Sue Admission Data Admit Date/Time: 04/13/23 19:52 Attending Provider: Seth Jacobson Admit Provider: Nabil Patrick Primary Care Provider: Jacob Victoria Other Providers: Annie Cowart Christopher W. Other Interventions: Discharge Summary Assessment (RN) Last Done: 04/14/23 16:24 Supervising Physician Co-Signing Physician Notes Attending attestation Pt seen and examined in concert with Dr. Sue. In agreement with the documented findings as noted in the resident documentation with any exceptions or additions as noted here. Patient resting comfortably in bed without acute complaint with SOB at chronic stable baseline. On examination, S1/S2 nl RRR no MCG. CTAB. Abd NT/ND BS+ve VS 127/78, 74, 20, 36.9C, 95 RA Data: cardiac cath results, WBC 5.59, hgb 10.7, Cr 0.87, trop 63.4 HFpEF with echo and cath results as noted - cardiology consult - continue torsemide , valsartan, metoprolol, follow up with cardiology Else see resident documentation as noted. Total attending physician time spent with this patient's care on the day of discharge: 35 minutes. Resident Activity Tracking Resident Involvement: Resident Care Provided Care Provided: Adult Hospital Medicine
[2023-04-14 17:33] VITALS: BP 127/78; PULSE 74; O2SAT 95
== END 2023-04-14 18:50 | disposition home or self-care (01) ==
LOC: EDINP 14:49 → ED 14:49 → SUATTDRO 19:52 → EDINP 04-14 13:37 → 2S 04-14 15:21

== ENCOUNTER 2024-05-02 15:27 | Inpatient (IN) ==
--- NOTE | 2024-05-02 15:37 | ED Triage Note ---
Date of Service May 02, 2024 Provider in Triage Author: Getachew Ruiz History of Present Illness This patient was briefly evaluated while in triage. An abbreviated physical exam was performed. This patient is a 78-year-old Female who presents to the ED for evaluation of lower extremity edema. The patient was referred here from her audio experience expert. The patient reports venous insufficiency/edema of her legs a few weeks ago. She was started on another diuretic 2 weeks ago. Patient currently denies any chest pain or shortness of breath. The patient reports that he had been with diuretics, she had less urine output. The patient reports that she was switched to Bumex, and reports that her potassium level was increased. The patient denies any leg pain. Physical Exam CONSTITUTIONAL: Healthy and well nourished. Patient does not appear in any acute distress. HEENT: Normocephalic, atraumatic. Pupils equal, round and reactive. No scleral icterus or conjunctival injection. RESPIRATORY: Clear to auscultation bilaterally with no wheezing, crackles, rhonchi or stridor. CARDIOVASCULAR: Regular rate and rhythm with no murmurs, rubs or gallops. GASTROINTESTINAL: Bowel sounds present in all quadrants. MUSCULOSKELETAL: Examination shows edema of both legs, right worse than left. INTEGUMENTARY: No rash or other significant dermatologic conditions noted. HEMATOLOGIC: No ecchymosis or petechiae. PSYCHIATRIC: Positive affect. NEUROLOGIC: No focal neurologic deficits noted. Initial orders for labs and / or imaging were placed and patient was placed in the waiting area until a bed is available. Please see further documentation for the full ED course.
[2024-05-02 16:47] LABS: Alanine Aminotransferase 27 U/L (7-52); Albumin Globulin Ratio 1.7 (0.9-2); Alkaline Phosphatase 49 U/L (34-104); Anion Gap 7 (3-11); BUN Creatinine Ratio 65.1 (10-20); Bilirubin,Total 0.5 mg/dl (0.2-1.0); Blood Urea Nitrogen 95 mg/dl (6-23); Calcium 8.8 mg/dl (8.6-10.3); Carbon Dioxide 19 mmol/L (21-32); Chloride 112 mmol/L (98-107); Creatinine Clr Calc Pharmacy 33.1 ml/min; Globulin 2.3 gm/dl (2.5-4.0); Glucose 111 mg/dl (70-99(Fasting)); Lipase 62 U/L (11-82); Sodium 138 mmol/L (136-145); Total Protein 6.3 gm/dl (6.0-8.3); Troponin I High Sensitivity 8.9 pg/ml (0-14)
--- NOTE | 2024-05-02 16:50 | XRay Report ---
EXAM: X-ray chest 1 view not portable CLINICAL HISTORY: Chest pain, dehydration PRIORS: Chest CT 02/27/2024, chest radiograph 04/13/2023 TECHNIQUE: PA upright chest FINDINGS: The chest is well-expanded. No airspace consolidation, effusion or congestive changes. Moderate enlargement of the cardiac silhouette, unchanged. No pneumothorax. Mild to moderate atherosclerotic disease of the aortic knob. Trachea is patent. Osseous structures demonstrate no acute abnormality. No radiopaque foreign body. IMPRESSION: 1. No plain film evidence of an acute cardiopulmonary process. 2. Moderate enlargement of the cardiac silhouette, unchanged. Electronically signed by Laura Vyas 05-02-2024 4:50 PM
[2024-05-02 16:58] LABS: Basophils # (auto) 0.03 K/uL (0.00-0.20); Basophils % (auto) 0.6 %; Eosinophils # (auto) 0.09 K/uL (0.00-0.50); Eosinophils % (auto) 1.7 %; Hematocrit (blood only) 35.1 % (37.0-47.0); Hemoglobin 11.6 g/dl (12.0-16.0); Immature Granulocytes # (auto) 0.01 K/uL (0.01-0.20); Immature Granulocytes % (auto) 0.2 %; Lymphocytes # (auto) 1.55 K/uL (1.20-3.40); Lymphocytes % (auto) 29.4 %; Mean Corpuscular Volume 90.7 fL (80.0-100.0); Mean Platelet Volume 11.8 fL (9.4-12.4); Monocytes # (auto) 0.38 K/uL (0.11-0.59); Monocytes % (auto) 7.2 %; Neutrophils # (auto) 3.22 K/uL (1.40-6.50); Neutrophils % (auto) 60.9 %; Platelet Count 183 K/uL (130-400); RDW Coefficient of Variation 12.5 % (11.5-14.5); RDW Standard Deviation 41.7 fL (36.4-46.3); Red Blood Count 3.87 M/uL (4.20-5.40); White Blood Count 5.28 K/ul (4.8-10.8)
[2024-05-02 17:17] LABS: Potassium 5.7 mmol/L (3.5-5.1)
[2024-05-02 17:23] LABS: INR 0.9 (0.9-1.1); Partial Thromboplastin Ratio 0.9; Partial Thromboplastin Time 24 Seconds (21-31); Prothrombin Time 10.2 Seconds (9.0-12.0)
[2024-05-02] MEDS: SODIUM CHLORIDE 0.9% 1,000 ML IV ONE (18:02)
[2024-05-02] MEDS: CALCIUM GLUCONATE 1,000 MG/60 ML BAG IV STA (18:06)
--- NOTE | 2024-05-02 18:51 | Emergency Department Note ---
Impression & Plan Acute hyperkalemia, [place] (acute kidney injury) ED Provider Note NAME: JESSICA SZYMANSKI AGE: 78 SEX: F : 1945 ARRIVES VIA: Walk-In INFORMANT: Patient, ED PROVIDER(S): Enrike Patricio MD CHIEF COMPLAINT: Dehydration, hyperkalemia HPI: This is a 78-year-old female presenting for dehydration/hyperkalemia. Patient was sent by agate setter. Patient has had multiple weeks of lower extremity edema. Started on Bumex and potassium supplementation. Today patient had blood work due to symptoms are not improving. Patient had a potassium of 5.9 at the time with increased creatinine. Patient was advised to come to the ER by agate setter. At this time patient has no current symptoms. She does report chronic fatigue over the past few weeks and starting Bumex otherwise. No palpitations, shortness breath, syncope. ROS: See above HPI for pertinent positives & negatives. A total of 10 systems reviewed and were otherwise negative. PAST MEDICAL HISTORY: See Below PAST SURGICAL HISTORY: See Below FAMILY HISTORY: See Below SOCIAL HISTORY: See Below HOME MEDICATIONS: See Below ALLERGIES: See Below VITALS: See Below PHYSICAL EXAMINATION: General: resting comfortably in no acute distress Head: Normocephalic and atraumatic Eyes: Normal inspection, extraocular muscles intact Ear, nose, throat: Normal external exam Neck: Normal range of motion Respiratory: lungs clear to auscultation bilaterally Cardiovascular: Regular rate/rhythm, no murmur GI: soft, nontender, no guarding or rebound Extremities: nontender, moves all extremities Neuro: The patient awake and alert, appropriately conversive, no focal deficits, symmetric faces Skin: Warm, dry, and intact MEDICAL DECISION MAKING: This is a 78-year-old female present for dehydration/ hyperkalemia. -Patient's EKG is reassuring at this time showed no signs of significant hyperkalemia however her blood work does confirm this. -Will give fluids and calcium gluconate in the meantime - I have reviewed the outside records that include cardiology note from Dr. hernandez, cardiology about patient's current lab results and recommendations. -ECG independently interpreted by me with sinus Bradycardia at 56 normal OH, normal QRS, normal QTc, no ST segment elevations consistent with STEMI criteria -Potassium is noted at 5.7 at this time, creatinine is elevated at 1.46. -Patient has remained stable at this time. Will admit her to the hospital for CKD, hyperkalemia Differential diagnosis: CKD, acute renal failure, hyperkalemia, overdiuresis Diagnostics interpreted by me: ECG: See above Cardiac Monitoring: An order was placed for continuous cardiac monitoring. The monitor shows a rate of 58 with sinus bradycardia rhythm. Critical Care Note: I have personally spent 35 minutes of critical care time in the direct management of this patient. This includes bedside care, interpretation of diagnostic studies, and testing, discussion with consultants, patient, and family members, and other required patient management activities. This 35 minutes is in excess of all separately billable procedures. Past Med/Surg History Problem List (Updated 05/03/24 @ 01:20 by Enrike Patricio MD) [place] (acute kidney injury) (Acute) Acute hyperkalemia (Acute) Hyperkalemia, diminished renal excretion Acute kidney injury CHF exacerbation (HFpEF) heart failure with preserved ejection fraction Coronary artery disease Elevated brain natriuretic peptide (BNP) level (Acute) Elevated troponin (Acute) Chest pressure (Acute) AUGUST (dyspnea on exertion) (Acute) Abnormal electrocardiogram Chest pain Leg pain Right leg swelling Chronic diarrhea Cholelithiasis Malignant neoplasm of upper-outer quadrant of right breast in female, estrogen receptor positive (Chronic 12/10/19) Coronary artery calcification Cardiomyopathy Hypertension Tachycardia Dyspnea Lower extremity edema Mitral valve prolapse Per cardiology 02/28/19, prolapse with minimal MR seen on 2014 echo (done in [place], no echo on file). No murmur noted on exam at [facility]. History of tobacco abuse Dyslipidemia (Chronic) Menieres disease (Chronic) Benign cystic nephroma Heart disease Abnormal electrocardiogram T wave inversion in V1-V6; had full cardiac workup including heart cath in 2013 in [place]. Now follows annually with Dr. Camarillo. Denies any chest pain. Medical History History of bronchitis Allergic rhinitis Angioma Benign nevus of skin Lentigines Seborrheic keratosis Xerosis of skin Hearing loss Meniere's disease Non-occlusive coronary artery disease Left renal mass Surgical History Status post breast lumpectomy History of tooth extraction History of cataract surgery History of colonoscopy History of cardiac cath Hx of partial nephrectomy Family History Mother Colon cancer Stroke Myocardial infarction Brother Cancer Father Hypertension Other Coronary heart disease Denies family history of Ovarian cancer Prostate cancer Breast cancer Lung cancer Social History Smoking Status: Former smoker Tobacco Type: Cigarettes Age Started Using Tobacco: 20; Age Quit Using Tobacco: 58; packs per day: 0.5; Cigarettes Per Day: 10; Second Hand Exposure: No; Do You Dip or Chew Tobacco: No; Hx Alcohol Use: No Hx Substance Use: No Preferred Language: Marshallese Communication Ability: Effective Communication Ability Comment: HARD OF HEARING Visual Impairment: Diminished Hearing Ability: Use of Hearing Aid 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: No Beliefs That Will Affect Care: None marital status: marital status details: spouse is paraplegic, housebound Current Living Situation: Spouse Current Living Situation Comment: at home with current occupational status: retired 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 [employer] How many Children do You have: 0 other: vision: nearsighted after cataract surgery, wears reading glasses Feels Safe at Home: Yes Childhood Exposure to Second-Hand Smoke: Yes Diet: low salt caffeine: Yes Dental Care, Regularly: Yes Physical Activity Frequency: Daily Physical Activity Frequency Comment: walks her dog twice daily Seatbelt Use: always Sunscreen Use: Yes Assistive Devices: Glasses and Hearing Aid - Bilateral Allergies Allergies Allergy/AdvReac Type Severity Reaction Status Date / Time poison inderjit extract Allergy Intermediate AIRBORNE Verified 05/03/24 00:54 OR CONTACT-WELTS, WEEPING LESIONS poison oak extract Allergy Intermediate AIRBORNE Verified 05/03/24 00:54 OR CONTACT-WELTS, WEEPING LESIONS aspirin Allergy Mild ITCHING Verified 05/02/24 10:38 anastrozole Allergy Unknown Verified 05/02/24 10:38 spironolactone AdvReac Intermediate "wicked Verified 05/03/24 00:53 headache" garlic AdvReac Diarrhea Verified 05/02/24 10:38 lactase [From Dairy Aid] AdvReac Diarrhea Verified 05/02/24 10:38 onion AdvReac Diarrhea Verified 05/02/24 10:38 Home Meds Home Medications Medication Instructions Recorded Confirmed peg 400-propylene glycol 0.4 %-0.3 1 - 2 drops ophthalmic (eye) DAILY 01/02/19 05/02/24 % eye drops PRN dry eye(s) #1 mL Lactobacillus 1 cap PO DAILY 11/19/20 05/02/24 acidophilus-Bifidobac.animalis 10 billion cell capsule (Digestive Probiotic) loperamide 2 mg capsule (Imodium 2 mg PO DAILY PRN Diarrhea 02/15/22 05/02/24 A-D) famotidine 10 mg tablet (Pepcid AC) 10 mg PO DAILY PRN Other 08/17/23 05/02/24 fexofenadine [Shantel Allergy] 1 tab PO DIRECTED PRN Other 01/02/24 05/02/24 Previous Rx's Medication Instructions Recorded metoprolol succinate 50 mg 50 mg PO DAILY #90 tabs 10/10/23 tablet,extended release 24 hr clopidogrel 75 mg tablet 75 mg PO DAILY #90 tabs 04/01/24 potassium chloride 20 mEq 20 meq PO DAILY PRN Days taking 04/19/24 tablet,extended release torsemide #90 tabs bumetanide 1 mg tablet 1 mg PO DAILY PRN edema #30 tabs 04/24/24 rosuvastatin 20 mg tablet 20 mg PO DAILY #90 tabs 05/02/24 valsartan 40 mg tablet 40 mg PO QAM #90 tabs 05/02/24 Results & Data (ED) Vital Signs Vital Signs - 24 hr 05/02/24 15:31 05/02/24 16:48 05/02/24 16:57 Temperature 36.8 C Temperature Source Temporal Artery Scan Pulse Rate 70 57 L Pulse Rate [Apical] 58 L Pulse Rate from SpO2 Sensor Respiratory Rate 14 19 Respiratory Effort / Characteristics Non-Labored Non-Labored Spontaneous Respiratory Depth Normal Normal Blood Pressure 150/96 H Blood Pressure [Left Arm] 174/89 H Blood Pressure Mean 114 Blood Pressure Mean [Left Arm] 117 Pulse Oximetry 97 98 Oxygen Delivery Method Room Air Room Air Sepsis Recent Fever Within 48 Hours No Sepsis New/Unexplained Change in Mental Status N/A Sepsis Action Taken by Nursing No Action Required 05/02/24 17:03 05/02/24 17:30 05/02/24 17:33 Temperature Temperature Source Pulse Rate 56 L 57 L 56 L Pulse Rate [Apical] Pulse Rate from SpO2 Sensor 56 L 57 L 56 L Respiratory Rate 20 24 14 Respiratory Effort / Characteristics Respiratory Depth Blood Pressure Blood Pressure [Left Arm] Blood Pressure Mean Blood Pressure Mean [Left Arm] Pulse Oximetry 97 96 97 Oxygen Delivery Method Sepsis Recent Fever Within 48 Hours Sepsis New/Unexplained Change in Mental Status Sepsis Action Taken by Nursing 05/02/24 17:34 05/02/24 18:03 05/02/24 18:36 Temperature Temperature Source Pulse Rate 60 61 Pulse Rate [Apical] Pulse Rate from SpO2 Sensor 59 L 60 Respiratory Rate 23 20 Respiratory Effort / Characteristics Respiratory Depth Blood Pressure 177/78 H Blood Pressure [Left Arm] Blood Pressure Mean 111 Blood Pressure Mean [Left Arm] Pulse Oximetry 98 99 99 Oxygen Delivery Method Room Air Sepsis Recent Fever Within 48 Hours Sepsis New/Unexplained Change in Mental Status Sepsis Action Taken by Nursing 05/02/24 19:24 05/02/24 19:30 05/02/24 20:00 Temperature Temperature Source Pulse Rate 57 L 56 L 60 Pulse Rate [Apical] Pulse Rate from SpO2 Sensor 58 L 55 L 60 Respiratory Rate 18 16 18 Respiratory Effort / Characteristics Respiratory Depth Blood Pressure Blood Pressure [Left Arm] Blood Pressure Mean Blood Pressure Mean [Left Arm] Pulse Oximetry 97 97 98 Oxygen Delivery Method Sepsis Recent Fever Within 48 Hours Sepsis New/Unexplained Change in Mental Status Sepsis Action Taken by Nursing 05/02/24 20:30 05/02/24 20:57 05/02/24 21:10 Temperature Temperature Source Pulse Rate 59 L 57 L 58 L Pulse Rate [Apical] Pulse Rate from SpO2 Sensor 58 L 59 L Respiratory Rate 15 16 Respiratory Effort / Characteristics Respiratory Depth Blood Pressure 158/76 H Blood Pressure [Left Arm] Blood Pressure Mean 103 Blood Pressure Mean [Left Arm] Pulse Oximetry 96 96 Oxygen Delivery Method Sepsis Recent Fever Within 48 Hours Sepsis New/Unexplained Change in Mental Status Sepsis Action Taken by Nursing 05/02/24 21:24 05/02/24 21:33 Temperature Temperature Source Pulse Rate 58 L 54 L Pulse Rate [Apical] Pulse Rate from SpO2 Sensor 58 L 55 L Respiratory Rate 19 16 Respiratory Effort / Characteristics Respiratory Depth Blood Pressure Blood Pressure [Left Arm] Blood Pressure Mean Blood Pressure Mean [Left Arm] Pulse Oximetry 95 96 Oxygen Delivery Method Sepsis Recent Fever Within 48 Hours Sepsis New/Unexplained Change in Mental Status Sepsis Action Taken by Nursing Laboratory Data 05/02/24 16:41 05/02/24 20:47 Lab Results 05/02/24 05/02/24 05/02/24 Range/Units 15:42 16:41 16:46 WBC Cancelled 5.28 RBC Cancelled 3.87 L Hgb Cancelled 11.6 L Hct Cancelled 35.1 L MCV Cancelled 90.7 MCH Cancelled 30.0 MCHC Cancelled 33.0 RDW Std Deviation Cancelled 41.7 RDW Coeff of Valerie Cancelled 12.5 Plt Count Cancelled 183 MPV Cancelled 11.8 Immature Gran % (Auto) Cancelled 0.2 Neut % (Auto) Cancelled 60.9 Lymph % (Auto) Cancelled 29.4 [place] % (Auto) Cancelled 7.2 Eos % (Auto) Cancelled 1.7 Baso % (Auto) Cancelled 0.6 Neut # (Auto) Cancelled 3.22 Lymph # (Auto) Cancelled 1.55 [place] # (Auto) Cancelled 0.38 Eos # (Auto) Cancelled 0.09 Baso # (Auto) Cancelled 0.03 Immature Gran # (Auto) Cancelled 0.01 Absolute Nucleated RBC Cancelled Nucleated RBC % (auto) Cancelled Neutrophils % (Manual) Cancelled Band Neutrophils % Cancelled Lymphocytes % (Manual) Cancelled Prolymphocyte % Cancelled Reactive Lymphs % (Man) Cancelled Monocytes % (Manual) Cancelled Eosinophils % (Manual) Cancelled Basophils % (Manual) Cancelled Metamyelocytes % (Man) Cancelled Myelocytes % (Man) Cancelled Promyelocytes % (Man) Cancelled Blast Cells % (Manual) Cancelled Plasma Cell % (Manual) Cancelled Other Cells % Cancelled Nucleated RBC % Cancelled Neutrophils # (Manual) Cancelled Band Neutrophils # Cancelled Total Absolute Neuts Cancelled Lymphocytes # (Manual) Cancelled Prolymphocyte # Cancelled Reactive Lymphs # Cancelled Total Abs Lymphocytes Cancelled Monocytes # (Manual) Cancelled Eosinophils # (Manual) Cancelled Basophils # (Manual) Cancelled Metamyelocytes # (Man) Cancelled Myelocytes # (Manual) Cancelled Promyelocytes # (Man) Cancelled Blast Cells # (Man) Cancelled Plasma Cell # (Manual) Cancelled Other Cells # Cancelled Nucleated RBCs # (Man) Cancelled Hypersegmented Neuts Cancelled Hyposegmented Neuts Cancelled Hypogranular Neuts Cancelled Large Granular Lymphs Cancelled # Lrg Granular Lymphs Cancelled Hairy Cells Cancelled Smudge Cells Cancelled Toxic Granulation Cancelled Toxic Vacuolation Cancelled Dohle Bodies Cancelled Susy Rods Cancelled Platelet Estimate Cancelled Hypogranular Platelets Cancelled Giant Platelets Cancelled Platelet Satelliting Cancelled RBC Morphology Cancelled Polychromasia Cancelled Hypochromasia Cancelled Poikilocytosis Cancelled Basophilic Stippling Cancelled Anisocytosis Cancelled Microcytosis Cancelled Macrocytosis Cancelled Spherocytes Cancelled Pappenheimer Bodies Cancelled Sickle Cells Cancelled Target Cells Cancelled Tear Drop Cells Cancelled Ovalocytes Cancelled Stomatocytes Cancelled Mcginnis-[place] Bodies Cancelled Echinocytes Cancelled Acanthocytes (Spur) Cancelled Rouleaux Cancelled RBC Agglutinates Cancelled Schistocytes Cancelled Sezary Cell Cancelled PT Cancelled 10.2 INR Cancelled 0.9 APTT Cancelled 24 PTT Ratio Cancelled 0.9 Sodium 138 (136-145) mmol/L Potassium TNP 5.7 H Chloride 112 H (98-107) mmol/L Carbon Dioxide 19 L (21-32) mmol/L Anion Gap 7 (3-11) BUN 95 H (6-23) mg/dl Creatinine 1.46 H (0.6-1.2) mg/dl Est Cr Clr Drug Dosing 33.1 ml/min eGFR 37.08 BUN/Creatinine Ratio 65.1 H (10-20) Glucose 111 H (70-99(Fasting)) mg/dl Calcium 8.8 (8.6-10.3) mg/dl Phosphorus (2.5-4.9) mg/dl Total Bilirubin 0.5 (0.2-1.0) mg/dl AST TNP 27 ALT 27 (7-52) U/L Alkaline Phosphatase 49 (34-104) U/L Troponin I High Sens 8.9 (0-14) pg/ml B-Natriuretic Peptide 591 H (0-100) pg/ml Total Protein 6.3 (6.0-8.3) gm/dl Albumin 4.0 (3.4-5.0) gm/dl Globulin 2.3 L (2.5-4.0) gm/dl Albumin/Globulin Ratio 1.7 (0.9-2) Lipase 62 (11-82) U/L Blood Parasites ID Cancelled 05/02/24 Range/Units 20:47 WBC RBC Hgb Hct MCV MCH MCHC RDW Std Deviation RDW Coeff of Valerie Plt Count MPV Immature Gran % (Auto) Neut % (Auto) Lymph % (Auto) [place] % (Auto) Eos % (Auto) Baso % (Auto) Neut # (Auto) Lymph # (Auto) [place] # (Auto) Eos # (Auto) Baso # (Auto) Immature Gran # (Auto) Absolute Nucleated RBC Nucleated RBC % (auto) Neutrophils % (Manual) Band Neutrophils % Lymphocytes % (Manual) Prolymphocyte % Reactive Lymphs % (Man) Monocytes % (Manual) Eosinophils % (Manual) Basophils % (Manual) Metamyelocytes % (Man) Myelocytes % (Man) Promyelocytes % (Man) Blast Cells % (Manual) Plasma Cell % (Manual) Other Cells % Nucleated RBC % Neutrophils # (Manual) Band Neutrophils # Total Absolute Neuts Lymphocytes # (Manual) Prolymphocyte # Reactive Lymphs # Total Abs Lymphocytes Monocytes # (Manual) Eosinophils # (Manual) Basophils # (Manual) Metamyelocytes # (Man) Myelocytes # (Manual) Promyelocytes # (Man) Blast Cells # (Man) Plasma Cell # (Manual) Other Cells # Nucleated RBCs # (Man) Hypersegmented Neuts Hyposegmented Neuts Hypogranular Neuts Large Granular Lymphs # Lrg Granular Lymphs Hairy Cells Smudge Cells Toxic Granulation Toxic Vacuolation Dohle Bodies Susy Rods Platelet Estimate Hypogranular Platelets Giant Platelets Platelet Satelliting RBC Morphology Polychromasia Hypochromasia Poikilocytosis Basophilic Stippling Anisocytosis Microcytosis Macrocytosis Spherocytes Pappenheimer Bodies Sickle Cells Target Cells Tear Drop Cells Ovalocytes Stomatocytes Mcginnis-[place] Bodies Echinocytes Acanthocytes (Spur) Rouleaux RBC Agglutinates Schistocytes Sezary Cell PT INR APTT PTT Ratio Sodium 139 (136-145) mmol/L Potassium 5.6 H Chloride 116 H (98-107) mmol/L Carbon Dioxide 18 L (21-32) mmol/L Anion Gap 5 (3-11) BUN 90 H (6-23) mg/dl Creatinine 1.23 H (0.6-1.2) mg/dl Est Cr Clr Drug Dosing 39.3 ml/min eGFR 45.54 BUN/Creatinine Ratio 73.2 H (10-20) Glucose 113 H (70-99(Fasting)) mg/dl Calcium 8.3 L (8.6-10.3) mg/dl Phosphorus 4.4 (2.5-4.9) mg/dl Total Bilirubin (0.2-1.0) mg/dl AST ALT (7-52) U/L Alkaline Phosphatase (34-104) U/L Troponin I High Sens (0-14) pg/ml B-Natriuretic Peptide (0-100) pg/ml Total Protein (6.0-8.3) gm/dl Albumin 3.4 (3.4-5.0) gm/dl Globulin (2.5-4.0) gm/dl Albumin/Globulin Ratio (0.9-2) Lipase (11-82) U/L Blood Parasites ID Administered Medications Discontinued Medications Sodium Chloride (Nss) 1,000 mls @ 999 mls/hr IV .Q1H1M ONE Stop: 05/02/24 18:42 Last Infusion: 05/02/24 19:53 Dose: Infused Documented By: Admin: 05/02/24 18:02 Dose: 999 mls/hr Documented By: ESCOBAR Calcium Gluconate () 1,000 mg in 60 mls @ 240 mls/hr IV NOW STA Stop: 05/02/24 17:56 Last Infusion: 05/02/24 18:53 Dose: Infused Documented By: Admin: 05/02/24 18:06 Dose: 240 mls/hr Documented By: ESCOBAR Imaging Data Radiologist's Impression: Chest X-Ray 05/02/24 15:41 EXAM: X-ray chest 1 view not portable CLINICAL HISTORY: Chest pain, dehydration PRIORS: Chest CT 02/27/2024, chest radiograph 04/13/2023 TECHNIQUE: PA upright chest FINDINGS: The chest is well-expanded. No airspace consolidation, effusion or congestive changes. Moderate enlargement of the cardiac silhouette, unchanged. No pneumothorax. Mild to moderate atherosclerotic disease of the aortic knob. Trachea is patent. Osseous structures demonstrate no acute abnormality. No radiopaque foreign body. IMPRESSION: 1. No plain film evidence of an acute cardiopulmonary process. 2. Moderate enlargement of the cardiac silhouette, unchanged. Electronically signed by Laura Vyas 05-02-2024 4:50 PM Discharge Plan Visit Data Chief Complaint: Dehydration Stated Complaint: REF BY CARDIO, IS DEHYDRATED ED Provider: Enrike Patricio Discharge Problem: Acute hyperkalemia, [place] (acute kidney injury) Discharge Instructions Interventions: ED Discharge Assessment Last Done: 05/03/24 00:48
--- NOTE | 2024-05-02 20:02 | History & Physical Report ---
Date of Service May 02, 2024 Assessment & Plan (1) Hyperkalemia, diminished renal excretion: (2) Acute kidney injury: (3) (HFpEF) heart failure with preserved ejection fraction: (4) Coronary artery disease: (5) Cardiomyopathy: (6) Hypertension: Plan Hyperkalemia/acute kidney injury- Creatinine 1.46, with base 0.67 Potassium 5.7 on admission Status post 1 L normal saline bolus, and calcium gluconate 1 g IV from the ED Check a renal function panel this evening, and further adjustment in treatment as needed Serial CBC with differential, renal function panel and magnesium level every morning Hold Bumex, valsartan and potassium chloride supplements CAD/hypertension/HFpEF/cardiomyopathy- The patient will be admitted to telemetry for serial cardiac enzymes, serial EKG's, cardiac rhythm monitoring and a 2-D echocardiogram with Dopplers. 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 Primary Care Provider: Jacob Victoria DO The patient is a 78-year-old female with a past medical history including HFpEF, CAD, lower extremity edema, right breast cancer, cardiomyopathy, hypertension, Mnire's disease and list dyslipidemia. She reports dealing with chronic generalized fatigue and lower extremity edema over the past few weeks, and had medication adjustment in the outpatient setting to address this. She most recently was started on Bumex and potassium. She was having some generalized weakness symptoms upon visit to the cardiology office afternoon, and routine laboratories we will potassium 5.9 with an increased creatinine. She was then advised to come to the ED for assessment. Allergies Allergy/AdvReac Type Severity Reaction Status Date / Time aspirin Allergy Mild ITCHING Verified 05/02/24 10:38 anastrozole Allergy Unknown Verified 05/02/24 10:38 garlic AdvReac Diarrhea Verified 05/02/24 10:38 lactase [From Dairy Aid] AdvReac Diarrhea Verified 05/02/24 10:38 onion AdvReac Diarrhea Verified 05/02/24 10:38 Poison Johanny Extract/Poison Allergy Intermediate AIRBORNE Uncoded 05/02/24 10:38 [place] Extra OR CONTACT-WELTS, WEEPING LESIONS spironolactone AdvReac Intermediate '' wicked Uncoded 05/02/24 10:38 headache" Home Medications Medication Instructions Recorded Confirmed Type peg 400-propylene glycol 0.4 %-0.3 1 - 2 drops ophthalmic (eye) DAILY 01/02/19 05/02/24 History % eye drops PRN dry eye(s) #1 mL Lactobacillus 1 cap PO DAILY 11/19/20 05/02/24 History acidophilus-Bifidobac.animalis 10 billion cell capsule (Digestive Probiotic) loperamide 2 mg capsule (Imodium 2 mg PO DAILY PRN Diarrhea 02/15/22 05/02/24 History A-D) famotidine 10 mg tablet (Pepcid AC) 10 mg PO DAILY PRN Other 08/17/23 05/02/24 History metoprolol succinate 50 mg 50 mg PO DAILY #90 tabs 10/10/23 05/02/24 Rx tablet,extended release 24 hr fexofenadine [Shantel Allergy] 1 tab PO DIRECTED PRN Other 01/02/24 05/02/24 History clopidogrel 75 mg tablet 75 mg PO DAILY #90 tabs 04/01/24 05/02/24 Rx potassium chloride 20 mEq 20 meq PO DAILY PRN Days taking 04/19/24 05/02/24 Rx tablet,extended release torsemide #90 tabs bumetanide 1 mg tablet 1 mg PO DAILY PRN edema #30 tabs 04/24/24 05/02/24 Rx rosuvastatin 20 mg tablet 20 mg PO DAILY #90 tabs 05/02/24 05/02/24 Rx valsartan 40 mg tablet 40 mg PO QAM #90 tabs 05/02/24 05/02/24 Rx Past Med/Surg History Problem List (Updated 05/02/24 @ 23:21 by Kareem Ramsey MD) Hyperkalemia, diminished renal excretion Acute kidney injury CHF exacerbation (HFpEF) heart failure with preserved ejection fraction Coronary artery disease Elevated brain natriuretic peptide (BNP) level (Acute) Elevated troponin (Acute) Chest pressure (Acute) AUGUST (dyspnea on exertion) (Acute) Abnormal electrocardiogram Chest pain Leg pain Right leg swelling Chronic diarrhea Cholelithiasis Malignant neoplasm of upper-outer quadrant of right breast in female, estrogen receptor positive (Chronic 12/10/19) Coronary artery calcification Cardiomyopathy Hypertension Tachycardia Dyspnea Lower extremity edema Mitral valve prolapse Per cardiology 02/28/19, prolapse with minimal MR seen on 2014 echo (done in [place], no echo on file). No murmur noted on exam at [facility]. History of tobacco abuse Dyslipidemia (Chronic) Menieres disease (Chronic) Benign cystic nephroma Heart disease Abnormal electrocardiogram T wave inversion in V1-V6; had full cardiac workup including heart cath in 2013 in [place]. Now follows annually with Dr. Camarillo. Denies any chest pain. Medical History History of bronchitis Allergic rhinitis Angioma Benign nevus of skin Lentigines Seborrheic keratosis Xerosis of skin Hearing loss Meniere's disease Non-occlusive coronary artery disease Left renal mass Surgical History Status post breast lumpectomy History of tooth extraction History of cataract surgery History of colonoscopy History of cardiac cath Hx of partial nephrectomy Family History Mother Colon cancer Stroke Myocardial infarction Brother Cancer Father Hypertension Other Coronary heart disease Denies family history of Ovarian cancer Prostate cancer Breast cancer Lung cancer Social History Smoking Status: Former smoker Tobacco Type: Cigarettes Age Started Using Tobacco: 20; Age Quit Using Tobacco: 58; packs per day: 0.5; Cigarettes Per Day: 10; Second Hand Exposure: No; Do You Dip or Chew Tobacco: No; Hx Alcohol Use: No Hx Substance Use: No Preferred Language: Slovenian Communication Ability: Effective Communication Ability Comment: HARD OF HEARING Visual Impairment: Diminished Hearing Ability: Use of Hearing Aid Medical Data Analyst Required: No Beliefs That Will Affect Care: None marital status: marital status details: spouse is paraplegic, housebound Current Living Situation: Spouse Current Living Situation Comment: at home with current occupational status: retired 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 [employer] How many Children do You have: 0 other: vision: nearsighted after cataract surgery, wears reading glasses Feels Safe at Home: Yes Childhood Exposure to Second-Hand Smoke: Yes Diet: low salt caffeine: Yes Dental Care, Regularly: Yes Physical Activity Frequency: Daily Physical Activity Frequency Comment: walks her dog twice daily Seatbelt Use: always Sunscreen Use: Yes Assistive Devices: Glasses and Hearing Aid - Bilateral Review of Systems Review of Systems: The patient denies chest pain, palpitations, cough, sore throat, fevers, chills, sweats, nausea, vomiting, diarrhea , constipation, abdominal pain, pelvic pain, blood in urine or stool, dysuria, urinary frequency or urgency, lightheadedness, dizziness, headache, memory loss, loss of consciousness, rash, abnormal bruising or bleeding, imbalance, focal weakness, numbness or tingling in arms or legs, generalized arthralgias or myalgias, back or neck pain, or night sweats. The review of systems is otherwise negative other than for that already noted above, and at least 10 systems have been reviewed. Physical Exam Physical Exam: The patient is awake, alert and oriented 3, well developed and well nourished, normocephalic and atraumatic, lying in bed and in no acute distress. HEENT--PERRL, EOMI, mucous membranes and oropharynx mildly dry. Neck--supple. No JVD. No bruits. Thyroid normal, trachea midline, no adenopathy. Heart--normal S1 and S2. No murmurs, rubs or gallops. Lungs--clear bilaterally, no respiratory distress, no accessory muscle use. Abdomen--normal bowel sounds and soft. Nontender. Nondistended. Extremities--no cyanosis or clubbing. 1+ bilateral pretibial pitting edema. Dermatologic--normal skin turgor, normal color, no abnormal lymph nodes, no rash. Neurologic--cranial nerves II through XII grossly intact. Rheumatologic--normal range of motion. Psychiatric--normal affect. Results & Data Results & Data Vital Signs (Past 12 Hours) Vital Signs Temp Pulse Pulse Resp BP BP Pulse Ox 05/02/24 19:30 56 L 16 97 05/02/24 19:24 57 L 18 97 05/02/24 18:36 61 20 99 05/02/24 18:03 60 23 177/78 H 99 05/02/24 17:34 98 05/02/24 17:33 56 L 14 97 05/02/24 17:30 57 L 24 96 05/02/24 17:03 56 L 20 97 05/02/24 16:57 57 L 05/02/24 16:48 58 L 19 174/89 H 98 05/02/24 15:31 36.8 C 70 14 150/96 H 97 O2 Del Method 05/02/24 19:30 05/02/24 19:24 05/02/24 18:36 05/02/24 18:03 05/02/24 17:34 Room Air 05/02/24 17:33 05/02/24 17:30 05/02/24 17:03 05/02/24 16:57 05/02/24 16:48 Room Air 05/02/24 15:31 Room Air Laboratory Results Laboratory Results WBC 5.28 K/ul (4.8-10.8) 05/02/24 16:41 RBC 3.87 M/uL (4.20-5.40) L 05/02/24 16:41 Hgb 11.6 g/dl (12.0-16.0) L 05/02/24 16:41 Hct 35.1 % (37.0-47.0) L 05/02/24 16:41 MCV 90.7 fL (80.0-100.0) 05/02/24 16:41 MCH 30.0 pg (25.0-34.0) 05/02/24 16:41 MCHC 33.0 g/dL (32.0-36.0) 05/02/24 16:41 RDW Std Deviation 41.7 fL (36.4-46.3) 05/02/24 16:41 RDW Coeff of Valerie 12.5 % (11.5-14.5) 05/02/24 16:41 Plt Count 183 K/uL (130-400) 05/02/24 16:41 MPV 11.8 fL (9.4-12.4) 05/02/24 16:41 Immature Gran % (Auto) 0.2 % 05/02/24 16:41 Neut % (Auto) 60.9 % 05/02/24 16:41 Lymph % (Auto) 29.4 % 05/02/24 16:41 Pender % (Auto) 7.2 % 05/02/24 16:41 Eos % (Auto) 1.7 % 05/02/24 16:41 Baso % (Auto) 0.6 % 05/02/24 16:41 Neut # (Auto) 3.22 K/uL (1.40-6.50) 05/02/24 16:41 Lymph # (Auto) 1.55 K/uL (1.20-3.40) 05/02/24 16:41 Pender # (Auto) 0.38 K/uL (0.11-0.59) 05/02/24 16:41 Eos # (Auto) 0.09 K/uL (0.00-0.50) 05/02/24 16:41 Baso # (Auto) 0.03 K/uL (0.00-0.20) 05/02/24 16:41 Immature Gran # (Auto) 0.01 K/uL (0.01-0.20) 05/02/24 16:41 Absolute Nucleated RBC Cancelled 05/02/24 15:42 Nucleated RBC % (auto) Cancelled 05/02/24 15:42 Neutrophils % (Manual) Cancelled 05/02/24 15:42 Band Neutrophils % Cancelled 05/02/24 15:42 Lymphocytes % (Manual) Cancelled 05/02/24 15:42 Prolymphocyte % Cancelled 05/02/24 15:42 Reactive Lymphs % (Man) Cancelled 05/02/24 15:42 Monocytes % (Manual) Cancelled 05/02/24 15:42 Eosinophils % (Manual) Cancelled 05/02/24 15:42 Basophils % (Manual) Cancelled 05/02/24 15:42 Metamyelocytes % (Man) Cancelled 05/02/24 15:42 Myelocytes % (Man) Cancelled 05/02/24 15:42 Promyelocytes % (Man) Cancelled 05/02/24 15:42 Blast Cells % (Manual) Cancelled 05/02/24 15:42 Plasma Cell % (Manual) Cancelled 05/02/24 15:42 Other Cells % Cancelled 05/02/24 15:42 Nucleated RBC % Cancelled 05/02/24 15:42 Neutrophils # (Manual) Cancelled 05/02/24 15:42 Band Neutrophils # Cancelled 05/02/24 15:42 Total Absolute Neuts Cancelled 05/02/24 15:42 Lymphocytes # (Manual) Cancelled 05/02/24 15:42 Prolymphocyte # Cancelled 05/02/24 15:42 Reactive Lymphs # Cancelled 05/02/24 15:42 Total Abs Lymphocytes Cancelled 05/02/24 15:42 Monocytes # (Manual) Cancelled 05/02/24 15:42 Eosinophils # (Manual) Cancelled 05/02/24 15:42 Basophils # (Manual) Cancelled 05/02/24 15:42 Metamyelocytes # (Man) Cancelled 05/02/24 15:42 Myelocytes # (Manual) Cancelled 05/02/24 15:42 Promyelocytes # (Man) Cancelled 05/02/24 15:42 Blast Cells # (Man) Cancelled 05/02/24 15:42 Plasma Cell # (Manual) Cancelled 05/02/24 15:42 Other Cells # Cancelled 05/02/24 15:42 Nucleated RBCs # (Man) Cancelled 05/02/24 15:42 Hypersegmented Neuts Cancelled 05/02/24 15:42 Hyposegmented Neuts Cancelled 05/02/24 15:42 Hypogranular Neuts Cancelled 05/02/24 15:42 Large Granular Lymphs Cancelled 05/02/24 15:42 # Lrg Granular Lymphs Cancelled 05/02/24 15:42 Hairy Cells Cancelled 05/02/24 15:42 Smudge Cells Cancelled 05/02/24 15:42 Toxic Granulation Cancelled 05/02/24 15:42 Toxic Vacuolation Cancelled 05/02/24 15:42 Dohle Bodies Cancelled 05/02/24 15:42 Susy Rods Cancelled 05/02/24 15:42 Platelet Estimate Cancelled 05/02/24 15:42 Hypogranular Platelets Cancelled 05/02/24 15:42 Giant Platelets Cancelled 05/02/24 15:42 Platelet Satelliting Cancelled 05/02/24 15:42 RBC Morphology Cancelled 05/02/24 15:42 Polychromasia Cancelled 05/02/24 15:42 Hypochromasia Cancelled 05/02/24 15:42 Poikilocytosis Cancelled 05/02/24 15:42 Basophilic Stippling Cancelled 05/02/24 15:42 Anisocytosis Cancelled 05/02/24 15:42 Microcytosis Cancelled 05/02/24 15:42 Macrocytosis Cancelled 05/02/24 15:42 Spherocytes Cancelled 05/02/24 15:42 Pappenheimer Bodies Cancelled 05/02/24 15:42 Sickle Cells Cancelled 05/02/24 15:42 Target Cells Cancelled 05/02/24 15:42 Tear Drop Cells Cancelled 05/02/24 15:42 Ovalocytes Cancelled 05/02/24 15:42 Stomatocytes Cancelled 05/02/24 15:42 [place] Bodies Cancelled 05/02/24 15:42 Echinocytes Cancelled 05/02/24 15:42 Acanthocytes (Spur) Cancelled 05/02/24 15:42 Rouleaux Cancelled 05/02/24 15:42 RBC Agglutinates Cancelled 05/02/24 15:42 Schistocytes Cancelled 05/02/24 15:42 Sezary Cell Cancelled 05/02/24 15:42 PT 10.2 Seconds (9.0-12.0) 05/02/24 16:41 INR 0.9 (0.9-1.1) 05/02/24 16:41 APTT 24 Seconds (21-31) 05/02/24 16:41 PTT Ratio 0.9 05/02/24 16:41 Sodium 139 mmol/L (136-145) 05/02/24 20:47 Potassium 5.6 mmol/L (3.5-5.1) H 05/02/24 20:47 Chloride 116 mmol/L (98-107) H 05/02/24 20:47 Carbon Dioxide 18 mmol/L (21-32) L 05/02/24 20:47 Anion Gap 5 (3-11) 05/02/24 20:47 BUN 90 mg/dl (6-23) H 05/02/24 20:47 Creatinine 1.23 mg/dl (0.6-1.2) H 05/02/24 20:47 Est Cr Clr Drug Dosing 39.3 ml/min 05/02/24 20:47 eGFR 45.54 05/02/24 20:47 BUN/Creatinine Ratio 73.2 (10-20) H 05/02/24 20:47 Glucose 113 mg/dl (70-99(Fasting)) H 05/02/24 20:47 Calcium 8.3 mg/dl (8.6-10.3) L 05/02/24 20:47 Phosphorus 4.4 mg/dl (2.5-4.9) 05/02/24 20:47 Total Bilirubin 0.5 mg/dl (0.2-1.0) 05/02/24 15:42 AST 27 U/L (13-39) 05/02/24 16:46 ALT 27 U/L (7-52) 05/02/24 15:42 Alkaline Phosphatase 49 U/L (34-104) 05/02/24 15:42 Troponin I High Sens 8.9 pg/ml (0-14) 05/02/24 15:42 B-Natriuretic Peptide 591 pg/ml (0-100) H 05/02/24 16:41 Total Protein 6.3 gm/dl (6.0-8.3) 05/02/24 15:42 Albumin 3.4 gm/dl (3.4-5.0) 05/02/24 20:47 Globulin 2.3 gm/dl (2.5-4.0) L 05/02/24 15:42 Albumin/Globulin Ratio 1.7 (0.9-2) 05/02/24 15:42 Lipase 62 U/L (11-82) 05/02/24 15:42 Blood Parasites ID Cancelled 05/02/24 15:42 Impressions Chest X-Ray 05/02/24 15:41 EXAM: X-ray chest 1 view not portable CLINICAL HISTORY: Chest pain, dehydration PRIORS: Chest CT 02/27/2024, chest radiograph 04/13/2023 TECHNIQUE: PA upright chest FINDINGS: The chest is well-expanded. No airspace consolidation, effusion or congestive changes. Moderate enlargement of the cardiac silhouette, unchanged. No pneumothorax. Mild to moderate atherosclerotic disease of the aortic knob. Trachea is patent. Osseous structures demonstrate no acute abnormality. No radiopaque foreign body. IMPRESSION: 1. No plain film evidence of an acute cardiopulmonary process. 2. Moderate enlargement of the cardiac silhouette, unchanged. Electronically signed by Laura Vyas 05-02-2024 4:50 PM Code Status & VTE Plan Code Status Full code PG Care Time/CCT Total # of Minutes Spent Total Time Spent with Patient: Total time spent is greater than 50% in coordination of care (as documented) at patient's floor/unit and/or counseling patient: Coding Level of Care Code 45528 INT INP/OBS CARE 375MIN Diagnoses Hyperkalemia, diminished renal excretion E87.5 Acute kidney injury N17.9 Chronic heart failure with preserved ejection fraction I50.32 Heart failure chronicity: chronic Coronary artery disease involving [place] coronary artery of [place] heart without angina pectoris I25.10 Coronary Disease-Associated Artery/Lesion type: [place] artery [place] vs. transplanted heart: [place] heart Associated angina: without angina Cardiomyopathy I42.9 Primary hypertension I10 Hypertension type: primary hypertension (3) (HFpEF) heart failure with preserved ejection fraction Heart failure chronicity: chronic Qualified Code(s): I50.32 - Chronic diastolic (congestive) heart failure (4) Coronary artery disease Coronary Disease-Associated Artery/Lesion type: [place] artery [place] vs. transplanted heart: [place] heart Associated angina: without angina Qualified Code(s): I25.10 - Atherosclerotic heart disease of [place] coronary artery without angina pectoris (6) Hypertension Hypertension type: primary hypertension Qualified Code(s): I10 - Essential (primary) hypertension
[2024-05-02 21:12] LABS: Albumin Level 3.4 gm/dl (3.4-5.0); BUN Creatinine Ratio 73.2 (10-20); Calcium 8.3 mg/dl (8.6-10.3); Creatinine Clr Calc Pharmacy 39.3 ml/min; Phosphorus 4.4 mg/dl (2.5-4.9); Potassium 5.6 mmol/L (3.5-5.1)
--- NOTE | 2024-05-02 22:42 | Electrocardiogram Report ---
Test Reason : Blood Pressure : */* mmHG Vent. Rate : 56 BPM Atrial Rate : 56 BPM P-R Int : 166 ms QRS Dur : 82 ms QT Int : 426 ms P-R-T Axes : 18 -27 -54 degrees QTcB Int : 411 ms Sinus bradycardia Minimal voltage criteria for LVH, may be normal variant ( R in aVL ) Poor R wave progression, consider anterior MS vs. lead placement vs. LVH T wave abnormality, consider inferolateral ischemia Abnormal ECG When compared with ECG of 13-Apr-2023 15:41, Premature ventricular complexes are no longer Present Confirmed by Surya Blum ([id number]) on 05/02/2024 10:41:53 PM Referred By: Confirmed By: Surya Blum
[2024-05-03] MEDS ORDERED: ACETAMINOPHEN 325 MG TAB PO PRN (00:47)
[2024-05-03 04:33] VITALS: RESP 18
[2024-05-03 07:24] LABS: Basophils # (auto) 0.02 K/uL (0.00-0.20); Basophils % (auto) 0.4 %; Eosinophils # (auto) 0.08 K/uL (0.00-0.50); Eosinophils % (auto) 1.8 %; Hematocrit (blood only) 31.6 % (37.0-47.0); Hemoglobin 10.4 g/dl (12.0-16.0); Immature Granulocytes # (auto) 0.01 K/uL (0.01-0.20); Immature Granulocytes % (auto) 0.2 %; Lymphocytes # (auto) 1.39 K/uL (1.20-3.40); Lymphocytes % (auto) 30.5 %; Mean Corpuscular Hemoglobin 29.9 pg (25.0-34.0); Mean Corpuscular Hgb Conc 32.9 g/dL (32.0-36.0); Mean Corpuscular Volume 90.8 fL (80.0-100.0); Mean Platelet Volume 12.1 fL (9.4-12.4); Monocytes % (auto) 8.8 %; Neutrophils # (auto) 2.65 K/uL (1.40-6.50); Neutrophils % (auto) 58.3 %; Platelet Count 150 K/uL (130-400); RDW Coefficient of Variation 12.8 % (11.5-14.5); RDW Standard Deviation 42.3 fL (36.4-46.3); Red Blood Count 3.48 M/uL (4.20-5.40); White Blood Count 4.55 K/ul (4.8-10.8)
[2024-05-03 07:47] LABS: Albumin Globulin Ratio 1.4 (0.9-2); Albumin Level 3.3 gm/dl (3.4-5.0); BUN Creatinine Ratio 70.4 (10-20); Bilirubin,Total 0.4 mg/dl (0.2-1.0); Calcium 8.6 mg/dl (8.6-10.3); Creatinine Clr Calc Pharmacy 41.8 ml/min; Globulin 2.4 gm/dl (2.5-4.0); Magnesium 2.4 mg/dl (1.7-2.4); Potassium 5.4 mmol/L (3.5-5.1); Total Protein 5.7 gm/dl (6.0-8.3)
[2024-05-03 08:29] VITALS: BP 158/80; TEMP 97.7; O2SAT 97
[2024-05-03] MEDS: CLOPIDOGREL BISULFATE 75 MG TAB PO SCH (10:04)
[2024-05-03] MEDS: ADVANCED PROBIOTIC 625 MG CAPSULE PO SCH (10:04)
[2024-05-03] MEDS: METOPROLOL SUCC 50MG EXT REL TAB PO SCH (10:05)
[2024-05-03] MEDS: VALSARTAN 80 MG TAB PO SCH (10:05)
[2024-05-03] MEDS: FAMOTIDINE 10 MG TABLET PO SCH (10:05)
[2024-05-03] MEDS: ROSUVASTATIN CALCIUM 20 MG TAB PO SCH (10:06)
[2024-05-03 11:32] VITALS: PULSE 62
--- NOTE | 2024-05-03 14:51 | Discharge Summary ---
Date of Service May 03, 2024 Admission HPI Per Admitting Provider The patient is a 78-year-old female with a past medical history including HFpEF, CAD, lower extremity edema, right breast cancer, cardiomyopathy, hypertension, Mnire's disease and list dyslipidemia. She reports dealing with chronic generalized fatigue and lower extremity edema over the past few weeks, and had medication adjustment in the outpatient setting to address this. She most recently was started on Bumex and potassium. She was having some generalized weakness symptoms upon visit to the cardiology office afternoon, and routine laboratories we will potassium 5.9 with an increased creatinine. She was then advised to come to the ED for assessment. Admission Exam (Per Admitting) Constitutional The patient is awake, alert and oriented 3, well developed and well nourished, normocephalic and atraumatic, lying in bed and in no acute distress. HEENT--PERRL, EOMI, mucous membranes and oropharynx mildly dry Neck--supple. No JVD. No bruits. Thyroid normal, trachea midline, no adenopathy. Heart--normal S1 and S2. No murmurs, rubs or gallops. Lungs--clear bilaterally, no respiratory distress, no accessory muscle use. Abdomen--normal bowel sounds and soft. Extremities--no cyanosis or clubbing. No edema. Dermatologic--normal skin turgor, normal color, no abnormal lymph nodes, no rash. Neurologic--cranial nerves II through XII grossly intact. Rheumatologic--normal range of motion. Psychiatric--normal affect. Discharge Data Consultations 05/02/24 18:33 ED Decision to Admit Stat Hospital Course (1) Hyperkalemia, diminished renal excretion: (2) Acute kidney injury: (3) (HFpEF) heart failure with preserved ejection fraction: (4) Coronary artery disease: (5) Cardiomyopathy: (6) Hypertension: Plan Hyperkalemia/acute kidney injury- Creatinine 1.46, with base 0.67 Potassium 5.7 on admission Status post 1 L normal saline bolus, and calcium gluconate 1 g IV from the ED Check a renal function panel this evening, and further adjustment in treatment as needed Serial CBC with differential, renal function panel and magnesium level every morning Hold Bumex, valsartan and potassium chloride supplements K 5.3 on discharge asked to hold valsartan and potassium supplements until she sees cardiology asked to recheck BMP in 1 week CAD/hypertension/HFpEF/cardiomyopathy- The patient will be admitted to telemetry for serial cardiac enzymes, serial EKG's, cardiac rhythm monitoring and a 2-D echocardiogram with Dopplers. Most recent echocardiogram on 04/14/2023 with ejection fraction 50-55% Holding Bumex, valsartan and potassium chloride as noted Continue clopidogrel, metoprolol succinate Hyperlipidemia- Continue rosuvastatin Coding Level of Care Code 17574 INP/OBS DISCH >30 MIN Diagnoses Hyperkalemia, diminished renal excretion E87.5 Acute kidney injury N17.9 Chronic heart failure with preserved ejection fraction I50.32 Heart failure chronicity: chronic Coronary artery disease involving [place] coronary artery of [place] heart without angina pectoris I25.10 Coronary Disease-Associated Artery/Lesion type: [place] artery [place] vs. transplanted heart: [place] heart Associated angina: without angina Cardiomyopathy I42.9 Primary hypertension I10 Hypertension type: primary hypertension Time Spent (min) 35
--- NOTE | 2024-05-03 22:34 | Electrocardiogram Report ---
Test Reason : Blood Pressure : */* mmHG Vent. Rate : 54 BPM Atrial Rate : 54 BPM P-R Int : 184 ms QRS Dur : 84 ms QT Int : 428 ms P-R-T Axes : 70 -7 -42 degrees QTcB Int : 405 ms Sinus bradycardia Low voltage QRS Cannot rule out Anterior infarct (cited on or before 13-Apr-2023) T wave abnormality, consider inferolateral ischemia Abnormal ECG When compared with ECG of 02-May-2024 15:51, No significant change Confirmed by Surya Blum ([id number]) on 05/03/2024 10:34:03 PM Referred By: REFERRED SELF Confirmed By: Surya Blum
== END 2024-05-03 12:14 | disposition home or self-care (01) | DRG 683 ==
LOC: ED 15:27 → EDINP 21:42 → SUATTDRO 21:42 → 2E 05-03 00:48

== ENCOUNTER 2024-05-13 12:24 | Inpatient (IN) ==
[2024-05-13 13:05] LABS: Albumin Level 3.4 gm/dl (3.4-5.0); Bilirubin,Total 0.6 mg/dl (0.2-1.0); Calcium 8.5 mg/dl (8.6-10.3); Potassium 4.6 mmol/L (3.5-5.1)
[2024-05-13 13:11] LABS: Albumin Globulin Ratio 1.4 (0.9-2); BUN Creatinine Ratio 58.4 (10-20); Creatinine Clr Calc Pharmacy 38.8 ml/min; Globulin 2.5 gm/dl (2.5-4.0); Total Protein 5.9 gm/dl (6.0-8.3)
[2024-05-13 13:18] LABS: Basophils # (auto) 0.02 K/uL (0.00-0.20); Basophils % (auto) 0.3 %; Eosinophils # (auto) 0.02 K/uL (0.00-0.50); Eosinophils % (auto) 0.3 %; Hematocrit (blood only) 29.4 % (37.0-47.0); Hemoglobin 9.7 g/dl (12.0-16.0); Immature Granulocytes # (auto) 0.01 K/uL (0.01-0.20); Immature Granulocytes % (auto) 0.2 %; Lymphocytes % (auto) 20.7 %; Mean Corpuscular Hemoglobin 29.5 pg (25.0-34.0); Mean Corpuscular Volume 89.4 fL (80.0-100.0); Monocytes # (auto) 0.44 K/uL (0.11-0.59); Monocytes % (auto) 7.6 %; Neutrophils # (auto) 4.12 K/uL (1.40-6.50); Neutrophils % (auto) 70.9 %; Platelet Count 134 K/uL (130-400); RDW Coefficient of Variation 12.8 % (11.5-14.5); RDW Standard Deviation 41.6 fL (36.4-46.3); Red Blood Count 3.29 M/uL (4.20-5.40); White Blood Count 5.81 K/ul (4.8-10.8)
[2024-05-13 13:19] LABS: INR 0.9 (0.9-1.1); Partial Thromboplastin Ratio 0.9; Partial Thromboplastin Time 25 Seconds (21-31); Prothrombin Time 10.2 Seconds (9.0-12.0)
--- NOTE | 2024-05-13 13:34 | XRay Report ---
XR chest 1V not portable CLINICAL HISTORY: Shortness of breath. COMPARISON STUDY: Chest CT February 27, 2024. Chest radiograph May 02, 2024. FINDINGS: There is no pneumothorax. Small bilateral pleural effusions have developed since prior exam . Moderate cardiomegaly is again noted. There is pulmonary vascular congestion without overt pulmonar y edema. Mild bibasilar opacities favor atelectasis. IMPRESSION: 1. Cardiomegaly with pulmonary vascular congestion. 2. Interval development of small bilateral pleural effusions. Associated bibasilar opacities favor at electasis. ACT 112: Negative or not required by law. Electronically signed by: Noah London M.D. 05/13/2024 1:33 PM
--- NOTE | 2024-05-13 15:11 | Electrocardiogram Report ---
Test Reason : Blood Pressure : */* mmHG Vent. Rate : 85 BPM Atrial Rate : 85 BPM P-R Int : 180 ms QRS Dur : 78 ms QT Int : 354 ms P-R-T Axes : 24 -11 66 degrees QTcB Int : 421 ms Sinus rhythm with occasional Premature ventricular complexes and Premature atrial complexes Cannot rule out Anterior infarct (cited on or before 13-Apr-2023) Abnormal ECG When compared with ECG of 03-May-2024 06:09, Premature ventricular complexes are now Present Premature atrial complexes are now Present Vent. rate has increased by 31 bpm Confirmed by Michael Morales ([id number]) on 05/13/2024 3:11:08 PM Referred By: Confirmed By: Michael Morales
[2024-05-13] MEDS: BUMETANIDE 1 MG in SYRINGE 0 ML IV ONE (15:52)
--- NOTE | 2024-05-13 15:55 | Emergency Department Note ---
Impression & Plan CHF (congestive heart failure) ED Provider Note NAME: JESSICA SZYMANSKI AGE: 78 SEX: Female INFORMANT: Patient ED PROVIDER(S): Davis Mar MD CHIEF COMPLAINT: Dehydration PLAN: Disposition: Admitted Outpatient prescription management: none Referral: None MEDICAL DECISION MAKING: Patient was evaluated. She has about 7 pounds of weight gain. Her BNP is markedly elevated, much more than prior. She is hypertensive. She does have pulmonary edema on chest x-ray. She has abdominal fullness, lower extremity edema and mild JVD on examination. She is pending a cardiac echo. Patient was given IV Bumex 1 mg. I did order one and discussed the patient's case with on- call cardiology, Dr. Morales. Given time of day patient will have her echo done first thing in the morning. [facility] Patient was evaluated in the ER admitted for further management. Care/management discussed with: none Level of care consideration(s): After review of the information above and other included data, I feel the patient can be managed safely as an outpatient/could have required admission but improved significantly and is stable for discharge/requires escalation of care to admission. Triage Nursing notes: reviewed and agree them. Vital Signs: reviewed and remarkable for no significant abnormalities Additional History obtained from: none Chronic Medical/Social Conditions affecting care: CHF Prior/ Outside/ External records reviewed: PCP note from today reviewed. Patient referred to the ER. Differential Diagnosis: CHF,Reactive airway disease, pneumonia, pneumothorax, COPD, CKD, infections, cardiac ischemia, pulmonary embolism, musculoskeletal, gastrointestinal, as well as other pathologies. Diagnostics, independently interpreted by me: EC-lead ECG was sinus rhythm at 85 bpm with PACs. Poor progression. No ST elevation. Cardiac Monitoring: Cardiac monitoring ordered by me: The patient was placed on continuous cardiac monitoring and observed. It revealed a sinus rhythm with PVCs at 75 bpm. Medical decision rules: none Imaging studies: Chest x-ray reveals mild pulmonary edema and for vascular congestion. I refer you to the EMR for further details. HPI: 78 year old Female arrives for evaluation of possible dehydration. Patient was admitted to the hospital 2 weeks ago due to CKD and hyperkalemia. She was taken off her diuretic as well as her blood pressure medication. She had follow-up with her PCP today. Outpatient blood work showed improvement of her creatinine and potassium. Patient did have an elevated BUN to creatinine ratio. She noted edema in the lower extremities as well as in her stomach. She had some shortness of breath with dyspnea on exertion. She notes about at least 7 pound weight gain. She is currently not taking any diuretics. She notes her blood pressure typically runs around 120-130 systolic. On arrival she was 172/90. Patient was hypertensive during her time in the hospital as well. Patient states that her oracle business analyst, Dr. Brandt had scheduled her for venous mapping and echocardiogram this week. She was seen by her PCP today and referred to the ER. She has had poor appetite and weakness. She notes headaches as well. Pt denies LOC, fevers, chills, diaphoresis, visual changes, neck pain, chest pain,vomiting, abdominal pain, back pain, melena, hematochezia, urinary symptoms, numbness, lymphadenopathy, rash, or other complaints. PAST MEDICAL HISTORY: CHF,, CKD, see below PAST SURGICAL HISTORY: See Below, SOCIAL HISTORY: See Below, former smoker HOME MEDICATIONS: See Below ALLERGIES: See Below VITALS: See Below PHYSICAL EXAMINATION: GENERAL: Awake, alert, age-appropriate -appearing, in no distress HENT: Normocephalic, atraumatic. Oropharynx unremarkable. EYES: Normal conjunctiva. Sclera non-icteric. NECK: Inspection normal. Non-tender. Supple. No nuchal rigidity. FROM. No masses. RESPIRATORY: Few scattered rales and diminished in the bases otherwise clear to auscultation. No wheezes. Normal respiratory effort. CARDIAC: Normal rate. Normal rhythm. No murmurs. No rubs. Extremities warm and well perfused. Pulses equal. Mild JVD. GI: Soft, non-distended. No tenderness to palpation. No rebound or guarding. No masses. RECTAL: Deferred. MUSCULOSKELETAL: Atraumatic. Chest examination reveals no tenderness. The back is symmetrical on inspection without obvious abnormality. There is no CVA tenderness to palpation. No joint edema. LOWER EXTREMITIES: Calves are equal size bilaterally and non-tender. 1-2+ edema. No discoloration. NEURO: Normal sensorium. No sensory or motor deficits noted. SKIN: No rash or jaundice noted. PROCEDURES: none CRITICAL CARE: none OBSERVATION NOTE: none Past Med/Surg History Problem List (Updated 12/30/24 @ 15:55 by Davis Mar MD) CHF (congestive heart failure) (Acute) [place] (acute kidney injury) (Acute) Acute hyperkalemia (Acute) Hyperkalemia, diminished renal excretion Acute kidney injury CHF exacerbation (HFpEF) heart failure with preserved ejection fraction Coronary artery disease Elevated brain natriuretic peptide (BNP) level (Acute) Elevated troponin (Acute) Chest pressure (Acute) AUGUST (dyspnea on exertion) (Acute) Abnormal electrocardiogram Chest pain Leg pain Right leg swelling Chronic diarrhea Cholelithiasis Malignant neoplasm of upper-outer quadrant of right breast in female, estrogen receptor positive (Chronic 12/10/19) Coronary artery calcification Cardiomyopathy Hypertension Tachycardia Dyspnea Lower extremity edema Mitral valve prolapse Per cardiology 02/28/19, prolapse with minimal MR seen on 2013 echo (done in [place], no echo on file). No murmur noted on exam at [facility]. History of tobacco abuse Dyslipidemia (Chronic) Menieres disease (Chronic) Benign cystic nephroma Heart disease Abnormal electrocardiogram T wave inversion in V1-V6; had full cardiac workup including heart cath in 2013 in [place]. Now follows annually with Dr. Camarillo. Denies any chest pain. Medical History History of bronchitis Allergic rhinitis Angioma Benign nevus of skin Lentigines Seborrheic keratosis Xerosis of skin Hearing loss Meniere's disease Non-occlusive coronary artery disease Left renal mass Surgical History Status post breast lumpectomy History of tooth extraction History of cataract surgery History of colonoscopy History of cardiac cath Hx of partial nephrectomy Family History Mother Colon cancer Stroke Myocardial infarction Brother Cancer Father Hypertension Other Coronary heart disease Denies family history of Ovarian cancer Prostate cancer Breast cancer Lung cancer Social History Smoking Status: Former smoker Tobacco Type: Cigarettes Age Started Using Tobacco: 20; Age Quit Using Tobacco: 58; packs per day: 0.5; Cigarettes Per Day: 10; Second Hand Exposure: No; Do You Dip or Chew Tobacco: No; Hx Alcohol Use: No Hx Substance Use: No Preferred Language: Romanian Communication Ability: Effective Communication Ability Comment: HARD OF HEARING Visual Impairment: Diminished Hearing Ability: Use of Hearing Aid Memory Care Program Resident Required: No Beliefs That Will Affect Care: None marital status: marital status details: spouse is paraplegic, housebound Current Living Situation: Spouse Current Living Situation Comment: at home with current occupational status: retired 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 [employer] How many Children do You have: 0 other: vision: nearsighted after cataract surgery, wears reading glasses Feels Safe at Home: Yes Childhood Exposure to Second-Hand Smoke: Yes Diet: low salt caffeine: Yes Dental Care, Regularly: Yes Physical Activity Frequency: Daily Physical Activity Frequency Comment: walks her dog twice daily Seatbelt Use: always Sunscreen Use: Yes Assistive Devices: None Allergies Allergies Allergy/AdvReac Type Severity Reaction Status Date / Time poison inderjit extract Allergy Intermediate AIRBORNE Verified 05/13/24 11:38 OR CONTACT-WELTS, WEEPING LESIONS poison oak extract Allergy Intermediate AIRBORNE Verified 05/13/24 11:38 OR CONTACT-WELTS, WEEPING LESIONS aspirin Allergy Mild ITCHING Verified 05/13/24 11:38 anastrozole Allergy Unknown Verified 05/13/24 11:38 spironolactone AdvReac Intermediate "wicked Verified 05/13/24 11:38 headache" garlic AdvReac Diarrhea Verified 05/13/24 11:38 lactase [From Dairy Aid] AdvReac Diarrhea Verified 05/13/24 11:38 onion AdvReac Diarrhea Verified 05/13/24 11:38 Home Meds Home Medications Medication Instructions Recorded Confirmed famotidine 10 mg tablet (Pepcid AC) 10 mg PO DAILY PRN Other 08/17/23 05/13/24 Previous Rx's Medication Instructions Recorded metoprolol succinate 50 mg 50 mg PO DAILY #90 tabs 10/10/23 tablet,extended release 24 hr clopidogrel 75 mg tablet 75 mg PO DAILY #90 tabs 04/01/24 potassium chloride 20 mEq 20 meq PO DAILY PRN Days taking 04/19/24 tablet,extended release torsemide #90 tabs bumetanide 1 mg tablet 1 mg PO DAILY PRN edema #30 tabs 04/24/24 rosuvastatin 20 mg tablet 20 mg PO DAILY #90 tabs 05/02/24 valsartan 40 mg tablet 40 mg PO QAM #90 tabs 05/02/24 Results & Data (ED) Vital Signs Vital Signs - 24 hr 05/13/24 12:26 05/13/24 15:46 05/13/24 16:21 Temperature 36.8 C Temperature Source Skin Pulse Rate 89 67 Pulse Rate [Apical] 75 Respiratory Rate 18 22 Respiratory Depth Normal Blood Pressure 172/100 H Blood Pressure [Left Arm] 172/90 H Blood Pressure Mean 124 Blood Pressure Mean [Left Arm] 117 Pulse Oximetry 97 96 Oxygen Delivery Method Room Air Room Air Sepsis Recent Fever Within 48 Hours No Sepsis New/Unexplained Change in Mental Status No Sepsis Action Taken by Nursing No Action Required Laboratory Data 05/14/24 05:55 05/14/24 05:55 Lab Results 05/13/24 05/13/24 Range/Units 12:36 15:47 WBC 5.81 (4.8-10.8) K/ul RBC 3.29 L (4.20-5.40) M/uL Hgb 9.7 L (12.0-16.0) g/dl Hct 29.4 L (37.0-47.0) % MCV 89.4 (80.0-100.0) fL MCH 29.5 (25.0-34.0) pg MCHC 33.0 (32.0-36.0) g/dL RDW Std Deviation 41.6 (36.4-46.3) fL RDW Coeff of Valerie 12.8 (11.5-14.5) % Plt Count 134 (130-400) K/uL MPV 12.0 (9.4-12.4) fL Immature Gran % (Auto) 0.2 % Neut % (Auto) 70.9 % Lymph % (Auto) 20.7 % [place] % (Auto) 7.6 % Eos % (Auto) 0.3 % Baso % (Auto) 0.3 % Neut # (Auto) 4.12 (1.40-6.50) K/uL Lymph # (Auto) 1.20 (1.20-3.40) K/uL [place] # (Auto) 0.44 (0.11-0.59) K/uL Eos # (Auto) 0.02 (0.00-0.50) K/uL Baso # (Auto) 0.02 (0.00-0.20) K/uL Immature Gran # (Auto) 0.01 (0.01-0.20) K/uL PT 10.2 (9.0-12.0) Seconds INR 0.9 (0.9-1.1) APTT 25 (21-31) Seconds PTT Ratio 0.9 Sodium 142 (136-145) mmol/L Potassium 4.6 (3.5-5.1) mmol/L Chloride 116 H (98-107) mmol/L Carbon Dioxide 19 L (21-32) mmol/L Anion Gap 7 (3-11) BUN 73 H (6-23) mg/dl Creatinine 1.25 H (0.6-1.2) mg/dl Est Cr Clr Drug Dosing 38.8 ml/min eGFR 44.67 BUN/Creatinine Ratio 58.4 H (10-20) Glucose 112 H (70-99(Fasting)) mg/dl Calcium 8.5 L (8.6-10.3) mg/dl Magnesium 2.8 H (1.7-2.4) mg/dl Total Bilirubin 0.6 (0.2-1.0) mg/dl AST 17 (13-39) U/L ALT 21 (7-52) U/L Alkaline Phosphatase 53 (34-104) U/L B-Natriuretic Peptide 1760 H (0-100) pg/ml Total Protein 5.9 L (6.0-8.3) gm/dl Albumin 3.4 (3.4-5.0) gm/dl Globulin 2.5 (2.5-4.0) gm/dl Albumin/Globulin Ratio 1.4 (0.9-2) Adenovirus (PCR) Not Detected (NotDetected) B. pertussis DNA (PCR) Not Detected (NotDetected) B.parapertussis DNA PCR Not Detected (NotDetected) C. pneumoniae DNA (PCR) Not Detected (NotDetected) Coronavirus OC43 (PCR) Not Detected (NotDetected) Coronavirus HKU1 (PCR) Not Detected (NotDetected) Coronavirus 229E (PCR) Not Detected (NotDetected) SARS-CoV-2 (PCR) Not Detected (NotDetected) Coronavirus NL63 (PCR) Not Detected (NotDetected) Human Metapneumovir PCR Not Detected (NotDetected) Influenza Type A (PCR) Not Detected (NotDetected) Influenza Type B (PCR) Not Detected (NotDetected) M. pneumoniae (PCR) Not Detected (NotDetected) Parainfluenza 1 (PCR) Not Detected (NotDetected) Parainfluenza 2 (PCR) Not Detected (NotDetected) Parainfluenza 3 (PCR) Not Detected (NotDetected) Parainfluenza 4 (PCR) Not Detected (NotDetected) RSV (PCR) Not Detected (NotDetected) Entero/Rhino (PCR) Not Detected (NotDetected) Administered Medications Acetaminophen (Acetaminophen 325 Mg Tab) 650 mg PO Q4H PRN PRN Reason: Pain or Fever Stop: 06/12/24 17:44 Last Admin: 05/14/24 11:04 Dose: 650 mg Documented By: Admin: 05/13/24 20:13 Dose: 650 mg Documented By: EMMA Clopidogrel Bisulfate (Clopidogrel Bisulfate 75 Mg Tab) 75 mg PO DAILY [facility] Stop: 06/13/24 08:59 Last Admin: 05/14/24 08:04 Dose: 75 mg Documented By: PAMELA Heparin Sodium (Porcine) (Heparin Sod 5,000 Unit/0.5 Ml Vial) 5,000 units SQ Q8 [facility] Stop: 06/12/24 21:59 Last Admin: 05/14/24 20:19 Dose: Not Given Documented By: Admin: 05/14/24 19:27 Dose: 5,000 units Documented By: Admin: 05/14/24 16:39 Dose: 5,000 units Documented By: Admin: 05/13/24 23:05 Dose: Not Given Documented By: Admin: 05/13/24 23:04 Dose: Not Given Documented By: ROSIE Hydralazine HCl (Hydralazine Hcl 20 Mg/Ml Vial) 10 mg IV Q6 PRN PRN Reason: sbp>170 or dbp>95 Stop: 06/12/24 18:09 Last Admin: 05/13/24 22:13 Dose: 10 mg Documented By: EMMA Hydralazine HCl (Hydralazine Tab 50 Mg Tab) 50 mg PO TID [facility] Stop: 06/13/24 20:59 Last Admin: 05/14/24 19:26 Dose: 50 mg Documented By: ROSIE Metoprolol Succinate (Metoprolol Succ 50mg Ext Rel Tab) 50 mg PO DAILY [facility] Stop: 06/13/24 08:59 Last Admin: 05/14/24 08:04 Dose: 50 mg Documented By: PAMELA Pantoprazole Sodium (Pantoprazole 40 Mg Tab) 40 mg PO QAM [facility] Stop: 06/13/24 11:59 Last Admin: 05/14/24 13:46 Dose: 40 mg Documented By: PAMELA Potassium Chloride (Potassium Chloride Crtab 20 Meq Tabcr) 20 meq PO DAILY ABHINAV Stop: 06/13/24 08:59 Last Admin: 05/14/24 08:06 Dose: 20 meq Documented By: PAMELA Rosuvastatin Calcium (Rosuvastatin Calcium 20 Mg Tab) 20 mg PO DAILY ABHINAV Stop: 06/13/24 08:59 Last Admin: 05/14/24 08:05 Dose: 20 mg Documented By: PAMELA Discontinued Medications Alprazolam (Alprazolam 0.25 Mg Tablet) 0.25 mg PO NOW STA Stop: 05/14/24 12:00 Last Admin: 05/14/24 12:20 Dose: 0.25 mg Documented By: PAMELA Famotidine (Famotidine 10 Mg Tablet) 10 mg PO DAILY PRN PRN Reason: heartburn Stop: 06/12/24 17:53 Last Admin: 05/13/24 23:07 Dose: 10 mg Documented By: ROSIE Hydralazine HCl (Hydralazine Tab 50 Mg Tab) 50 mg PO BID [facility] Stop: 06/13/24 08:59 Last Admin: 05/14/24 09:46 Dose: 50 mg Documented By: PAMELA Bumetanide 1 mg/ Syringe 4 mls @ 4 mls/min IV ONE ONE Stop: 05/13/24 15:23 Last Admin: 05/13/24 15:52 Dose: 4 mls/min Documented By: EMMA Bumetanide 1 mg/ Syringe 4 mls @ 4 mls/min IV DAILY [facility]HIN[facility] Stop: 06/13/24 08:59 Last Admin: 05/14/24 08:05 Dose: 4 mls/min Documented By: PAMELA Imaging Data Radiologist's Impression: Chest X-Ray 05/13/24 12:29 XR chest 1V not portable CLINICAL HISTORY: Shortness of breath. COMPARISON STUDY: Chest CT February 27, 2024. Chest radiograph May 02, 2024. FINDINGS: There is no pneumothorax. Small bilateral pleural effusions have developed since prior exam. Moderate cardiomegaly is again noted. There is pulmonary vascular congestion without overt pulmonary edema. Mild bibasilar opacities favor atelectasis. IMPRESSION: 1. Cardiomegaly with pulmonary vascular congestion. 2. Interval development of small bilateral pleural effusions. Associated bibasilar opacities favor atelectasis. ACT 112: Negative or not required by law. Electronically signed by: Noah London M.D. 05/13/2024 1:33 PM Discharge Plan Visit Data Chief Complaint: Dehydration Stated Complaint: DEHYDRATION ED Provider: Davis Mar Discharge Problem: CHF (congestive heart failure) Patient Disposition: Admitted As Inpatient Discharge Instructions Interventions: ED Discharge Assessment Last Done: 05/13/24 20:44
[2024-05-13 16:45] LABS: Adenovirus PCR Not Detected (NotDetected); Bordetella parapertussis PCR Not Detected (NotDetected); Bordetella pertussis PCR Not Detected (NotDetected); Chlamydia pneumoniae PCR Not Detected (NotDetected); Coronavirus 229E PCR Not Detected (NotDetected); Coronavirus CoV-2 (COVID19)PCR Not Detected (NotDetected); Coronavirus HKU1 PCR Not Detected (NotDetected); Coronavirus NL63 PCR Not Detected (NotDetected); Coronavirus OC43PCR Not Detected (NotDetected); Human Metapneumovirus PCR Not Detected (NotDetected); Influenza A PCR Not Detected (NotDetected); Influenza B PCR Not Detected (NotDetected); Mycoplasma pneumoniae PCR Not Detected (NotDetected); Parainfluenza Virus 1 PCR Not Detected (NotDetected); Parainfluenza Virus 2 PCR Not Detected (NotDetected); Parainfluenza Virus 3 PCR Not Detected (NotDetected); Parainfluenza Virus 4 PCR Not Detected (NotDetected); Respiratory Syncytial VirusPCR Not Detected (NotDetected); Rhinovirus/Enterovirus PCR Not Detected (NotDetected)
[2024-05-13] MEDS ORDERED: ALUMINUM/MAGNESIUM SUSP 30 ML UDC PO PRN (17:45)
[2024-05-13] MEDS ORDERED: ONDANSETRON INJ 2 MG/ML 2 ML VIAL IV PRN (17:45)
[2024-05-13] MEDS ORDERED: POTASSIUM CHLORIDE CRTAB 20 MEQ TABCR PO PRN (17:54)
[2024-05-13 18:54] LABS: Hematocrit (blood only) 28.8 % (37.0-47.0); Hemoglobin 9.6 g/dl (12.0-16.0); Mean Corpuscular Hemoglobin 29.5 pg (25.0-34.0); Mean Corpuscular Hgb Conc 33.3 g/dL (32.0-36.0); Mean Corpuscular Volume 88.6 fL (80.0-100.0); Platelet Count 112 K/uL (130-400); RDW Coefficient of Variation 12.8 % (11.5-14.5); RDW Standard Deviation 41.5 fL (36.4-46.3); Red Blood Count 3.25 M/uL (4.20-5.40); White Blood Count 5.28 K/ul (4.8-10.8)
[2024-05-13 19:06] LABS: Magnesium 2.8 mg/dl (1.7-2.4)
--- NOTE | 2024-05-13 19:35 | History & Physical Report ---
Date of Service May 13, 2024 Assessment & Plan (1) (HFpEF) heart failure with preserved ejection fraction: Plan: Acute exacerbation of HFpEF likely due to uncontrolled hypertension Rec tele, continue IV diuresis, monitor renal function and electrolytes Echo in AM Uncontrolled hypertension Monitor and adjust regimen for optimal control [place] Minimal elevation in creatinine sec to CHF exacerbation and uncontrolled hypertension Avoid unnecessary nephrotoxins Monitor BMP Low sodium diet OOB as tolerated DVT Px Full code History of Present Illness Chief Complaint: Shortness of breath Primary Care Provider: Jacob Victoria DO Patient is a 78 y/o female with h/o HFpEF presented to ED c/o shortness of breath, LE edema, abdominal bloating, decreased appetite and easy fatigue. She reports compliance with her med regimen and denies increased salt or fluid intake. She denies associated chest pain, palpitations, lightheadedness or fever but was experiencing chills. She reports improvement in her symptoms after IV Bumex in ED. Allergies Allergy/AdvReac Type Severity Reaction Status Date / Time poison inderjit extract Allergy Intermediate AIRBORNE Verified 05/13/24 11:38 OR CONTACT-WELTS, WEEPING LESIONS poison oak extract Allergy Intermediate [place] Verified 05/13/24 11:38 OR CONTACT-WELTS, WEEPING LESIONS aspirin Allergy Mild ITCHING Verified 05/13/24 11:38 anastrozole Allergy Unknown Verified 05/13/24 11:38 spironolactone AdvReac Intermediate "wicked Verified 05/13/24 11:38 headache" garlic AdvReac Diarrhea Verified 05/13/24 11:38 lactase [From Dairy Aid] AdvReac Diarrhea Verified 05/13/24 11:38 onion AdvReac Diarrhea Verified 05/13/24 11:38 Home Medications Medication Instructions Recorded Confirmed Type famotidine 10 mg tablet (Pepcid AC) 10 mg PO DAILY PRN Other 08/17/23 05/13/24 History metoprolol succinate 50 mg 50 mg PO DAILY #90 tabs 10/10/23 05/13/24 Rx tablet,extended release 24 hr clopidogrel 75 mg tablet 75 mg PO DAILY #90 tabs 04/01/24 05/13/24 Rx potassium chloride 20 mEq 20 meq PO DAILY PRN Days taking 04/19/24 05/13/24 Rx tablet,extended release torsemide #90 tabs bumetanide 1 mg tablet 1 mg PO DAILY PRN edema #30 tabs 04/24/24 05/13/24 Rx rosuvastatin 20 mg tablet 20 mg PO DAILY #90 tabs 05/02/24 05/13/24 Rx valsartan 40 mg tablet 40 mg PO QAM #90 tabs 05/02/24 05/13/24 Rx Past Med/Surg History Problem List (Updated 05/13/24 @ 15:55 by Davis Mar MD) CHF (congestive heart failure) (Acute) [place] (acute kidney injury) (Acute) Acute hyperkalemia (Acute) Hyperkalemia, diminished renal excretion Acute kidney injury CHF exacerbation (HFpEF) heart failure with preserved ejection fraction Coronary artery disease Elevated brain natriuretic peptide (BNP) level (Acute) Elevated troponin (Acute) Chest pressure (Acute) AUGUST (dyspnea on exertion) (Acute) Abnormal electrocardiogram Chest pain Leg pain Right leg swelling Chronic diarrhea Cholelithiasis Malignant neoplasm of upper-outer quadrant of right breast in female, estrogen receptor positive (Chronic 12/10/19) Coronary artery calcification Cardiomyopathy Hypertension Tachycardia Dyspnea Lower extremity edema Mitral valve prolapse Per cardiology 02/28/19, prolapse with minimal MR seen on 2013 echo (done in [place], no echo on file). No murmur noted [facility] exam at [facility]. History of tobacco abuse Dyslipidemia (Chronic) Menieres disease (Chronic) Benign cystic nephroma Heart disease Abnormal electrocardiogram T wave inversion in V1-V6; had full cardiac workup including heart cath in 2013 in [place]. Now follows annually with Dr. Camarillo. Denies any chest pain. Medical History History of bronchitis Allergic rhinitis Angioma Benign nevus of skin Lentigines Seborrheic keratosis Xerosis of skin Hearing loss Meniere's disease Non-occlusive coronary artery disease Left renal mass Surgical History Status post breast lumpectomy History of tooth extraction History of cataract surgery History of colonoscopy History of cardiac cath Hx of partial nephrectomy Family History Mother Colon cancer Stroke Myocardial infarction Brother Cancer Father Hypertension Other Coronary heart disease Denies family history of Ovarian cancer Prostate cancer Breast cancer Lung cancer Social History Smoking Status: Former smoker Tobacco Type: Cigarettes Age Started Using Tobacco: 20; Age Quit Using Tobacco: 58; packs per day: 0.5; Cigarettes Per Day: 10; Second Hand Exposure: No; Do You Dip or Chew Tobacco: No; Hx Alcohol Use: No Hx Substance Use: No Preferred Language: Chilean Communication Ability: Effective Communication Ability Comment: HARD OF HEARING Visual Impairment: Diminished Hearing Ability: Use of Hearing Aid Medical Billing Supervisor Required: No Beliefs That Will Affect Care: None marital status: marital status details: spouse is paraplegic, housebound Current Living Situation: Spouse Current Living Situation Comment: at home with current occupational status: retired 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 [employer] How many Children do You have: 0 other: vision: nearsighted after cataract surgery, wears reading glasses Feels Safe at Home: Yes Childhood Exposure to Second-Hand Smoke: Yes Diet: low salt caffeine: Yes Dental Care, Regularly: Yes Physical Activity Frequency: Daily Physical Activity Frequency Comment: walks her dog twice daily Seatbelt Use: always Sunscreen Use: Yes Assistive Devices: None Physical Exam Physical Exam: AAO#3, Non focal Lungs b/l basal crackles Heart RRR, LE Edema PA Soft, NT, ND, BS+ Skin no rash Results & Data Results & Data Vital Signs (Past 12 Hours) Vital Signs Temp Pulse Pulse Resp BP BP Pulse Ox 05/13/24 18:51 05/13/24 18:51 36.5 C 78 18 168/100 H 95 05/13/24 16:21 67 05/13/24 15:46 75 22 172/90 H 96 05/13/24 12:26 36.8 C 89 18 172/100 H 97 O2 Del Method 05/13/24 18:51 Room Air 05/13/24 18:51 Room Air 05/13/24 16:21 05/13/24 15:46 Room Air 05/13/24 12:26 Room Air Laboratory Results reviewed Diagnostic Findings reviewed Medications Administered IV BUMEX Code Status & VTE Plan VTE Prophylaxis Plan VTE Prophylaxis will be ordered: Yes PG Care Time/CCT Total # of Minutes Spent Total Time Spent with Patient: Total time spent is greater than 50% in coordination of care (as documented) at patient's floor/unit and/or counseling patient: Coding Level of Care Code 41211 INT INP/OBS CARE MIN Diagnoses Chronic heart failure with preserved ejection fraction I50.32 Heart failure chronicity: chronic (1) (HFpEF) heart failure with preserved ejection fraction Heart failure chronicity: chronic Qualified Code(s): I50.32 - Chronic diastolic (congestive) heart failure
[2024-05-13] MEDS: ACETAMINOPHEN 325 MG TAB PO PRN (20:13)
[2024-05-13] MEDS: hydrALAZINE HCL 20 MG/ML VIAL IV PRN (22:13)
[2024-05-13] MEDS: HEPARIN SOD 5,000 UNIT/0.5 ML VIAL SQ SCH (23:04)
[2024-05-13] MEDS: FAMOTIDINE 10 MG TABLET PO PRN (23:07)
[2024-05-14] MEDS ORDERED: ALUMINUM/MAGNESIUM/SIMETH (MAALOX MAX) 30 ML UDC PO PRN (00:23)
[2024-05-14 06:37] LABS: Hematocrit (blood only) 27.7 % (37.0-47.0); Hemoglobin 9.3 g/dl (12.0-16.0); Mean Corpuscular Hemoglobin 29.7 pg (25.0-34.0); Mean Corpuscular Hgb Conc 33.6 g/dL (32.0-36.0); Mean Corpuscular Volume 88.5 fL (80.0-100.0); Platelet Count 110 K/uL (130-400); RDW Standard Deviation 41.7 fL (36.4-46.3); Red Blood Count 3.13 M/uL (4.20-5.40)
[2024-05-14 06:49] LABS: BUN Creatinine Ratio 59.5 (10-20); Calcium 8.1 mg/dl (8.6-10.3); Magnesium 2.6 mg/dl (1.7-2.4); Potassium 4.4 mmol/L (3.5-5.1)
[2024-05-14] MEDS: CLOPIDOGREL BISULFATE 75 MG TAB PO SCH (08:04)
[2024-05-14] MEDS: METOPROLOL SUCC 50MG EXT REL TAB PO SCH (08:04)
[2024-05-14] MEDS: BUMETANIDE 1 MG in SYRINGE 0 ML IV SCH (08:05)
[2024-05-14] MEDS: ROSUVASTATIN CALCIUM 20 MG TAB PO SCH (08:05)
[2024-05-14] MEDS: POTASSIUM CHLORIDE CRTAB 20 MEQ TABCR PO SCH (08:06)
[2024-05-14 09:33] LABS: Folate (Folic Acid),Ser orPlas 15.7 ng/ml (>5.38)
[2024-05-14 09:41] LABS: Ferritin 224.2 ng/ml (8-388)
[2024-05-14] MEDS: hydrALAZINE TAB 50 MG TAB PO SCH ×2 (09:46→19:26)
--- NOTE | 2024-05-14 09:46 | XCELERA ---
[id number]
[2024-05-14] MEDS: ALPRAZolam 0.25 MG TABLET PO STA (12:20)
[2024-05-14] MEDS: PANTOprazole 40 MG TAB PO SCH (13:46)
--- NOTE | 2024-05-14 18:10 | Hospitalist Progress Note ---
Date of Service May 14, 2024 Assessment & Plan (1) (HFpEF) heart failure with preserved ejection fraction: Plan: Acute exacerbation of HFpEF likely due to uncontrolled hypertension Rec tele, continue IV diuresis, monitor renal function and electrolytes Echo in AM Uncontrolled hypertension Monitor and adjust regimen for optimal control Meliton Minimal elevation in creatinine sec to CHF exacerbation and uncontrolled hypertension / improving Avoid unnecessary nephrotoxins Monitor BMP Low sodium diet Anxiety Patient says it's due to Bumex / will change to Furosemide s/p Xanax - no improvement OOB as tolerated DVT Px Full code Admission and Anticipated Discharge Date Admission Date: May 13, 2024 Physical Exam Physical Exam: AAO#3, Non focal Lungs b/l basal crackles Heart RRR, LE Edema PA Soft, NT, ND, BS+ Skin no rash Results & Data Results & Data Vital Signs (Past 12 Hours) Vital Signs Temp Pulse Pulse Resp BP Pulse Ox O2 Del Method 05/14/24 15:32 36.9 C 77 19 176/81 H 95 Room Air 05/14/24 14:43 86 05/14/24 11:06 36.9 C 83 24 143/80 H 95 Room Air 05/14/24 10:06 Room Air 05/14/24 08:41 68 05/14/24 07:19 36.9 C 75 19 173/95 H 95 Room Air PG Care Time/CCT Total # of Minutes Spent Total Time Spent with Patient: Total time spent is greater than 50% in coordination of care (as documented) at patient's floor/unit and/or counseling patient: Coding Level of Care Code 01158 SUB INP/OBS CARE 2/35MIN Diagnoses Chronic heart failure with preserved ejection fraction I50.32 Heart failure chronicity: chronic (1) (HFpEF) heart failure with preserved ejection fraction Heart failure chronicity: chronic Qualified Code(s): I50.32 - Chronic diastolic (congestive) heart failure
[2024-05-15 07:01] LABS: BUN Creatinine Ratio 52.1 (10-20); Calcium 8.4 mg/dl (8.6-10.3); Creatinine Clr Calc Pharmacy 34.4 ml/min; Potassium 4.7 mmol/L (3.5-5.1)
[2024-05-15] MEDS: FUROSEMIDE 40 MG/4 ML VIAL IV SCH (08:45)
--- NOTE | 2024-05-15 19:37 | Hospitalist Progress Note ---
Date of Service May 15, 2024 Assessment & Plan (1) (HFpEF) heart failure with preserved ejection fraction: Plan: Acute exacerbation of HFpEF likely due to uncontrolled hypertension Rec tele, change to PO lasix if creatinine stable, monitor renal function and electrolytes Echo Uncontrolled hypertension - now controlled Continue current regimen Meliton - creatinine slightly worse today / hold lasix for tomorrow AM Minimal elevation in creatinine sec to CHF exacerbation and uncontrolled hypertension Avoid unnecessary nephrotoxins Monitor BMP Low sodium diet Anxiety Patient says it's due to Bumex / will change to Furosemide s/p Xanax - no improvement OOB as tolerated DVT Px Full code Admission and Anticipated Discharge Date Admission Date: May 13, 2024 Subjective shortness of breath better, anxiety improved as well, says bumex was causing anxiety and now that it's d/kit she feels better, received IV lasix this AM, ambulating to bathroom independently and says her balance is good Physical Exam Physical Exam: AAO#3, Non focal Lungs b/l basal crackles improved Heart RRR, LE Edema PA Soft, NT, ND, BS+ Skin no rash Results & Data Results & Data Vital Signs (Past 12 Hours) Vital Signs Temp Pulse Pulse Resp BP Pulse Ox O2 Del Method 05/15/24 16:01 36.6 C 84 18 120/72 94 Room Air 05/15/24 14:08 83 05/15/24 11:45 36.4 C L 81 19 131/70 95 Room Air PG Care Time/CCT Total # of Minutes Spent Total Time Spent with Patient: Total time spent is greater than 50% in coordination of care (as documented) at patient's floor/unit and/or counseling patient: Coding Level of Care Code 29945 SUB INP/OBS CARE 2/35MIN Diagnoses Chronic heart failure with preserved ejection fraction I50.32 Heart failure chronicity: chronic (1) (HFpEF) heart failure with preserved ejection fraction Heart failure chronicity: chronic Qualified Code(s): I50.32 - Chronic diastolic (congestive) heart failure
[2024-05-16] MEDS: ALUMINUM/MAGNESIUM SUSP 30 ML UDC PO PRN (00:22)
[2024-05-16 07:13] LABS: BUN Creatinine Ratio 49.3 (10-20); Calcium 8.4 mg/dl (8.6-10.3); Creatinine Clr Calc Pharmacy 31.6 ml/min; Magnesium 2.6 mg/dl (1.7-2.4); Potassium 4.6 mmol/L (3.5-5.1)
--- NOTE | 2024-05-16 10:02 | Hospitalist Progress Note ---
Date of Service May 16, 2024 Assessment & Plan (1) (HFpEF) heart failure with preserved ejection fraction: Plan: Acute on chronic HFpEF Suspected incited by uncontrolled hypertension Patient reported anxiety due to Bumex and was switched to Lasix. This is tem porarily held for increasing creatinine Echo 05/14/2024 with EF 55-60%, no regional wall motion abnormalities, borderline concentric LVH no significant valvular disease EKG on admission sinus with PVCs/PACs No tachycardia or hypoxia to suggest PE. Low-sodium Suspect that she is actually slightly volume contracted from overdiuresis today, encouraged to drink water. She does have a significant venous stasis component and will need to use fluid mobilization strategy including wraps and elevation. HFpEF component does appear improved Uncontrolled hypertension Normotensive throughout the day 05/15 although rising blood pressures prior to morning medications Will continue metoprolol, hydralazine p.o. 3 times daily Valsartan held and spironolactone deferred due to hyperkalemia and history of headache to spironolactone Metoprolol uptitrated for above goal blood pressure and palpitations. 25 mg tartrate x 1 given and succinate uptitrated to 75 mg for tomorrow. rhythm sinus with PACs/occasional PVCs. No abnormalities overnight. Continue to monitor for bradycardia and adequate control, will adjust as needed [place] Baseline creatinineApproximately 1.21.46. 1.4, and now rising to 1.52 on 1/2 Valsartan, Lasix held. Free water encouraged Reflux/IBS/GERD Prefers FODMAP diet if possible, encouraged to pursue the food she would normally eat at home on the menu is unfortunately do not have a FODMAP specific diet while inpatient Continue Protonix DVT prophylaxis: Heparin due to renal dysfunction Diet: Heart healthy/low-salt CODE STATUS: Full code Admission and Anticipated Discharge Date Admission Date: May 13, 2024 Subjective Patient reports that she had palpitations, feeling flushed, feeling of gas overnight which made her feel like she was back to square 1. She does not feel short of breath at time of visit. She is very anxious about her palpitations and her predominant component. She notes this is worse when she feels bloated and this gives her a feeling of chest pressure but she notes that the pressure has always felt better when she burps. Physical Exam Physical Exam: General: A&Ox3. NAD. Cooperative. HEENT: Atraumatic, normocephalic. Pulm: CTAB A&P. -wheezes, -rales, -rhonchi. Symmetrical chest rise. No increased work of breathing. No respiratory distress. Cardiac: RRR, -mrg. Radial pulses intact and symmetrical. Abdominal: Nontender, nondistended, soft. BS present. Results & Data Results & Data Vital Signs (Past 12 Hours) Vital Signs Temp Pulse Pulse Resp BP Pulse Ox O2 Del Method 05/16/24 07:07 36.5 C 84 19 152/73 H 96 Room Air 05/16/24 04:21 36.5 C 80 18 143/81 H 96 Room Air 05/16/24 00:00 75 05/15/24 23:23 36.7 C 81 16 139/74 95 Room Air PG Care Time/CCT Total # of Minutes Spent Total Time Spent with Patient: Total time spent is greater than 50% in coordination of care (as documented) at patient's floor/unit and/or counseling patient: Coding Level of Care Code 53208 SUB INP/OBS CARE 3/50MIN Diagnoses Chronic heart failure with preserved ejection fraction I50.32 Heart failure chronicity: chronic (1) (HFpEF) heart failure with preserved ejection fraction Heart failure chronicity: chronic Qualified Code(s): I50.32 - Chronic diastolic (congestive) heart failure
[2024-05-16] MEDS: METOPROLOL TARTRATE 50 MG TAB PO STA (10:12)
[2024-05-16 10:23] LABS: Phosphorus 5.5 mg/dl (2.5-4.9)
--- NOTE | 2024-05-16 11:01 | XRay Report ---
XR chest 1V portable CLINICAL HISTORY: CHF progression, dyspnea, reeval TECHNIQUE: Single frontal radiograph of the chest was obtained. Comparison: Comparison is made to chest radiograph 05/13/2024 FINDINGS: No lines and tubes are seen. Cardiomegaly is noted. The lungs are clear. Trace right pleural effusion . IMPRESSION: Trace pleural effusion. Cardiomegaly without pulmonary edema. ACT 112: Negative or not required by law. Electronically signed by: Nikos Joya M.D. 05/16/2024 11:00 AM
[2024-05-16 19:03] LABS: Influenza A virus by PCR Negative (Neg); Influenza B virus by PCR Negative (Neg); RSV by PCR Negative (Neg); SARS CoV2 RNA(COVID-19) Ceph NEGATIVE (Negative)
[2024-05-17 03:22] VITALS: O2SAT 94
[2024-05-17 07:24] VITALS: BP 162/78; PULSE 73; RESP 19; TEMP 97.7
[2024-05-17 07:34] LABS: BUN Creatinine Ratio 52.6 (10-20); Calcium 8.4 mg/dl (8.6-10.3)
[2024-05-17] MEDS: METOPROLOL SUCC 25MG EXT REL TAB PO SCH (09:00)
--- NOTE | 2024-05-17 09:36 | Discharge Summary ---
Discharge Summary Date of Service May 17, 2024 Principal Dx & Hospital Course #1 = Principal Diagnosis (1) (HFpEF) heart failure with preserved ejection fraction: 78-year-old female with a history of HFpEF, hypertension, reflux who presented with severe hypertension and volume overload. Clinically improved with diuresis. Creatinine williams and patient was euvolemic/slightly hypovolemic day prior to discharge, diuretics were held and creatinine returned to baseline. She was discharged to continue her home diuretics. During her hospital course she had a feeling of shakiness and tremors and did have some palpitations with PACs and occasional PVCs on telemetry. Her metoprolol was uptitrated to 75 mg with clinical improvement. Patient was concerned that her rosuvastatin was contributing to this as she had recently started this medication, and preferred to hold this and discuss switching back to atorvastatin at her cardiology follow-up which was already scheduled for the following week. No concerns at time of discharge and felt well. Acute on chronic HFpEF Suspected incited by uncontrolled hypertension Patient reported anxiety due to Bumex and was switched to Lasix. This is temporarily held for increasing creatinine Echo 05/14/2024 with EF 55-60%, no regional wall motion abnormalities, borderline concentric LVH no significant valvular disease EKG on admission sinus with PVCs/PACs No tachycardia or hypoxia to suggest PE. Low-sodium Creatinine rise and patient was at her dry baseline, creatinine then down trended the following day Uncontrolled hypertension Normotensive throughout the day 05/15 although rising blood pressures prior to morning medications Will continue metoprolol, hydralazine p.o. 3 times daily Valsartan held and spironolactone deferred due to hyperkalemia and history of headache to spironolactone Metoprolol uptitrated for above goal blood pressure and palpitations. 25 mg tartrate x 1 given and succinate uptitrated to 75 mg for tomorrow. rhythm sinus with PACs/occasional PVCs. No abnormalities overnight. Continue to monitor for bradycardia and adequate control, will adjust as needed [place] Baseline creatinineApproximately 1.21.46. Downtrended back to baseline day of discharge Reflux/IBS/GERD Prefers FODMAP diet if possible, encouraged to pursue the food she would normally eat at home on the menu is unfortunately do not have a FODMAP specific diet while inpatient Did meet with dietitian, finds that slippery diet helps her reflux symptoms significantly and was happy to continue this on discharge. No difficulty eating day of discharge DVT prophylaxis: Heparin due to renal dysfunction Diet: Heart healthy/low-salt CODE STATUS: Full code Admission HPI Per Admitting Provider Patient is a 78 y/o female with h/o HFpEF presented to ED c/o shortness of breath, LE edema, abdominal bloating, decreased appetite and easy fatigue. She reports compliance with her med regimen and denies increased salt or fluid intake. She denies associated chest pain, palpitations, lightheadedness or fever but was experiencing chills. She reports improvement in her symptoms after IV Bumex in ED. Discharge Exam General: A&Ox3. NAD. Cooperative. HEENT: Atraumatic, normocephalic. Vision and hearing grossly intact Pulm: Symmetrical chest rise. No increased work of breathing. No respiratory distress. Cardiac: RRR, -mrg. Radial pulses intact and symmetrical. Discharge Plan Discharge Items Patient Disposition: Home - Self-Care Reason For Visit: CHF Discharge Diagnosis: CHF Activity: Resume your previous activity Non-emergency contact: Primary Care Provider and Ion Exchange Operator Call non-emergency contact if: you have any medication questions and your symptoms worsen Follow-up/Referrals: Jacob Victoria DO [Primary Care Provider] - Diet: Heart Healthy Addtl Attending Provider Instructions: Seen in the hospital for heart failure with preserved ejection fraction and were treated with diuretics. You clinically improved, day prior to discharge appeared to be at your normal/slightly dry baseline diuretics were held for 1 day and your creatinine subsequently improved. You were discharged to continue your home medications. You had experienced a feeling of tremulousness and shakiness in the hospital. Your metoprolol was changed to 75 mg extended release daily. Your case was discussed with cardiology who agreed with these changes. You also noted that the shakiness may be due to rosuvastatin versus heparin and preferred to hold these medications. It is unlikely that the heparin was contributing to your feelings of shakiness, and is rare for statin to contribute to this however as you had recently started rosuvastatin right when the symptoms started this was held and is reasonable to switch back to atorvastatin at your follow-up visit. you have a follow-up with Dr. Camarillo this coming week, please keep that follow-up appointment If you develop any new or worsening symptoms including fever, chills, sweats, chest pain, chest pressure, difficulty breathing, uncontrolled nausea/vomiting, rash, wheezing, passing out or nearly passing out, bleeding, black/bloody bowel movements, or other new or concerning symptoms please call your primary care physician, or call 911 for re-evaluation in the emergency department if you are very concerned. Stand-Alone Forms: My [facility], Smoking Cessation Medications and DC Order Prescriptions: New metoprolol succinate 25 mg Tablet Extended Release 24 Hr 75 mg PO DAILY 30 Days Qty: 90 0RF Continued clopidogrel 75 mg tablet 75 mg PO DAILY Qty: 90 3RF potassium chloride 20 mEq tablet extended release 20 meq PO DAILY PRN (Reason: Days taking torsemide) Qty: 90 1RF Hold Instructions: Per pt per Dr. Victoria valsartan 40 mg tablet 40 mg PO QAM Qty: 90 3RF Hold Instructions: Resume on 05/10/24. hold until you talk to your cardio logist famotidine [Pepcid AC] 10 mg tablet 10 mg PO DAILY PRN (Reason: Other) bumetanide 1 mg tablet 1 mg PO DAILY PRN (Reason: edema) Qty: 30 0RF Hold Instructions: Per pt per Dr. Victoria Discontinued metoprolol succinate 50 mg tablet extended release 24 hr 50 mg PO DAILY Qty: 90 3RF rosuvastatin 20 mg tablet 20 mg PO DAILY Qty: 90 3RF Discharge Orders: Discharge Order (Routine); Ordered 05/17/24 Ordered By: Emiliano Barone/Other Patient Handouts: What Is Heart Failure Admission Data Admit Date/Time: 05/13/24 17:45 Attending Provider: Emiliano Baker Admit Provider: Hilda Posadas Primary Care Provider: Jacob Victoria Hospital Stay Data Discharge Instructions Given to Patient (Per Discharging Provider) Seen in the hospital for heart failure with preserved ejection fraction and were treated with diuretics. You clinically improved, day prior to discharge appeared to be at your normal/slightly dry baseline diuretics were held for 1 day and your creatinine subsequently improved. You were discharged to continue your home medications. You had experienced a feeling of tremulousness and shakiness in the hospital. Your metoprolol was changed to 75 mg extended release daily. Your case was discussed with cardiology who agreed with these changes. You also noted that the shakiness may be due to rosuvastatin versus heparin and preferred to hold these medications. It is unlikely that the heparin was contributing to your feelings of shakiness, and is rare for statin to contribute to this however as you had recently started rosuvastatin right when the symptoms started this was held and is reasonable to switch back to atorvastatin at your follow-up visit. you have a follow-up with Dr. Camarillo this coming week, please keep that follow-up appointment If you develop any new or worsening symptoms including fever, chills, sweats, chest pain, chest pressure, difficulty breathing, uncontrolled nausea/vomiting, rash, wheezing, passing out or nearly passing out, bleeding, black/bloody bowel movements, or other new or concerning symptoms please call your primary care physician, or call 911 for re-evaluation in the emergency department if you are very concerned. Total Time Total Time Spent Total Time Spent (In Minutes): Time spend day of discharge 35 minutes including direct patient care, documentation, review of labs and images, and coordination of care. Coding Level of Care Code 87878 INP/OBS DISCH >30 MIN Diagnoses Chronic heart failure with preserved ejection fraction I50.32 Heart failure chronicity: chronic
--- NOTE | 2024-05-20 11:12 | Coding Query ---
CODING QUERY To promote full compliance with coding requirements relating to patient care, provider participation is requested in all cases of cold storage superintendent uncertainty. Please assist us with the question(s) below: Please clarify the meaning of [place]. [place] is not a valid abbreviation. Thank you. ( ) Acute Kidney Injury (x ) Acute Kidney Insufficiency ( ) Other (Specify): Principal Diagnosis: "that condition established after study, to be chiefly responsible for occasioning the admission of the patient to the hospital for care." Co-Existing Principal Diagnosis: "when two or more diagnoses equally meet the criteria for principal diagnosis as determined by the circumstances of admission, diagnostic work up, and/or therapy provided, and the Alphabetic Index, Tabular List, or another coding guideline does not provide sequencing direction, any one of the diagnoses may be sequenced first." "When the physician has documented what appears to be a current diagnosis in the body of the record, but has not included the diagnosis in the final diagnostic statement, the physician should be asked whether the diagnosis should be added." (Source [facility]oding [facility] 2 QTR90. p3-4) ZACARIAS
== END 2024-05-17 11:13 | disposition home or self-care (01) | DRG 291 ==
LOC: ED 12:24 → EDINP 17:45 → SUATTDRO 17:45 → 2S 20:44